=== PATIENT | female | born 1945 | race Caucasian/White ===

== ENCOUNTER → 2020-01-06 13:39 | Outpatient (BNVA) | payer MEDICARE, SELFPAY | PROVIDERS: Family Provider Family Medicine; PCP Family Medicine; Visit Provider Family Medicine | DX: M54.2 Cervicalgia (principal); M54.5 Low back pain; M25.512 Pain in left shoulder | CPT/HCPCS: 72040; 72100; 73030 ==

== ENCOUNTER → 2020-01-07 16:11 | Outpatient (BNVA) | payer MEDICARE, SELFPAY | PROVIDERS: Family Provider Family Medicine; PCP Family Medicine; Referring Provider Family Medicine; Visit Provider Orthopaedic Surgery | DX: M25.512 Pain in left shoulder (principal); S40.012A Contusion of left shoulder, initial encounter | CPT/HCPCS: 73030 ==

== ENCOUNTER 2021-06-01 15:16 | Outpatient (CLI) | payer MEDICARE, SELFPAY ==
--- NOTE | 2021-06-01 15:20 | USCV_ITS ---
Lorie Wong Age: 75 Gender: F : 1945 Exam Date: 06/01/2021 15:32 Ordering Phys: Zaida Arredondo EXPERIMENTAL PLASTICS FABRICATOR EXPERIMENTAL PLASTICS FABRICATOR Technologist: Khoi Us Exam Location: [facility] [place] Indication: dyspnea BP: 130 / 77 HR: 88 Rhythm: Sinus Technical Quality: Adequate MEASUREMENTS (Male / Female) Normal Values 2D ECHO LV Diastolic Diameter PLAX 4.7 cm 4.2 - 5.9 / 3.9 - 5.3 cm LV Systolic Diameter PLAX 3.7 cm IVS Diastolic Thickness 0.7 cm 0.6 - 1.0 / 0.6 - 0.9 cm IVS Systolic Thickness 1.3 cm LVPW Diastolic Thickness 1.0 cm 0.6 - 1.0 / 0.6 - 0.9 cm LVPW Systolic Thickness 1.1 cm LVOT Diameter 2.0 cm LV Ejection Fraction 2D Teich 42.6 % LV Ejection Fraction MOD 2C 19.8 % LV Ejection Fraction 2C AL 17.9 % LA Diameter 3.4 cm LA Width 2.4 cm Aorta at Sinotubular Diameter 3.3 cm M-MODE Aortic Annulus Diameter 2.5 cm LA Ao Ratio MM 1.3 MV E Point Septal Separation 1.3 cm DOPPLER AV Peak Velocity 139.0 cm/s LVOT Peak Velocity 93.0 cm/s AV Area Cont Eq vti 2.3 cm squared AV Area Cont Eq pk 2.2 cm squared MV Area PHT 5.0 cm squared Mitral E to A Ratio 0.7 MV E' Velocity 34.0 cm/s Mitral E to MV E' Ratio 10.6 Mitral E to LV E' Lateral Ratio 12.2 Mitral E to LV E' Septal Ratio 9.5 TR Peak Velocity 364.0 cm/s TR Peak Gradient 53.0 mmHg TV Peak E Velocity 82.0 cm/s Right Atrial Pressure 3.0 mmHg Pulmonary Artery Systolic Pressu 56.0 mmHg PV Peak Velocity 62.0 cm/s RV Acceleration Time 0.1 s FINDINGS Left Ventricle Normal left ventricular size. LV systolic function is moderate to severely reduced with EF of 30-35%. Moderate to severe global hypokinesis is seen. Grade 1 diastolic dysfunction Right Ventricle The right ventricle is normal in size and function. Right Atrium The right atrium is normal in size. Left Atrium The left atrium is mildly dilated Mitral Valve Structurally normal mitral valve without significant stenosis or prolapse. There is mild mitral regurgitation. Aortic Valve Aortic valve is thickened without significant stenosis. There is no aortic regurgitation. Tricuspid Valve Structurally normal tricuspid valve without significant stenosis. Mild to moderate tricuspid regurgitation. RVSP is 55- 60mmHg. This is consistent with mild to moderate pulmonary hypertension Pulmonic Valve Structurally normal pulmonic valve without significant stenosis. There is no pulmonic regurgitation. Pericardium Normal pericardium without effusion. Aorta Normal ascending aorta dimension. CONCLUSIONS LV systolic function is moderate to severely reduced with EF of 30-35% Moderate to severe global hypokinesis is seen Grade 1 diastolic dysfunction Mild mitral regurgitation Mild to moderate tricuspid regurgitation. RVSP is 55 to 60 mmHg. This is consistent with mild to moderate pulmonary hypertension Compared to prior echocardiogram from 01/09/2018, LV systolic function has decreased further. Aj Beauchamp MD (Electronically Signed) Final Date: 09 June 2021 12:23 S
== END 2021-06-01 15:17 | disposition home or self-care (01) ==
LOC: RAD 15:18
PROVIDERS: Visit Provider Nurse Practitioner Family
DX: R06.00 Dyspnea, unspecified (principal); I08.1 Rheumatic disorders of both mitral and tricuspid valves
CPT/HCPCS: 93306

== ENCOUNTER 2021-06-16 07:07 | Outpatient (CLI) | payer MEDICARE, SELFPAY ==
[2021-06-16 07:22] VITALS: BMI 17.8
--- NOTE | 2021-06-16 07:23 | ECG_ITS ---
[facility] Test Date: 2021-06-16 Pat Name: Lorie Wong Department: Room: Gender: Female Splitting Machine Feeder: Cyndy Pinto : 1945 Requested By: Laura Valentine Order Number: [id number] Gelacio MD: Laura Valentine M.D. Interpretive Statements NAME OF STUDY: LEXISCAN SESTAMIBI STRESS TEST INDICATION: Chest Pain, SEND RESULTS TO [facility] PROCEDURE: At the baseline, the EKG revealed sinus bradycardia with a rate of 52 bpm. Poor R wave progression. Nonspecific T wave changes. The baseline blood pressure was 136/85 mm Hg with a heart rate of 52 beats/min. Lexiscan was infused over a period of 20 seconds. A total of 0.4 milligrams of Lexiscan was infused. The stress phase was continued for a total of 5 minutes. Heart rate at the end of the stress phase was 93 with a blood pressure 146/76. The EKG at the peak infusion revealed no significant changes. Sestamibi was injected 20 seconds after the Lexiscan infusion. Blood pressure at the end of the recovery phase was 150/78 with a heart rate of 90 per minute. CONCLUSION: 1. No significant EKG changes with the LexiScan infusion 2. No LexiScan induced chest pain or cardiac arrhythmia 3. Normal blood pressure and heart rate response 4. Sestamibi/sestamibi perfusion scan pending; see separate report. Electronically Signed On 06-17-2021 19:37:19 BELT BUILDER HELPER by Laura Valentine M.D. [id number]
--- NOTE | 2021-06-16 07:24 | NMCV_ITS ---
NM celeste perf SPECT r/s* [id number] Lorie Wong Age: 75 Gender: F : 1945 Exam Date: 06/16/2021 08:03 Ordering Phys: Laura Valentine MD ([email or web address]) Technologist: STAN Clinton Exam Location: [facility] Indications: CHEST PAIN STRESS TEST Please see separate stress test report in [facility] for full findings IMAGE PROTOCOL Rest/Stress 1 Lexiscan Day Radiopharmaceutical Dose (mCi) Administration Site Administered by Rest: Tc-99m 10.6 IV STAN Hernandez Sestamibi Stress:Tc-99m 32.2 IV STAN Clinton Sestamishen Rest: 16-Jun-2021 60 Discovery 630 Stress: 16-Jun-2021 30 Discovery 630 0.4mg Lexiscan. Supine position only as patient was unable to lay prone. SPECT RESULTS Technical Quality: Good Raw Data Analysis: Normal Image Corrections: No attenuation or motion correction applied Summed Stress Score: 4 Summed Rest Score: 2 Summed Difference Score: 2 PERFUSION FINDINGS Moderate area of moderately decreases uptake in the basal and mid inferolateral, mid anteroseptal, apical septal and LV apex. Subtle area reversibility was noted in the basal inferolateral and LV apex FUNCTIONAL RESULTS (calculated via Gated SPECT) Stress Image LV EF (%): 48 Stress EDV (mL):128 TID: 1.03 Stress ESV (mL):67 FUNCTIONAL FINDINGS: Segmental wall motion analysis revealed mild diffuse hypokinesia of the LV apex. IMPRESSIONS 1. Myocardial perfusion imaging revealing moderate area of persistent decreased tracer uptake in the inferolateral, anteroseptal and some apical segments with small areas of reversibility in the basal inferolateral and LV apex suggesting myocardial scarring predominantly in the distribution of the left circumflex artery with small areas of ella-infarction ischemia. 2. Slightly diminished left ventricular ejection fraction of 40%. 3. LV wall motion analysis revealing mild diffuse hypokinesia of the LV apex. 4. Mildly dilated LV cavity with an end-systolic volume of 67 mL No similar previous studiesare available for comparison. Dr Laura Valentine MD FACC (Electronically Signed) Final Date: 16 June 2021 14:22 S
[2021-06-16] MEDS: regadenoson 0.4 Mg/5 ml Syringe IVP (08:39)
[2021-06-16 08:51] VITALS: BP 150/78; PULSE 91
== END 2021-06-16 07:08 | disposition home or self-care (01) ==
LOC: CDL 07:08
PROVIDERS: Visit Provider Internal Medicine Cardiovascular Disease
DX: R07.9 Chest pain, unspecified (principal); I25.9 Chronic ischemic heart disease, unspecified
CPT/HCPCS: 78452; 93017; A9500; J2785

== ENCOUNTER → 2021-06-22 15:29 | Outpatient (BNVA) | payer MEDICARE, SELFPAY | PROVIDERS: Visit Provider Internal Medicine Cardiovascular Disease | DX: I42.8 Other cardiomyopathies (principal); R00.1 Bradycardia, unspecified; I10 Essential (primary) hypertension; R55 Syncope and collapse | CPT/HCPCS: 99215 ==

== ENCOUNTER → 2021-07-13 09:55 | Outpatient (BNVA) | payer MEDICARE, SELFPAY | PROVIDERS: Visit Provider Thoracic Surgery (Cardiothoracic Vascular Surgery) | DX: Z20.822 Contact with and (suspected) exposure to COVID-19 (principal) | CPT/HCPCS: 99999 ==

== ENCOUNTER → 2021-07-14 13:26 | Outpatient (BNVA) | payer MEDICARE, SELFPAY | PROVIDERS: Visit Provider Thoracic Surgery (Cardiothoracic Vascular Surgery) | DX: I42.8 Other cardiomyopathies (principal) ==

== ENCOUNTER 2021-07-19 06:17 | Observation (INO) | payer MEDICARE, SELFPAY ==
[2021-07-13 11:52] VITALS: BMI 17.8
[2021-07-13 12:24] LABS: Basophils # 0.1 10^3/uL (0.0-0.1); Basophils % 0.7 %; Eosinophils # 0.3 10^3/uL (0.0-0.8); Eosinophils % 4.5 %; Hematocrit 44.9 % (37.0-47.0); Hemoglobin 14.5 g/dL (11.5-15.3); Lymphocytes # 1.4 10^3/uL (0.8-4.8); Lymphocytes % 20.5 %; Mean Corpuscular HGB Conc 32.3 g/dL (30.0-36.0); Mean Corpuscular Hemoglobin 30.8 pg (28.0-34.0); Mean Corpuscular Volume 95.3 fl (81-99); Mean Platelet Volume 9.7 fL (7.4-10.4); Monocytes # 0.4 10^3/uL (0.2-0.9); Monocytes % 6.2 %; Neutrophils # 4.71 10^3/uL (1.8-7.7); Nucleated Red Blood Cells % 0 %; Platelet Count 244 10^3/cmm (130-400); Red Blood Count 4.71 10^6/uL (4.1-5.3); Red Cell Distribution Width 13.2 % (12.1-15.1); White Blood Count 6.9 10^3/uL (4.0-10.0)
[2021-07-13 12:51] LABS: Anion Gap 10.8 (5-19); Blood Urea Nitrogen 15 mg/dL (8-23); Calcium 9.9 mg/dL (8.5-10.5); Carbon Dioxide 29 mmol/L (22-29); Chloride 103 mmol/L (98-107); Glucose 106 mg/dL (65-115); Osmolality Calculated 289 mOsm/kg (285-295); Potassium 3.8 mmol/L (3.5-5.1); Sodium 139 mmol/L (136-145)
[2021-07-13 13:02] LABS: Add Urine Microscopic? NO; Bilirubin Urine Neg (Negative); Blood Urine Neg (Negative); Charge for UA Resulting for Rev; Glucose Urine UA Norm (Normal); Ketones Urine Negative (Negative); Leukocyte Esterase Urine Negative (Negative); Nitrate Urine Negative (Negative); Protein Urine Neg (Negative); Specific Gravity, Urine 1.005 (1.005-1.030); Urine Appearance Clear (CLEAR); Urine Color Straw (Yellow); Urobilinogen Urine Norm (Negative); pH Urine 7 (5-7)
[2021-07-13 13:16] LABS: Adenovirus Not Detected (NOT DETECT); Chlamydia Pneumoniae Not Detected (NOT DETECT); Coronavirus 229E,HKU1,NL63,OC4 Not Detected (NOT DETECT); Human Metapneumovirus Not Detected (NOT DETECT); Human Rhinovirus/Enterovirus Not Detected (NOT DETECT); Influenza A Not Detected (NOT DETECT); Influenza A H1 Not Detected (NOT DETECT); Influenza A H1-2009 Not Detected (NOT DETECT); Influenza A H3 Not Detected (NOT DETECT); Influenza B Not Detected (NOT DETECT); Mycoplasma Pneumoniae Not Detected (NOT DETECT); Parainfluenza Virus Type 1 Not Detected (NOT DETECT); Parainfluenza Virus Type 2 Not Detected (NOT DETECT); Parainfluenza Virus Type 3 Not Detected (NOT DETECT); Parainfluenza Virus Type 4 Not Detected (NOT DETECT); Respiratory Syncytial Virus A Not Detected (NOT DETECT); Respiratory Syncytial Virus B Not Detected (NOT DETECT); SARS-COV-2 Not Detected (NOT DETECT)
--- NOTE | 2021-07-13 16:26 | ANES.PREANE2 ---
Pre-Anesthetic Assessment Height/Weight: Height 1.7 m Weight 51.71 kg Preop Diagnosis: Non ischemic cardiomyopathy w/ symptomatic bradycardia Operation Date: 07/19/21 07:00 Proposed Procedures p Defibrillator Placement(Not Applicable) - Levi Evans MD Familial anesthetic complications: None Was Beta Debi taken within 24 hours: N/A Was Clonidine taken within 24 hours: N/A Social No alcohol and No tobacco Exam alert, oriented x 3, clear to auscultation bilaterally and regular rate & rhythm Airway Submandibular: within normal limits Cervical ROM: Other (Limited ROM ) Mallampati: Class II Comments: Comments: Missing teeth, poor dentition Pulmonary None reported CV/HEM Arrythmia (2nd degree block, ectopic supraventricular and ventricular beats ), Congestive Heart Failure (Cardiomyopathy w/ EF of 30-40% on stress test improved since TTE 05/2021), Hypertension and Murmur (MR, TR) Hx of viral pericarditis w/ effusion Atypical chest pain Uses PRN nitroglycerin Bradycardia w/ near syncope Data from Cardiology Note 06/16/21 Stress Test ?1.? Myocardial perfusion imaging revealing moderate area of persistent ?decreased tracer uptake in the inferolateral, anteroseptal and some apical ?segments with small areas of reversibility in the basal inferolateral and LV ?apex suggesting myocardial scarring predominantly in the distribution of the ?left circumflex artery with? small areas of ella-infarction ischemia. ?2.? Slightly diminished left ventricular? ejection fraction of 40%. ?3.? LV wall motion analysis revealing mild diffuse hypokinesia of the LV apex. ?4.? Mildly dilated LV cavity with? an end-systolic volume of 67 mL ?No similar previous studiesare? available for comparison. 1. No significant EKG changes with the LexiScan infusion 2. No LexiScan induced chest pain or cardiac arrhythmia 3. Normal blood pressure and heart rate response 06/01/21 Echo LV systolic function is moderate to severely reduced with EF of ?30-35% ?Moderate to severe global hypokinesis is seen ?Grade 1 diastolic dysfunction ?Mild mitral regurgitation ?Mild to moderate tricuspid regurgitation.? RVSP is 55 to 60 ?mmHg.? This is consistent with mild to moderate pulmonary ?hypertension ?Compared to prior echocardiogram from 01/09/2018, LV systolic ?function has decreased further. 05/12/21 Event Monitor 1.? The baseline rhythm was found to be [normal sinus] with a first-degree AV block and overall average heart rate beat of 67 bpm.? Very frequent supraventricular ectopics and occasional ventricular ectopics were noted 2.? Episodes of second-degree type I and type II AV block's with? bradycardia and the lowest heart rate of 28 bpm was noted on 05/13/2021 at 11:28 PM.? This was found to be asymptomatic.? 1 episode of nonsustained nuclear tachycardia 4 beats was found to be asymptomatic 3.? There is 1 pause of 3.2 seconds associated with a second-degree type I AV block, occurred on 06/09/2021 at 2:31 AM. No similar previous studies are available for comparison EKG from 05/05/2021 Shows multifocal atrial rhythm.? Left axis deviation Nonspecific T wave changes Poor R wave progression None reported Hepatic None reported GI None reported Metabolic None reported Musc/skel None reported Neuropsych Anxiety Anesthetic Plan ASA status: 3 Anesthesia: Anesthesia Evaluation, General and MAC Other: I discussed with the patient risks, goals, and benefits of MAC and general anesthesia. We discussed spectrum of MAC anesthesia including conversion to general as well as possibility of recall of intraoperative stimuli including discomfort/pain. We discussed risk and benefits of general anesthesia including PONV, sore throat (sometimes severe), corneal abrasion, positioning and peripheral nerve injuries, life threatening allergic reaction, post operative ICU admission requiring prolonged intubation, stroke, heart attack, , and rare incidences of recall. Patient consents to proceed with MAC or general anesthesia pending further discussion w/ surgeon. Risk of > 500 ml blood loss (7ml/kg in children): No Medications/Allergies Home Medications Medication Instructions Recorded Confirmed Last Taken Type losartan 25 mg tablet 25 mg PO DAILY tab 10/13/19 07/13/21 Unknown History nitroglycerin 0.4 mg sublingual 0.4 mg SUBLINGUAL Q5M PRN 10/13/19 07/13/21 Unknown History tablet aspirin 81 mg tablet,delayed 81 mg PO DAILY #30 tab 06/22/21 07/13/21 Unknown Rx release (Adult Aspirin Regimen) Allergies Allergy/AdvReac Type Severity Reaction Status Date / Time No Known Allergies Allergy Verified 06/22/21 09:22 [facility] Anesthesia Medical History Anxiety Arrhythmia Benign essential HTN Cardiomyopathy History of chronic fatigue Hx of cardiac arrhythmia Hx of cardiomyopathy Hx of chest pain Hx of essential hypertension Hx of viral pericarditis Hypertension Near syncope Surgical History History of breast lump removal History of partial hysterectomy Family History Brother CAD (coronary artery disease) unknown age of onset Mother Dementia Father Diabetes Other Suicide Denies family history of Clotting disorder Chronic kidney disease (CKD) Anesthesia complication Bleeding disorder Lung disease Cancer Stroke Social History Smoking and tobacco status: never smoked Second hand smoke exposure: Yes Alcohol intake: never Lives independently: Yes Household members: significant other Marital status: Life Partner History of recent travel: No Current gender identity: Female Special yennifer needs: No Agree to transfusion: Yes Data Anesthesia : 07/13/21 12:09 07/13/21 12:09 Short CBC 07/13/21 Range/Units 12:09 WBC 6.9 (4.0-10.0) 10^3/uL Hgb 14.5 (11.5-15.3) g/dL Hct 44.9 (37.0-47.0) % MCV 95.3 (81-99) fl Plt Count 244 (130-400) 10^3/cmm Neut % (Auto) 68.0 % Neut # (Auto) 4.71 (1.8-7.7) 10^3/uL BMP 07/13/21 12:09 Sodium 139 Potassium 3.8 Chloride 103 Carbon Dioxide 29 BUN 15 Creatinine 0.5 Glucose 106 Calcium 9.9 Urine 07/13/21 Range/Units 11:44 Urine Color Straw (Yellow) Urine Appearance Clear (CLEAR) Urine pH 7 (5-7) Ur Specific [place] 1.005 (1.005-1.030) Urine Protein Neg (Negative) Urine Glucose (UA) Norm (Normal) Urine Ketones Negative (Negative) Urine Nitrate Negative (Negative) Urine Bilirubin Neg (Negative) Ur Leukocyte Esterase Negative (Negative) COVID Results 07/13/21 10:05 Coronavirus 229E (PCR) Not detected SARS-CoV-2 (PCR) Not detected Cardiac Studies: Echocardiogram 06/01/21 Sestamibi Stress Test (Cardiology) 06/16/21 Cardiac Event Monitor 05/12/21 Holter Monitor 11/12/19
[2021-07-19] VITALS (36 sets, daily range): BP systolic 93–172; BP diastolic 55–100; PULSE 60–88; RESP 15–26; TEMP 36.5–37.1; O2SAT 95–100
--- NOTE | 2021-07-19 | SCC_ITS ---
Procedure done: 2-lead AICD implantation 164.8 seconds of fluoroscopic guidance, for a cumulative dose of 19.18 mGy, was provided to Dr. Evans by the radiology department. C-arm images of the chest were saved for the patient's permanent record. [facility]
--- NOTE | 2021-07-19 06:17 | XR_ITS ---
WS: [id number] XR chest 1V portable [id number] REASON FOR EXAM: Preop for AICD implantation FINDINGS: Chest is unchanged compared to 10/26/2017. Mild tortuosity the thoracic aorta without aneurysmal dilatation. Moderate cardiomegaly. Calcified granulomatous disease in both hemithoraces. No acute pulmonary parenchymal pleural disease. Mild to moderate degenerative spondylosis in the mid and lower thoracic spine. XR/XR chest 1V portable [id number] IMPRESSION: Cardiomegaly. No acute chest abnormality.
--- NOTE | 2021-07-19 06:17 | SC_ITS ---
WS: [id number] INTRAOPERATIVE TECHNIQUE: 2 Spot fluoroscopic images for intraoperative purposes. FLUOROSCOPY TIME: 164.8 seconds CLINICAL INFORMATION: AICD implantation COMPARISON: None. FINDINGS: Fluoroscopy used for cardiac pacer placement. Dual lead cardiac pacer wires visualized. SC/C-arm FL for Pacemaker IMPRESSION: Images obtained for intraoperative purposes.
--- NOTE | 2021-07-19 06:47 | W.PM.OPSUD ---
Surgery/Procedure H&P Update DATE OF PROCEDURE: July 19, 2021 DATE H&P PERFORMED: 07/14/21 H&P UPDATE INFORMATION: I have reviewed H&P completed within last 30 days, I have examined patient prior to procedure and No changes to prior documentation PREOP DIAGNOSIS: Medically refractory cardiomyopathy PRIMARY INDICATION FOR PROCEDURE: Nonischemic cardiomyopathy PLANNED PROCEDURE: Operation Date: 07/19/21 07:00 Proposed Procedures p Defibrillator Placement(Not Applicable) - Levi Evans MD
[2021-07-19] MEDS: sodium chloride 0.9% 1,000 ML 30 ML IV (06:48)
--- NOTE | 2021-07-19 06:51 | P.ANESUD_ITS ---
Pre-Anesthetic Update Pre-Anesthetic Assessment: Date of Surgery/Procedure: 07/19/21 Preop Elyssa gnosis: Medically refractory cardiomyopathy Proposed Procedure: Operation Date: 07/19/21 07:00 Proposed Procedures p Defibrillator Placement(Not Applicable) - Levi Evans MD Any changes to Pre-Anesthetic Assessment?: No Last Intake: Intake Last Liquid Date 07/18/21 Last Liquid Time 22:00 Last Solid Date 07/18/21 Last Solid Time 22:00 Vitals: Temperature 98.4 F 07/19/21 06:35 Temperature Source Temporal Artery S can 07/19/21 06:35 Pulse Rate 69 07/19/21 06:35 Pulse Rhythm 07/19/21 06:35 Pulse Strength 3+ Normal 07/19/21 06:35 Respiratory Rate 18 07/19/21 06:35 Blood Pressure 167/85 07/19/21 06:35 Blood Pressure Nica n 112 07/19/21 06:35 Pulse Oximetry 98 07/19/21 06:35 Oxygen Delivery Me thod 07/19/21 06:35 Exam: Pre-Anes Outpt Exam: alert, oriented x 3, clear to auscultation b ilaterally and regular rate & rhythm Other Pertinent Information: Other Pertinent Information: Took losartan 07/19/2021 with sip of water Cardiac Studies: Echocardiogram 06/01/21 Sestamibi Stress Test (Cardiology) 06/16/21 Cardiac Event Monitor 05/12/21 Holter Monitor 11/12/19
[2021-07-19] MEDS: ceFAZolin 1,000 mg SDV 1000 MG IRRIGATION (07:18)
[2021-07-19] MEDS: lidocaine 1% INJ 50 mL INJECTION (07:18)
--- NOTE | 2021-07-19 07:33 | XR_ITS ---
WS: [id number] PORTABLE CHEST HISTORY: DEFIB PLACEMENT (IN OR 1) COMPARISON: 07/19/2021 at 6:27 AM. Since the prior examination a LEFT subclavian dual lead defibrillator has been placed. There is a casandra y tiny LEFT apical pneumothorax. Cardiac size: Moderately enlarged. Adjacent atelectasis. Mild interstitial thickening may be due to s mall amount of fluid overload or atelectasis. Mediastinum/Aorta: Atherosclerosis aorta. No osseous abnormality seen. XR/XR chest 1V portable [id number] IMPRESSION: 1. Very tiny LEFT apical pneumothorax. 2. LEFT subclavian defibrillator placed since the prior study with position. 3. Cardiomegaly and suspect mild development of CHF. Notified Levi Evans MD at 07/19/2021 9:01 AM. LEFT message with answering ser vice.
--- NOTE | 2021-07-19 09:22 | SUR.PHASEI ---
0907 PT TO PACU 5 AWAKE ALERT TALKATIVE, NO RESP DISTRESS NOTED PT ON 3NC PER DR GARZON'S BEDSIDE REQUEST, WARM BLANKETS X 2 TO PT, VSS HOB AT 40 DEGREES, BILAT SCDS ON PT. DRESSING TO LT SHOULDER D/I SHOULDER IMMOBILIER IN PLACE, VSS. IV PATENT TO RT FOREARM #18.
--- NOTE | 2021-07-19 09:33 | P.OP_ITS ---
Operative Report Date of procedure: July 19, 2021 Pre-op diagnosis: Preop Diagnosis Medically refractory cardiomyopathy Post-op diagnosis: same Procedure done: 2-lead AICD implantation Implants: 2 leads atrial and ventricular Automatic implantable cardiac defibrillator generator. Pathology: none sent Surgeon: Levi Evans Anesthesia: MAC and Local Complications: Postop x-ray reveals tiny left apical pneumothorax. No obvious detriment to her pulmonary status of her oxygen saturation. Brief History: Ms. Wong is a frail, thin, short statured 75-year-old female with cardiomyopathy which has been medically refractory. She also has Holter monitoring reports revealing AV heart block intermittently. Dual-lead defibrillator implantation has been recommended by Dr. Valentine. Patient was evaluated preoperatively on outpatient basis and after careful discussion was stopped and scheduled for implantation. Details of risk of the procedure were carefully reviewed. Appropriate consents have been reviewed and signed. Procedure: Procedure: Ms Wong was taken to the OR suite and placed in the supine position over a shoulder roll. She received conscious sedation with continuous anesthesia monitoring by. Her entire chest was sterilely prepped and draped. 1% lidocaine was infiltrated in the left subclavicular region. While in Trendelenburg position, utilizing modified seldinger technique, a guidewire was placed in the left subclavian vein. This was confirmed in position by fluoroscopy. During the aspiration fortifying the left subclavian vein, there was suspicion that perhaps a small volume of air had been collected which could represent lung parenchymal injury. Patient was carefully observed throughout the remainder of the procedure and showed no evidence for pulmonary compromise or change in oxygen saturation. Receptive placed a second guidewire through the subclavian vein utilizing a 2 wire technique through the introducer. Next, after infiltration with lidocaine, a subcutaneous pocket was created beginning from the exit point of the guidewire and extending laterally and inferiorly. Cautery was utilized to create the pocket just above the pectoralis musculature. Hemostasis was confirmed. An antibiotic-soaked sponge was placed in the wound. A dilator and tear-away sheath was placed over the guidewire and advanced under fluoroscopy. Guidewire and dilator were removed. Next using a combination of curved and straight stylettes, the right ventricular lead was placed in position by fluoroscopy. The distal screw was extended. Interrogation was then performed confirming appropriate parameters. The tear-away sheath was then removed and the ventricular lead was sewn to the floor of the subcutaneous pocket. Next, atrial lead was placed in a similar fashion with fluoroscopic guidance. Patient was noted to be in atrial flutter at the time of atrial lead placement, therefore complete interrogation could not be completed. Generator was brought into the field, and after confirmation of hemostasis in the s ubcutaneous pocket, the leads was connected to the generator with appropriate capture. The entire system was interrogated by fluoroscopy. Leads and generator were secured in the pocket. Sponge and needle count was correct. The wound was then closed in 2 layers of 3-0 Vicryl suture. Skin was reapproximated in a subcuticular manner with 4-0 Monocryl suture. A pressure dressing was applied. The left arm was placed in a sling. She had equal breath sounds bilaterally. Chest x-ray was obtained on the OR table. No obvious anomalies were noted, though upon review by Dr. Lama from radiology, she states there is a tiny left apical pneumothorax She was then transferred to the outpatient surgery department, where a follow-up chest x-ray is currently pending. I did director of group counseling program with the family at the completion of the procedure. I will plan to monitor her in the ICU over the next several hours to confirm respiratory status remained stable. Following are the specifics of this system: Right ventricular lead is 62 cm and model 6935M. Serial number [id number] Atrial lead is 52 cm and model 5076. Serial number [id number] Ventricular lead had sensing of 6.9 mV with an impedance of 922 ohms. Threshold was 0.5 V Atrial lead had a sensing of 1.2 with an impedance of 494. Atrial arrhythmia did not allow for threshold measurement. Heckyl AICD generator: Model # [id number] Serial # [id number]
--- NOTE | 2021-07-19 09:42 | SUR.PHASEI ---
0910 PT MONITOR 90% PACED 0943 PT RESTING QUIETLY , VSS , LT CHEST DRESSING D/I ARM IMMOBILIZER IN PLACE, DR GARZON HERE AT BEDSIDE PT TO GO TO ICU 12
--- NOTE | 2021-07-19 09:58 | SUR.PHASEI ---
0950 LT UPPER LOBE DIMINISHED BREATH SOUNDS, O2 SATS 100% ON 3LNC NO OBVIOUS DISTESS NOTED.
--- NOTE | 2021-07-19 10:30 | PC.NURSE ---
Pt arrives to ICU from PACU. Pt alert and oriented. Pacemaker/AICD site dressing clean, dry and intact. Pacing/a-fib noted on monitor. Orientation to room, call light and ICU provided to pt and .
[2021-07-19] MEDS: lactated ringers 1,000 ML 75 ML IV (11:08)
[2021-07-19] MEDS: HYDROcodone-acetaminophen 5-325 mg Tablet 1 TAB PO ×2 (11:08→21:59)
--- NOTE | 2021-07-19 11:08 | ANE.PACU2 ---
Inpatient post-anesthesia follow up: Airway intact: Yes Vital signs: Temperature 98.0 F Pulse Rate 64 Respiratory Rate 18 Blood Pressure 154/84 Pulse Oximetry 100 Oxygen Delivery Me thod Nasal Cannula Oxygen Flow Rate 3 Fraction of Inspir ed Oxygen Hydration adequate: Yes Nausea and vomiting: No Pain level: 1 Mental status: Baseline
--- NOTE | 2021-07-19 12:57 | XR_ITS ---
WS: [id number] XR chest 1V portable [id number] REASON FOR EXAM: Pneumothorax. AICD implantation FINDINGS: Interstitial changes centrally have resolved compared to the examination of 07/19/2021. No left pneumothorax is identifiable at this time. No other interval change or new finding compared to 07/19/2021. XR/XR chest 1V portable [id number] IMPRESSION: Presumed resolution of pulmonary edema/CHF.
[2021-07-19] MEDS: ceFAZolin 1,000 MG in sodium chloride 0.9% (plus) 50 ML 100 MG IV ×2 (15:19→22:01)
--- NOTE | 2021-07-19 18:41 | PC.NURSE ---
Shift Note: NO ectopy noted on monitor. Heart rhythm sinus and/or paced. Pt received hydrocodone once, no further complaints of pain. No complains of nausea or dizziness. Pt up to BSC with 1 assist, no issues. Pt up to chair at bedside at this time, bare minimum assist needed, mostly for equipment/cables. Shoulder immobilizer removed by Dr Evans this afternoon, movement restrictions discussed. Frequent safety and comfort rounds continue. Orders and/or nursing care completed as indicated. Patient monitored for response to intervention and treatment(s). Education provided includes Hydrocodone, cefazolin, and shoulder restrictions. Patient and/or client relations representative verbalized understanding of ongoing plan of care and medications Will continue to monitor.
--- NOTE | 2021-07-19 19:14 | PC.NURSE ---
Caroline report with Leidy Condon RN.
[2021-07-20] MEDS: lactated ringers 1,000 ML 75 ML IV (00:28)
--- NOTE | 2021-07-20 02:36 | PC.NURSE ---
Handoff Report Handoff report given to KENROY Guevara.
[2021-07-20 06:00] VITALS: PULSE 70
--- NOTE | 2021-07-20 06:00 | XR_ITS ---
WS: [id number] XR chest 1V portable [id number] REASON FOR EXAM: POD #1 status post pacemaker/apical pneumothorax FINDINGS: Battery pack in place over the left chest with transverse left subclavian vein leads to the right atr ium and right ventricular apex. Cardiomegaly. Moderate tortuosity thoracic aorta without aneurysmal d ilatation. No acute pulmonary parenchymal or pleural abnormality noted. No left pneumothorax is identified. The chest is stable in appearance compared to 07/19/2021. XR/XR chest 1V portable [id number] IMPRESSION: Stable chest. No pneumothorax identified.
--- NOTE | 2021-07-20 06:06 | PM.PN ---
Subjective Subjective: POD #1 status post AICD implantation. Nurses report uneventful night. Occasional PVCs. Ms. Wong stated she slept well last night. Minimal chest wall discomfort. Outer pressure dressing was removed. Inner dressing is clean and dry. No localized swelling or evidence for fluid collection. No substantial ecchymosis. No breathing difficulties. Chest x-ray obtained around 1 PM yesterday revealed no evidence for pneumothorax and good lead placement. Pulmonary edema had resolved. Vitals/I&O/Wt Last Vital Signs Temp 98.7 F 07/19/21 15:00 Pulse 67 07/19/21 22:00 Resp 23 H 07/19/21 18:00 BP 127/70 07/19/21 18:00 Pulse Ox 99 07/19/21 18:00 07/19/21 07/19/21 07/20/21 14:59 22:59 06:59 Intake Total 350 / 350 600 / 950 1000 / 1950 Output Total 5 / 5 500 / 505 Balance 345 / 345 100 / 445 1000 / 1445 Physical Exam Chest: OTHER: No fluid collection or ecchymosis at incision site. Only localized tenderness. No erythema. Resp: COMMON NORMALS: normal respiratory effort, No use of accessory muscles and clear to auscultation bilaterally AUSCULTATION: clear to auscultation bilaterally Cardio: COMMON NORMALS: regular rate and regular rhythm RATE: regular rate RHYTHM: regular rhythm OTHER: Occasional ectopic beat consistent with PVCs noted on monitor. GI: COMMON NORMALS: Normal to inspection, nondistended, normoactive bowel sounds present Extremity: COMMON NORMALS: no clubbing, cyanosis or edema Data : 07/13/21 12:09 07/13/21 12:09 A&P Assessment and plan (1) Status post implantation of automatic cardioverter/defibrillator (AICD): Postop day #1 status post AICD implantation. Plan: We will plan to discharge to home today with follow-up in [facility] in 1 week. Status: Acute Attestations Medical Necessity Statement*: POD #1 status post AICD implantation for nonischemic cardiomyopathy. Coding Level of Care Code Acute Director Of Enterprise Applications for [facility] Fwd Diagnoses Status post implantation of automatic cardioverter/defibrillator (AICD) Z95.810
--- NOTE | 2021-07-20 06:13 | P.DS_ITS ---
Discharge Providers Date of Admission: 07/19/21 06:17 Date of Discharge: July 20, 2021 Attending Provider at Admission: Levi Evans MD Attending Provider at Discharge: Levi Evans MD Primary Care Provider: William Arredondo MD Diagnoses at Discharge Discharge Diagnosis (1) Status post implantation of automatic cardioverter/defibrillator (AICD): Details from hospital stay: Ms. Wong is a 75-year-old female who was referred to our service originally for AICD implantation due to medically refractory nonischemic cardiomyopathy and documented sinus pauses with protracted bradycardia on Holter monitoring. She underwent careful outpatient preoperative evaluation. She was electively admitted yesterday and underwent 2-lead AICD implantation. Initial x-ray did suggest a tiny left apical pneumothorax. She was placed in the ICU for careful observation and placed on oxygen for nitrogen washout. Follow-up chest x-ray 4 hours later revealed no evidence for pneumothorax and appropriate lead positioning. She has had uneventful night with careful monitoring. Occasional PVCs noted. Only modest incisional discomfort. Pressure dressing was removed this morning. There is no evidence for fluid collection, erythema, drainage, or substantial ecchymosis. She is tolerating a diet well. She is eager for discharge to home. Vital signs have remained stable. She will be discharged home today in stable condition for scheduled follow-up in the [facility] in 1 week. I will continue oral antibiotics prophylactically for 3 days. At the time of discharge, she is in stable condition. Status: Acute Physical Exam Const: COMMON NORMALS: patient oriented x3 Chest: COMMONS NORMALS: normal inspection of the chest OTHER: Outer pressure dressing was removed. Inner surgical dressing remains clean and dry. No local swelling, fluid collection, or ecchymosis. No erythema. Resp: COMMON NORMALS: normal respiratory effort, No use of accessory muscles and clear to auscultation bilaterally AUSCULTATION: clear to auscultation bilaterally Cardio: COMMON NORMALS: regular rate, regular rhythm, S1 normal heart sound present and No rub (Cardio) RATE: regular rate RHYTHM: regular rhythm HEART SOUNDS: S1 normal heart sound present GI: COMMON NORMALS: Normal to inspection, nondistended, normoactive bowel sounds present Extremity: COMMON NORMALS: no clubbing, cyanosis or edema Neuro: COMMON NORMALS: patient oriented x3, no focal motor deficits and no sensory deficits noted Discharge Data Studies Completed and Pending Completed Studies During Hospitalization Category Date Time Status XR chest 1V portable [id number] Routine Exams 07/19/21 06:17 Completed XR chest 1V portable [id number] Routine Exams 07/19/21 07:33 Completed XR chest 1V portable [id number] Routine Exams 07/19/21 12:57 Completed Pending at discharge Category Date Time Status XR chest 1V portable [id number] Routine Exams 07/20/21 06:00 Taken Radiology Impressions C-Arm Fluoroscopy 07/19/21 06:17 IMPRESSION: Images obtained for intraoperative purposes. Laboratory Results WBC 6.9 10^3/uL (4.0-10.0) 07/13/21 12:09 RBC 4.71 10^6/uL (4.1-5.3) 07/13/21 12:09 Hgb 14.5 g/dL (11.5-15.3) 07/13/21 12:09 Hct 44.9 % (37.0-47.0) 07/13/21 12:09 MCV 95.3 fl (81-99) 07/13/21 12:09 MCH 30.8 pg (28.0-34.0) 07/13/21 12:09 MCHC 32.3 g/dL (30.0-36.0) 07/13/21 12:09 RDW 13.2 % (12.1-15.1) 07/13/21 12:09 Plt Count 244 10^3/cmm (130-400) 07/13/21 12:09 MPV 9.7 fL (7.4-10.4) 07/13/21 12:09 Neut % (Auto) 68.0 % 07/13/21 12:09 Lymph % (Auto) 20.5 % 07/13/21 12:09 [place] % (Auto) 6.2 % 07/13/21 12:09 Eos % (Auto) 4.5 % 07/13/21 12:09 Baso % (Auto) 0.7 % 07/13/21 12:09 Neut # (Auto) 4.71 10^3/uL (1.8-7.7) 07/13/21 12:09 Lymph # (Auto) 1.4 10^3/uL (0.8-4.8) 07/13/21 12:09 [place] # (Auto) 0.4 10^3/uL (0.2-0.9) 07/13/21 12:09 Eos # (Auto) 0.3 10^3/uL (0.0-0.8) 07/13/21 12:09 Baso # (Auto) 0.1 10^3/uL (0.0-0.1) 07/13/21 12:09 Nucleated RBC % (auto) 0 % 07/13/21 12:09 Nucleated RBCs # 0.0 /100WBC 07/13/21 12:09 Sodium 139 mmol/L (136-145) 07/13/21 12:09 Potassium 3.8 mmol/L (3.5-5.1) 07/13/21 12:09 Chloride 103 mmol/L (98-107) 07/13/21 12:09 Carbon Dioxide 29 mmol/L (22-29) 07/13/21 12:09 Anion Gap 10.8 (5-19) 07/13/21 12:09 BUN 15 mg/dL (8-23) 07/13/21 12:09 Creatinine 0.5 mg/dL (0.5-0.9) 07/13/21 12:09 GFR Calculation Not Reportable 07/13/21 12:09 Glucose 106 mg/dL (65-115) 07/13/21 12:09 Calculated Osmolality 289 mOsm/kg (285-295) 07/13/21 12:09 Calcium 9.9 mg/dL (8.5-10.5) 07/13/21 12:09 Urine Color Straw (Yellow) 07/13/21 11:44 Urine Appearance Clear (CLEAR) 07/13/21 11:44 Urine pH 7 (5-7) 07/13/21 11:44 Ur Specific [place] 1.005 (1.005-1.030) 07/13/21 11:44 Urine Protein Neg (Negative) 07/13/21 11:44 Urine Glucose (UA) Norm (Normal) 07/13/21 11:44 Urine Ketones Negative (Negative) 07/13/21 11:44 Urine Blood Neg (Negative) 07/13/21 11:44 Urine Nitrate Negative (Negative) 07/13/21 11:44 Urine Bilirubin Neg (Negative) 07/13/21 11:44 Urine Urobilinogen Norm mg/dL (Negative) 07/13/21 11:44 Ur Leukocyte Esterase Negative (Negative) 07/13/21 11:44 Coronavirus 229E (PCR) Not detected (NOT DETECT) 07/13/21 10:05 SARS-CoV-2 (PCR) Not detected (NOT DETECT) 07/13/21 10:05 Vitals Last Vital Signs Temp 98.7 F 07/19/21 15:00 Pulse 70 07/20/21 06:00 Resp 23 H 07/19/21 18:00 BP 127/70 07/19/21 18:00 Pulse Ox 99 07/19/21 18:00 Discharge Plan Discharge Condition: Stable Prescriptions: New hydrocodone-acetaminophen 5-325 mg Tablet 1 tab PO Q6H PRN (Reason: Moderate Pain) Qty: 20 0RF sulfamethoxazole-trimethoprim [Bactrim DS] 800-160 mg tablet 1 tab PO BID Qty: 6 0RF Continued nitroglycerin 0.4 mg tablet, sublingual 0.4 mg SUBLINGUAL Q5M PRN (Reason: Chest Pain) 0RF Rx Instructions: do not exceed 3 doses per episode losartan 25 mg tablet 12.5 mg PO DAILY 0RF aspirin [Adult Aspirin Regimen] 81 mg tablet,delayed release (DR/EC) 81 mg PO DAILY Qty: 90 3RF Discharge Orders: Discharge Order (Routine); Ordered 07/20/21 Ordered By: Levi Evans Referrals: [facility] [Provider Group] - 1 week (Pacemaker Clinic) Discharge Diet: Usual diet Discharge Activity: Limit activity as instructed Patient Instructions: Opioid Safety Activity Restrictions/Additional Instructions: May remove bandage in 2 days May begin daily showers in 3 days No swimming or tub baths x 2 weeks No ointments on incision Report drainage, redness, heat, increased pain, or swelling to clinic Do not raise left arm above eye level for 1 week. No heavy lifting or pulling with left arm x2 weeks Discharge Attestations Time Spent in Discharge Care*: less than 30 min Specific Discharge Activities: educating patient, discussing with community case manager/social workers/dc planners, documenting/other paperwork and evaluating patient/reviewing data Status at Discharge: Cognitive status at discharge: cognitively intact , Behavioral status at discharge: cooperative , Functional status at discharge: independent ambulation , Overall status at discharge: patient is back to baseline Quality Metrics Clinical Quality Measures [ No reported AMI, CVA or VTE this stay] Coding Level of Care Code Acute Chg FW DC note Diagnoses Status post implantation of automatic cardioverter/defibrillator (AICD) Z95.810
[2021-07-20] MEDS: ceFAZolin 1,000 MG in sodium chloride 0.9% (plus) 50 ML 100 MG IV (06:17)
[2021-07-20 08:22] VITALS: BP 160/98
[2021-07-20] MEDS: losartan 50 mg Tablet 25 MG PO (08:22)
[2021-07-20] MEDS: pantoprazole DR 40 mg Tablet PO (08:22)
[2021-07-20 09:56] VITALS: BP 160/98
== END 2021-07-20 09:57 | disposition home or self-care (01) ==
LOC: OR 06:23 → ICU 10:25
PROVIDERS: Admitting Provider Thoracic Surgery (Cardiothoracic Vascular Surgery); Visit Provider Thoracic Surgery (Cardiothoracic Vascular Surgery)
PROC: 0JH608Z Insertion of Defibrillator Generator into Chest Subcutaneous Tissue and Fascia, Open Approach (ICD-10-PCS; CPT 33249; principal; 2021-07-19 07:00)
DX: I42.8 Other cardiomyopathies (principal); I44.1 Atrioventricular block, second degree; I10 Essential (primary) hypertension; Z79.82 Long term (current) use of aspirin; F41.9 Anxiety disorder, unspecified
CPT/HCPCS: 33249; 71045; 76000; 80048; 81003; 85025; 87635; C1721; C1777; C1779; G0378; J0690; J2250; J2704; J3010; J7030

== ENCOUNTER → 2021-07-27 11:02 | Outpatient (BNVA) | payer MEDICARE, SELFPAY | PROVIDERS: Visit Provider Nurse Practitioner Family | DX: Z09 Encounter for follow-up examination after completed treatment for conditions other than malignant neoplasm (principal); Z95.810 Presence of automatic (implantable) cardiac defibrillator; I10 Essential (primary) hypertension; Z79.82 Long term (current) use of aspirin | CPT/HCPCS: 99213; 99214 ==

== ENCOUNTER → 2021-08-11 14:06 | Outpatient (BNVA) | payer MEDICARE, SELFPAY | PROVIDERS: Visit Provider Internal Medicine Cardiovascular Disease | DX: Z09 Encounter for follow-up examination after completed treatment for conditions other than malignant neoplasm (principal); Z95.810 Presence of automatic (implantable) cardiac defibrillator; I42.8 Other cardiomyopathies; I49.49 Other premature depolarization; I11.0 Hypertensive heart disease with heart failure | CPT/HCPCS: 99213 ==

== ENCOUNTER → 2021-08-19 09:44 | Outpatient (BNVA) | payer MEDICARE, SELFPAY | PROVIDERS: Visit Provider Internal Medicine Cardiovascular Disease | DX: Z45.02 Encounter for adjustment and management of automatic implantable cardiac defibrillator (principal) | CPT/HCPCS: 93283 ==

== ENCOUNTER → 2021-10-06 15:19 | Outpatient (BNVA) | payer MEDICARE, SELFPAY | PROVIDERS: Visit Provider Nurse Practitioner Family | DX: R42 Dizziness and giddiness (principal); R68.89 Other general symptoms and signs; I10 Essential (primary) hypertension; R05.9 Cough, unspecified; G47.00 Insomnia, unspecified; F41.9 Anxiety disorder, unspecified; F32.A Depression, unspecified; R53.1 Weakness; R53.83 Other fatigue; J40 Bronchitis, not specified as acute or chronic | CPT/HCPCS: 80053; 82306; 82607; 82746; 84443 ==

== ENCOUNTER 2022-02-08 14:56 | Outpatient (CLI) | payer MEDICARE, SELFPAY | END 2022-02-08 14:57 | disposition home or self-care (01) | LOC: LAB 14:58 | PROVIDERS: Visit Provider Internal Medicine Cardiovascular Disease | DX: R06.02 Shortness of breath (principal); I42.8 Other cardiomyopathies; Z95.810 Presence of automatic (implantable) cardiac defibrillator; I10 Essential (primary) hypertension | CPT/HCPCS: 36415; 80048; 83880; 99214 ==

== ENCOUNTER → 2022-02-22 13:15 | Outpatient (BNVA) | payer MEDICARE, SELFPAY | PROVIDERS: Visit Provider Nurse Practitioner Family | DX: I42.8 Other cardiomyopathies (principal) | CPT/HCPCS: 99213; 99214 ==

== ENCOUNTER → 2022-03-03 08:56 | Outpatient (BNVA) | payer MEDICARE, SELFPAY | PROVIDERS: Visit Provider Internal Medicine Cardiovascular Disease | DX: Z45.02 Encounter for adjustment and management of automatic implantable cardiac defibrillator (principal) | CPT/HCPCS: 93283 ==

== ENCOUNTER 2022-03-08 10:25 | Outpatient (CLI) | payer MEDICARE, SELFPAY ==
[2022-03-08 11:14] LABS: Anion Gap 13.2 (5-19); Blood Urea Nitrogen 15 mg/dL (8-23); Calcium 9.9 mg/dL (8.5-10.5); Carbon Dioxide 30 mmol/L (22-29); Chloride 100 mmol/L (98-107); Glucose 99 mg/dL (65-115); Osmolality Calculated 289 mOsm/kg (285-295); Potassium 4.2 mmol/L (3.5-5.1); Sodium 139 mmol/L (136-145)
== END 2022-03-08 10:26 | disposition home or self-care (01) ==
PROVIDERS: Nurse Practitioner Family
DX: I42.8 Other cardiomyopathies (principal)
CPT/HCPCS: 36415; 80048

== ENCOUNTER → 2022-06-19 13:46 | Outpatient (BNVA) | payer MEDICARE, SELFPAY | PROVIDERS: Visit Provider Nurse Practitioner Family | DX: R30.0 Dysuria (principal) | CPT/HCPCS: 81003; 87086 ==

== ENCOUNTER 2022-07-05 19:02 | Observation (INO) | payer MEDICARE, SELFPAY ==
[2022-07-05] VITALS (52 sets, daily range): BP systolic 111–164; BP diastolic 68–116; PULSE 61–106; RESP 16–18; TEMP 36.8; O2SAT 95–100; BMI 18.0; BMI 17.2
--- NOTE | 2022-07-05 19:19 | XRR_ITS ---
PROCEDURE INFORMATION: Exam: XR Chest Exam date and time: 07/05/2022 7:35 PM Age: 76 years old Clinical indication: Pain; Chest pressure; Additional info: Cp TECHNIQUE: Imaging protocol: Radiologic exam of the chest. Views: 1 view. COMPARISON: CR XR chest 1V portable [id number] 07/20/2021 4:21 AM FINDINGS: Tubes, catheters and devices: AICD/pacer device noted in the left chest wall. Lungs: There appears to be a prominent pericardial fat pad along the right heart border, similar in appearance to prior exam. No consolidation. Pleural spaces: No pleural effusion. No pneumothorax. Heart/Mediastinum: Mild cardiomegaly. Bones/joints: Visualized osseous structures are intact. XR/XR chest 1V portable [id number] IMPRESSION: No acute findings.
--- NOTE | 2022-07-05 19:19 | ECG_ITS ---
[facility] Test Date: 2022-07-05 Pat Name: Lorie Wong Department: Room: Gender: Female Director Operations Broadcast: : 1945 Requested By: Jessi Oliva Order Number: [id number] Gelacio MD: Aj Beauchamp M.D. Measurements Intervals [place] Rate: 96 P: 42 NV: 186 QRS: -19 QRSD: 89 T: 225 QT: 369 QTc: 467 Interpretive Statements ELECTRONIC VENTRICULAR PACEMAKER Compared to ECG 11/25/2016 16:30:40 Sinus bradycardia no longer present Electronically Signed On 07-06-2022 7:41:00 CDT by Aj Beauchamp M.D. [id number]
--- NOTE | 2022-07-05 19:25 | ED_ITS ---
HPI - Chest Pain General: Chief Complaint: Chest Pain Stated Complaint: CHEST PAIN Time Seen by Provider: 07/05/22 19:08 Source: patient and EMS Mode of arrival: EMS Limitations: no limitations History of Present Illness: 76-year-old female states that roughly 45 minutes ago she had a sharp chest pain in the center of her chest states the pain lasted roughly 2 minutes she had taken 2 nitro she has been pain-free since then she denies any pain currently she does have a pacemaker no history of known coronary artery disease she denies any shortness of breath currently denies any diaphoresis nausea or vomiting. Associated symptoms: Deny abdominal pain, dyspnea, fever(s), nausea or vomiting Review of Systems Const: Denies: fever(s), chills, body aches or change in appetite Eyes: Denies: blurry vision or eye discomfort ENMT: Denies: throat pain or dental pain Card: Reports: chest pain Resp: Denies: dyspnea GI: Denies: abdominal pain, nausea, vomiting or diarrhea : Denies: dysuria Musc: Denies: neck pain or back pain Skin/Breast: Denies: rash Neuro: Denies: headache(s) Psych: Denies: depression Luis Alfredo/Lymph: Denies: easy bruising All/Imm: Denies: urticaria PFSH ED PFSH: Medical History Anxiety Arrhythmia Benign essential HTN Cardiomyopathy History of chronic fatigue Hx of cardiac arrhythmia Hx of cardiomyopathy Hx of chest pain Hx of essential hypertension Hx of viral pericarditis Hypertension Near syncope Surgical History History of breast lump removal History of partial hysterectomy Family History Brother CAD (coronary artery disease) unknown age of onset Mother Dementia Father Diabetes Other Suicide Denies family history of Clotting disorder Chronic kidney disease (CKD) Anesthesia complication Bleeding disorder Lung disease Cancer Stroke Social History Smoking and tobacco status: never smoked Second hand smoke exposure: Yes Alcohol intake: never Lives independently: Yes Household members: significant other Marital status: Life Partner Current gender identity: Female Special yennifer needs: No Agree to transfusion: Yes Physical Exam Const: COMMON NORMALS: no acute distress, patient oriented x3 and healthy appearing HENMT: COMMON NORMALS: normocephalic and atraumatic HEAD & SCALP: normocephalic and atraumatic Eye: COMMON NORMALS: Equal, round and reactive pupils present and EOMs intact bilaterally PUPIL: Yes Equal, round and reactive pupils present Neck/C-Spine: COMMON NORMALS: full ROM and supple Chest: COMMONS NORMALS: normal inspection of the chest and normal palpation of entire chest wall Resp: COMMON NORMALS: normal respiratory effort, No retractions, No use of accessory muscles and clear to auscultation bilaterally AUSCULTATION: clear to auscultation bilaterally Cardio: COMMON NORMALS: regular rate, regular rhythm and No murmurs present (Cardio) RATE: regular rate RHYTHM: regular rhythm GI: COMMON NORMALS: Normal to inspection, nondistended, normoactive bowel sounds present, Soft to palpation, non-tender and no masses PALPATION: Yes Soft to palpation Extremity: COMMON NORMALS: normal to inspection and full ROM Neuro: COMMON NORMALS: patient oriented x3, moves all extremities and no focal motor deficits Psych: COMMON NORMALS: mental status grossly normal, Normal thought process present and cooperative THOUGHT PROCESS: Normal thought process present Skin: COMMON NORMALS: no rashes or lesions noted and no wounds GENERAL SKIN EXAM: no rashes or lesions noted Course Vital Signs: Vital signs: Vital Signs Temperature 98.3 F 07/05/22 19:07 Pulse Rate 66 07/05/22 21:45 Respiratory Rate 18 07/05/22 21:45 Blood Pressure 133/89 07/05/22 21:45 Pulse Oximetry 100 07/05/22 21:45 Oxygen Delivery Me thod 07/05/22 19:30 [facility] - Chest Pain Medical Decision Making Patient presents for chest pain that is atypical in nature she has been pain- free here EKG and troponins are normal patient stable for discharge return if worsening. Lab Data 07/05/22 19:15 07/05/22 19:15 Radiology Impressions Chest X-Ray 07/05/22 19:19 IMPRESSION: No acute findings. Laboratory Results WBC 9.8 10^3/uL (4.0-10.0) 07/05/22 19:15 RBC 4.74 10^6/uL (4.1-5.3) 07/05/22 19:15 Hgb 14.2 g/dL (11.5-15.3) 07/05/22 19:15 Hct 44.4 % (37.0-47.0) 07/05/22 19:15 MCV 93.7 fl (81-99) 07/05/22 19:15 MCH 30.0 pg (28.0-34.0) 07/05/22 19:15 MCHC 32.0 g/dL (30.0-36.0) 07/05/22 19:15 RDW 12.7 % (12.1-15.1) 07/05/22 19:15 Plt Count 243 10^3/cmm (130-400) 07/05/22 19:15 MPV 9.7 fL (7.4-10.4) 07/05/22 19:15 Neut % (Auto) 78.2 % 07/05/22 19:15 Lymph % (Auto) 13.3 % 07/05/22 19:15 [place] % (Auto) 6.0 % 07/05/22 19:15 Eos % (Auto) 1.5 % 07/05/22 19:15 Baso % (Auto) 0.5 % 07/05/22 19:15 Neut # (Auto) 7.63 10^3/uL (1.8-7.7) 07/05/22 19:15 Lymph # (Auto) 1.3 10^3/uL (0.8-4.8) 07/05/22 19:15 [place] # (Auto) 0.6 10^3/uL (0.2-0.9) 07/05/22 19:15 Eos # (Auto) 0.2 10^3/uL (0.0-0.8) 07/05/22 19:15 Baso # (Auto) 0.1 10^3/uL (0.0-0.1) 07/05/22 19:15 Nucleated RBC % (auto) 0 % 07/05/22 19:15 Nucleated RBCs # 0.0 /100WBC 07/05/22 19:15 Sodium 139 mmol/L (136-145) 07/05/22 19:15 Potassium 3.9 mmol/L (3.5-5.1) 07/05/22 19:15 Chloride 101 mmol/L (98-107) 07/05/22 19:15 Carbon Dioxide 26 mmol/L (22-29) 07/05/22 19:15 Anion Gap 15.9 (5-19) 07/05/22 19:15 BUN 15 mg/dL (8-23) 07/05/22 19:15 Creatinine 0.7 mg/dL (0.5-0.9) 07/05/22 19:15 GFR Calculation Not Reportable 07/05/22 19:15 Glucose 111 mg/dL (65-115) 07/05/22 19:15 Calculated Osmolality 290 mOsm/kg (285-295) 07/05/22 19:15 Calcium 9.1 mg/dL (8.5-10.5) 07/05/22 19:15 Total Bilirubin 0.8 mg/dL (0.15-1.2) 07/05/22 19:15 AST 18 U/L (0-32) 07/05/22 19:15 ALT 12 U/L (0-33) 07/05/22 19:15 Alkaline Phosphatase 69 U/L (35-105) 07/05/22 19:15 Troponin T Baseline 22 ng/L (0-10) H 07/05/22 19:15 Troponin T 120 Minute 19.81 ng/L (0-10) H 07/05/22 21:14 Delta Troponin T -2.19 ABS# (0-10) L 07/05/22 21:14 Total Protein 6.9 g/dL (6.6-8.7) 07/05/22 19:15 Albumin 4.3 g/dL (3.5-5.2) 07/05/22 19:15 Globulin 2.6 g/dL (1.3-4.6) 07/05/22 19:15 Lipase 25 U/L (13-60) 07/05/22 19:15 EKG Data EKG 1: I personally reviewed and interpreted this EKG as follows: EKG interpretation date: 07/05/22 EKG interpretation time: 19:12 Interpretation: paced hr [address] or t wave abnormalities qrs 89 qtc 422 EKG 2: I personally reviewed and interpreted this EKG as follows: EKG interpretation date: 07/05/22 EKG interpretation time: 21:39 Interpretation: paced hr [address] or t wave abnormalities qrs 96 qtc 454 Discharge Plan Discharge Patient Disposition: Home Clinical Impression: Chest pain Condition: Stable Prescriptions: No Action aspirin [Adult Aspirin Regimen] 81 mg tablet,delayed release (DR/EC) 81 mg PO DAILY nitroglycerin 0.4 mg tablet, sublingual 0.4 mg SUBLINGUAL Q5M PRN (Reason: Chest Pain) Qty: 25 6RF Rx Instructions: do not exceed 3 doses per episode cephalexin 500 mg capsule 500 mg PO TID 10 Days Qty: 30 0RF hydrocortisone [Proctozone-HC] 2.5 % cream with perineal applicator 1 applic AR DAILY PRN (Reason: pain) Qty: 30 1RF Entresto 24-26 mg tablet 2 tab PO BID Qty: 120 1RF Rx Instructions: RXBIN: [id number] RXPCN: [id number] RXFRP: [id number] RXID: [id number] Discharge Orders: Discharge ED (Routine); Ordered 07/05/22 Ordered By: Jessi Oliva Referrals: William Arredondo MD [Primary Care Provider] - 1-3 days Discharge Diet: Advance as tolerated Discharge Activity: Resume usual activity Patient Instructions: Chest Pain (ED) Coding Level of Care Code ED Machinist 2Nd Shift for Radha Vera
[2022-07-05 19:44] LABS: Basophils # 0.1 10^3/uL (0.0-0.1); Basophils % 0.5 %; Eosinophils # 0.2 10^3/uL (0.0-0.8); Eosinophils % 1.5 %; Hematocrit 44.4 % (37.0-47.0); Hemoglobin 14.2 g/dL (11.5-15.3); Lymphocytes # 1.3 10^3/uL (0.8-4.8); Lymphocytes % 13.3 %; Mean Corpuscular Volume 93.7 fl (81-99); Mean Platelet Volume 9.7 fL (7.4-10.4); Monocytes # 0.6 10^3/uL (0.2-0.9); Neutrophils # 7.63 10^3/uL (1.8-7.7); Neutrophils % 78.2 %; Nucleated Red Blood Cells % 0 %; Platelet Count 243 10^3/cmm (130-400); Red Blood Count 4.74 10^6/uL (4.1-5.3); Red Cell Distribution Width 12.7 % (12.1-15.1); White Blood Count 9.8 10^3/uL (4.0-10.0)
[2022-07-05 20:04] LABS: Troponin(5th) Baseline 22 ng/L (0-10)
[2022-07-05 20:06] LABS: Alanine Aminotransferase 12 U/L (0-33); Albumin Level 4.3 g/dL (3.5-5.2); Alkaline Phosphatase 69 U/L (35-105); Anion Gap 15.9 (5-19); Aspartate Amino Transferase 18 U/L (0-32); Blood Urea Nitrogen 15 mg/dL (8-23); Calcium 9.1 mg/dL (8.5-10.5); Carbon Dioxide 26 mmol/L (22-29); Chloride 101 mmol/L (98-107); Globulin 2.6 g/dL (1.3-4.6); Glucose 111 mg/dL (65-115); Lipase 25 U/L (13-60); Osmolality Calculated 290 mOsm/kg (285-295); Potassium 3.9 mmol/L (3.5-5.1); Sodium 139 mmol/L (136-145); Total Bilirubin 0.8 mg/dL (0.15-1.2); Total Protein 6.9 g/dL (6.6-8.7)
[2022-07-05 21:39] LABS: Troponin 5 2HR 19.81 ng/L (0-10)
--- NOTE | 2022-07-05 21:39 | ECG_ITS ---
[facility] Test Date: 2022-07-05 Pat Name: Lorie Wong Department: Room: Gender: Female Director Dermatology: : 1945 Requested By: Jessi Oliva Order Number: [id number] Gelacio MD: Aj Beauchamp M.D. Measurements Intervals [place] Rate: 73 P: 40 MO: 201 QRS: -27 QRSD: 96 T: 223 QT: 428 QTc: 473 Interpretive Statements ELECTRONIC VENTRICULAR PACEMAKER Compared to ECG 07/05/2022 19:12:33 No significant changes Electronically Signed On 07-06-2022 7:41:50 CDT by Aj Beauchamp M.D. [id number]
[2022-07-05 21:41] LABS: Troponin 5 2HR Delta -2.19 ABS# (0-10)
--- NOTE | 2022-07-05 22:32 | PC.NURSE ---
patient having multiple runs of V-tach. Patient states that she is not having pain at this time and does not feel any different than she did before. MD notified. EKG done, strips printed out and placed in chart, and Pacemaker interrogated. See MAR for further medications given during this time.
--- NOTE | 2022-07-05 22:55 | P.HP_ITS ---
Providers/Chief Complaint Admitting Physician: Williams Dawson Primary Care Provider: William Arredondo MD Chief Complaint: CHEST PAIN History of Present Illness Pleasant 76-year-old lady mildly hard of hearing, with history of cardiomyopathy with low EF, arrhythmia, ICD, secondhand smoke exposure at home from her partner with whom she has been for 7 years, came to ED for evaluation due to episode of chest pain, center of the chest, lasting roughly 2 minutes, took 2 nitro. Pain resolved without recurrence. Currently she is having mild headache. She reports also having some mildly productive cough. Several weeks ago she had some swelling in her lower extremities she states after a kidney infection which had since gone away. In ER she is noted to have several runs of V. tach which resolved spontaneously after about 10 seconds. She appears to be asymptomatic during it episodes. These were confirmed with cardiology. She is started on amiodarone drip. Review of Systems Const: Denies: fever(s), chills, body aches or malaise ENMT: Denies: throat pain or ear or mastoid pain Card: Reports: chest pain; Denies: edema (Few weeks back, now resolved.), pre-syncope or dyspnea on exertion Resp: Reports: productive cough; Denies: dyspnea, change in phlegm color or hemoptysis GI: Denies: abdominal pain, nausea, vomiting, diarrhea, constipation, hematochezia or melena : Denies: flank pain, urinary frequency or hematuria Musc: Denies: back pain, joint swelling or joint redness Skin/Breast: Denies: rash or new lesions Neuro: Denies: headache(s), numbness in extremities, weakness in extremities, dizziness, confusion or seizure-like activity Medications/Allergies Home Medications Medication Instructions Recorded Confirmed Last Taken Type aspirin 81 mg tablet,delayed 81 mg PO DAILY 02/08/22 06/19/22 Unknown History release (Adult Aspirin Regimen) nitroglycerin 0.4 mg sublingual 0.4 mg sublingual Q5M PRN Chest 02/08/22 06/19/22 Unknown Rx tablet Pain #25 tabs sacubitril 24 mg-valsartan 26 mg 2 tab PO BID #120 tabs 05/08/22 06/19/22 Unknown Rx tablet (Entresto) cephalexin 500 mg capsule 500 mg PO TID 10 days #30 caps 06/19/22 06/19/22 Unknown Rx hydrocortisone 2.5 % topical cream 1 applic HI DAILY PRN pain #30 06/19/22 06/19/22 Unknown Rx with perineal applicator grams (Proctozone-HC) Allergies Allergy/AdvReac Type Severity Reaction Status Date / Time No Known Allergies Allergy Verified 07/05/22 19:13 PFSH Acute PFSH: Medical History Anxiety Arrhythmia Benign essential HTN Cardiomyopathy Heart failure, left, with LVEF <=30% History of chronic fatigue Hx of cardiac arrhythmia Hx of cardiomyopathy Hx of chest pain Hx of essential hypertension Hx of viral pericarditis Hypertension Near syncope Surgical History History of breast lump removal History of partial hysterectomy Family History Brother CAD (coronary artery disease) unknown age of onset Mother Dementia Father Diabetes Other Suicide Denies family history of Clotting disorder Chronic kidney disease (CKD) Anesthesia complication Bleeding disorder Lung disease Cancer Stroke Social History Smoking and tobacco status: never smoked Second hand smoke exposure: Yes Alcohol intake: never Lives independently: Yes Household members: significant other Marital status: Life Partner Current gender identity: Female Special yennifer needs: No Agree to transfusion: Yes Vitals/I&O/Wt Last Vital Signs Temp 98.3 F 07/05/22 19:07 Pulse 82 07/05/22 22:30 Resp 18 07/05/22 21:45 BP 125/74 07/05/22 22:30 Pulse Ox 100 07/05/22 22:30 O2 Del Method 07/05/22 19:30 07/05/22 07/05/22 07/05/22 06:59 14:59 22:59 Intake Total 103 / 103 Balance 103 / 103 Weight last 48 hrs Weight 52.163 kg Physical Exam Const: COMMON NORMALS: patient oriented x3 and alert GENERAL APPEARANCE: cooperative ORIENTATION/CONSCIOUSNESS: Yes awake HENMT: COMMON NORMALS: oropharynx normal Neck/C-Spine: COMMON NORMALS: no JVD Resp: COMMON NORMALS: normal respiratory effort and clear to auscultation bilaterally AUSCULTATION: clear to auscultation bilaterally Cardio: COMMON NORMALS: no JVD, regular rhythm, S1 normal heart sound present, S2 normal heart sound present and No murmurs present (Cardio) RHYTHM: regular rhythm HEART SOUNDS: S1 normal heart sound present and S2 normal heart sound present GI: COMMON NORMALS: Normal to inspection, nondistended, normoactive bowel sounds present, Soft to palpation and non-tender PALPATION: Yes Soft to palpation Extremity: COMMON NORMALS: no joint enlargement and no pedal edema Neuro: COMMON NORMALS: patient oriented x3 and moves all extremities SENSORIUM/ORIENTATION: Yes alert Skin: COMMON NORMALS: no rashes or lesions noted GENERAL SKIN EXAM: no rashes or lesions noted Data 07/05/22 19:15 07/05/22 19:15 A&P Assessment and plan (1) V-tach: Episodes of V. tach lasting about 10 seconds, resolving spontaneously. Appears to be asymptomatic. ICD just interrogated. Started on amiodarone drip. Continue. Cardiac monitoring with infusion. Multiple episodes so far, so far no ICD discharge. Will place pads on her as well. Complete work-up for ischemia as below. Potassium 3.9, will give 20 mill equivalents by mouth. Check magnesium, TSH. TTE. Cardiology consultation. (2) Chest pain: Transient episodes of chest pain at home, central, some radiation. Lasted about 2 minutes. Resolved with 2 times nitroglycerin. Currently with mild headache. No chest pain. Mild troponin elevation 22 at baseline, 19.81 at 2 hours. History of cardiomyopathy with low EF, hypertension, secondhand smoke exposure. Family history of CAD. Complete troponin EKG series. Continue aspirin. Monitor on telemetry. TTE Cardiology consultation for consideration of further evaluation. (3) Cough: Cough productive of small amount of sputum. Possible mild bronchitis. Chest x- ray reviewed, no acute findings. Reports some bilateral lower extremity swelling several weeks ago when she was dealing with a UTI. This has since resolved. Check D-dimer, discussed with her consideration of PE. If D-dimer abnormal we discussed with her consideration of CTA chest. Plan Anxiety HTN Secondhand smoke exposure Requested home medications to be entered, please reconcile once available. Discussed with ER physician, ER documentation reviewed. Attestations Medical Necessity Statement*: Place in observation for additional assessment management of episodes of V. tach, episode of chest pain in a lady with history of cardiomyopathy with low EF, at risk of life-threatening arrhythmia. Diagnoses V-tach I47.20 Chest pain R07.9 Cough R05.9
[2022-07-05] MEDS: potassium chloride ER 20 mEq Tablet PO (23:03)
[2022-07-05 23:04] LABS: Magnesium 2.3 mg/dL (1.7-2.3); Thyroid Stimulating Hormone 2.04 uIU/mL (0.27-4.20)
[2022-07-05 23:12] LABS: D Dimer 0.94 ug/mIFEU (0-0.59)
[2022-07-06] VITALS (83 sets, daily range): BP systolic 82–162; BP diastolic 47–116; PULSE 59–113; RESP 13–29; TEMP 36.4–36.5; O2SAT 93–100
--- NOTE | 2022-07-06 00:40 | USCV_ITS ---
Lorie Wong Age: 76 Gender: F : 1945 Exam Date: 07/06/2022 01:09 Ordering Phys: Williams Dawson MD Technologist: JUSTO Exam Location: [facility] [place] Indication: assess for DVT. No history of DVT per patient. HISTORY: assess for DVT. No history of DVT per patient. PROCEDURES: Venous duplex imaging was performed in bilateral lower extremities. The following venous structures were evaluated: common femoral vein, profunda vein, proximal portion of the greater saphenous vein, superficial femoral vein, and the popliteal vein. In addition, the posterior tibial veins were evaluated. Serial compression, augmentation maneuvers, and spectral Doppler flow evaluation were performed, which were normal. Bilaterally, the common femoral, superficial femoral, profunda femoral, popliteal, posterior tibial, and greater saphenous veins were identified and interrogated in the standard fashion. These veins were found to be easily compressible with spontaneous blood flow. No evidence of thrombus noted. CONCLUSIONS No evidence of right lower extremity DVT. No evidence of left lower extremity DVT. Frankie Osborn MD (Electronically Signed) Final Date: 06 July 2022 10:44 S
--- NOTE | 2022-07-06 00:40 | USCV_ITS ---
Judith Lorie Age: 76 Gender: F : 1945 Exam Date: 07/06/2022 01:33 Ordering Phys: Williams Dawson MD Technologist: JUSTO [place] [facility] [place]ication: cardiomyopathy, arrythmias, CP, pacer 2021. BP: 155 / 100 HR: 75 Rhythm: Sinus with occasional strings of atrial fibrillation Technical Quality: Adequate MEASUREMENTS (Male / Female) Normal Values 2D ECHO LV Diastolic Diameter PLAX 3.7 cm 4.2 - 5.9 / 3.9 - 5.3 cm LV Systolic Diameter PLAX 3.7 cm IVS Diastolic Thickness 1.3 cm 0.6 - 1.0 / 0.6 - 0.9 cm IVS Systolic Thickness 1.3 cm LVPW Diastolic Thickness 1.4 cm 0.6 - 1.0 / 0.6 - 0.9 cm LVPW Systolic Thickness 1.5 cm LVOT Diameter 1.8 cm LV Ejection Fraction 2D Teich 15.2 % LV Ejection Fraction MOD 2C 33.9 % LV Ejection Fraction 2C AL 36.5 % LA Diameter 4.2 cm LA Width 4.2 cm LA Height 5.8 cm RA Width 3.3 cm RA Height 5.2 cm Aorta at Sinotubular Diameter 2.6 cm IVC Diameter 1.3 cm M-MODE Aortic Annulus Diameter 2.7 cm LA Ao Ratio MM 1.6 MV E Point Septal Separation 1.5 cm DOPPLER AV Peak Velocity 108.0 cm/s LVOT Peak Velocity 52.0 cm/s AV Area Cont Eq vti 1.6 cm squared AV Area Cont Eq pk 1.2 cm squared MV Peak Velocity 103.0 cm/s MV Area PHT 4.1 cm squared Mitral E to A Ratio 0.5 MV E' Velocity 25.5 cm/s Mitral E to MV E' Ratio 9.9 Mitral E to LV E' Lateral Ratio 8.4 Mitral E to LV E' Septal Ratio 12.2 TR Peak Velocity 372.3 cm/s TR Peak Gradient 55.5 mmHg TV Peak E Velocity 35.0 cm/s Right Atrial Pressure 10.0 mmHg Pulmonary Artery Systolic Pressu 65.5 mmHg PV Peak Velocity 86.0 cm/s RV Acceleration Time 0.1 s RV Ejection Time 0.4 s RV AcT/ET 0.3 FINDINGS Left Ventricle Diffuse hypokinesia of the left ventricle with an ejection fraction of 36%. Mildly dilated LV cavity Right Ventricle Normal right ventricular size and systolic function. Right Atrium Mildly increased right atrial size. Left Atrium Mildly increased left atrial size. Mitral Valve Moderate mitral valve regurgitation. Aortic Valve Thickened aortic valve. Tricuspid Valve Moderate tricuspid valve regurgitation. Moderate pulmonary hypertension with an estimated pulmonary artery peak systolic pressure of 66 mmHg Pulmonic Valve Mild pulmonary valve regurgitation. Pericardium No pericardial effusion. Aorta Normal aortic annulus size. IVC Normal inferior vena cava. CONCLUSIONS Diffuse hypokinesia of the left ventricle with an ejection fraction of 36%. Mildly dilated LV cavity. Moderate tricuspid valve regurgitation. Moderate pulmonary hypertension with an estimated pulmonary artery peak systolic pressure of 66 mmHg. Mild biatrial mild biatrial enlargement Thickened aortic valve. Mild pulmonary valve regurgitation. Compared to the study from 06/01/2021, there may be a slight improvement in the LV ejection fraction Dr Laura Valentine MD [facility] (Electronically Signed) Final Date: 07 July 2022 13:14 S
[2022-07-06 01:14] LABS: Basophils # 0.1 10^3/uL (0.0-0.1); Basophils % 0.6 %; Eosinophils # 0.1 10^3/uL (0.0-0.8); Eosinophils % 1.7 %; Hematocrit 41.7 % (37.0-47.0); Hemoglobin 13.3 g/dL (11.5-15.3); Lymphocytes # 1.2 10^3/uL (0.8-4.8); Lymphocytes % 14.2 %; Mean Corpuscular HGB Conc 31.9 g/dL (30.0-36.0); Mean Corpuscular Volume 93.9 fl (81-99); Mean Platelet Volume 9.8 fL (7.4-10.4); Monocytes # 0.5 10^3/uL (0.2-0.9); Monocytes % 6.2 %; Neutrophils # 6.29 10^3/uL (1.8-7.7); Neutrophils % 77.1 %; Nucleated Red Blood Cells % 0 %; Platelet Count 214 10^3/cmm (130-400); Red Blood Count 4.44 10^6/uL (4.1-5.3); Red Cell Distribution Width 12.7 % (12.1-15.1); White Blood Count 8.2 10^3/uL (4.0-10.0)
--- NOTE | 2022-07-06 01:19 | ECG_ITS ---
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 Measurements Intervals [place] Rate: 60 P: -66 W[place]: 177 QRS: -88 QRSD: 166 T: 76 QT: 515 QTc: 515 Interpretive Statements ELECTRONIC ATRIAL PACEMAKER ELECTRONIC VENTRICULAR PACEMAKER ABNORMAL RHYTHM ECG Compared to ECG 07/05/2022 21:39:21 No significant changes Electronically Signed On 07-06-2022 22:56:11 CDT by Laura Valentine M.D. [id number]
[2022-07-06 01:31] LABS: D Dimer 0.64 ug/mIFEU (0-0.59)
[2022-07-06 01:38] LABS: Anion Gap 12.9 (5-19); Blood Urea Nitrogen 14 mg/dL (8-23); Carbon Dioxide 27 mmol/L (22-29); Chloride 103 mmol/L (98-107); Glucose 104 mg/dL (65-115); Osmolality Calculated 289 mOsm/kg (285-295); Potassium 3.9 mmol/L (3.5-5.1); Sodium 139 mmol/L (136-145)
[2022-07-06 01:40] LABS: Troponin 5 6HR 22.63 ng/L (0-10)
[2022-07-06 01:43] LABS: Troponin 5 6HR Delta 0.63 ng/L (0-12)
[2022-07-06] MEDS: enoxaparin 40 mg/0.4 mL Syringe SUBCUT ×2 (01:44→23:49)
--- NOTE | 2022-07-06 08:10 | PM.CONSULT ---
Providers/Reason For Consult Consulting Physician/Specialty*: MONIQUE Valentine MD/cardiology Reason for Consult*: MONIQUE Valentine MD/cardiology Requesting Physician: Dr. Dawson Attending Physician: Williams Dawson Primary Care Provider: William Arredondo MD History of Present Illness History of Present Illness Lorie oWng is a 76 year old female with a history of cardiomyopathy, high blood pressure, dyslipidemia, is admitted to the hospital through the emergency room, where she presented with complaints of chest pain. She was found to have slightly elevated troponin T. She was found to have episodes of nonsustained ventricular tachycardia on the monitor. Cardiology consult is requested for further cardiac evaluation and recommendations. This patient is known to me from previous hospital admissions and office visits. She has a history of cardiomyopathy for many years. She also has been having episodes of chest pain intermittently. She had a Myocardial perfusion imaging in June of last year. She was found to have areas of fixed and reversible defects. The features very suggestive of myocardial scarring mainly in the distribution of the left circumflex artery with a small areas of ella-infarction ischemia. Patient also was found to have second-degree heart block and bradycardia. Her LV ejection fraction was 30 to 35% by echocardiogram. So the plan at that time was to go ahead with an ICD with a dual-chamber pacing and consider cardiac catheterization, if she continues to have chest pain. She has no documented history for ventricular tachycardia, prior to this event. According the patient, she was not feeling well throughout yesterday. There was evening, she had an episode of chest pain in the mid substernal region, radiating across the chest. The intensity of the pain was moderate. She had associated shortness of breath. She also might have had some nausea. No other associated symptoms or radiation of pain. She took a total of 2 sublingual nitroglycerin. The pain subsided in 15 to 20 minutes. She came to the hospital for further evaluation and management. The cardiac work-up in the emergency room was unremarkable except for slightly elevated baseline troponin T. She was getting ready to be discharged. Then she was found to be developing episodes of ventricular tachycardia on the monitor. For this reason, she was admitted for further evaluation. Patient has a history of hypertension and dyslipidemia. She never had a cardiac catheterizations in the past. She has been having episodes of chest pain off and on for the last few years. She has a history of cardiac tamponade from possible viral pericarditis many years ago. She has been taking Entresto for the cardiomyopathy and congestive heart failure. Apparently she could not take the Entresto 2 tablets twice daily. So she was cutting it back to the 1 tablet twice daily lately. Review of Systems Narrative: CONSTITUTIONAL: No fever or chills. Has been having some amount of dizziness and weakness lately. No fever or chills. EYES: No blurring of vision or other visual disturbances lately. ENT: No hoarseness of voice, auditory disturbances or sore throat. CARDIOVASCULAR: As mentioned above. RESPIRATORY: No significant cough. GASTROINTESTINAL: No hematemesis or melena. GENITOURINARY: No dysuria or hematuria. INTEGUMENTARY: No skin rashes or history of skin cancer. NEURO: No transient ischemic attacks or amaurosis. PSYCHIATRIC: No history of psychosis or major depression. HEMATOLOGIC: No bleeding disorders or significant anemia. ENDOCRINE: No history of polyuria or polydipsia. MUSCULOSKELETAL: No recent joint pain or swelling. ALLERGY/IMMUNOLOGY: As mentioned above. Medications/Allergies Home Medications Medication Instructions Recorded Confirmed Last Taken Type aspirin 81 mg tablet,delayed 81 mg PO QAM 02/08/22 07/06/22 Unknown History release (Adult Aspirin Regimen) nitroglycerin 0.4 mg sublingual 0.4 mg sublingual Q5M PRN Chest 02/08/22 07/06/22 Unknown Rx tablet Pain #25 tabs hydrocortisone 2.5 % topical cream 1 applic [place] DAILY PRN pain #30 06/19/22 07/06/22 Unknown Rx with perineal applicator grams (Proctozone-HC) sacubitril 24 mg-valsartan 26 mg 1 tab PO BID 07/06/22 07/06/22 Unknown History tablet (Entresto) Allergies Allergy/AdvReac Type Severity Reaction Status Date / Time No Known Allergies Allergy Verified 07/06/22 08:13 Current Medications Generic Name Dose Route Start Last Admin Trade Name Freq PRN Reason Stop Dose Admin Enoxaparin Sodium 40 mg 07/06/22 00:45 07/06/22 01:44 Enoxaparin 40 Mg/0.4 Ml Syringe SUBCUT 40 mg Q24H ALMA Administration Amiodarone HCl 900 mg/ 518 mls @ 0 mls/hr 07/05/22 22:15 07/05/22 22:42 Dextrose/ IV Miscellaneous IV 1 mg/min Supplies .Q0M ALMA 34.53 mls/hr Administration Protocol Per Protocol PFSH Acute PFSH: Medical History Anxiety Arrhythmia Benign essential HTN Cardiomyopathy Heart failure, left, with LVEF <=30% History of chronic fatigue Hx of cardiac arrhythmia Hx of cardiomyopathy Hx of chest pain Hx of essential hypertension Hx of viral pericarditis Hypertension Near syncope Surgical History History of breast lump removal History of partial hysterectomy Family History Brother CAD (coronary artery disease) unknown age of onset Mother Dementia Father Diabetes Other Suicide Denies family history of Clotting disorder Chronic kidney disease (CKD) Anesthesia complication Bleeding disorder Lung disease Cancer Stroke Social History Smoking and tobacco status: never smoked Second hand smoke exposure: Yes Alcohol intake: never Lives independently: Yes Household members: significant other Marital status: Life Partner Current gender identity: Female Special yennifer needs: No Agree to transfusion: Yes Vitals/I&O/Wt Last Vital Signs Temp 97.7 F 07/06/22 00:00 Pulse 113 H 07/06/22 08:00 Resp 20 H 07/06/22 08:00 BP 147/77 07/06/22 08:00 Pulse Ox 99 07/06/22 08:00 O2 Del Method 07/06/22 00:00 07/05/22 07/06/22 07/06/22 22:59 06:59 14:59 Intake Total 103 / 103 110 / 213 Balance 103 / 103 110 / 213 Weight last 48 hrs Weight 110 lb 4.8 oz Weight 115 lb Physical Exam Narrative: GENERAL: The patient is alert and oriented times three. Not in any acute distress. Chronically ill looking and emaciated HEENT: No significant pallor, icterus or lymphadenopathy.Oral cavity: There are no mucous membrane lesions. NECK: Trachea appears to be central. No masses noted. No JVD or thyromegaly appreciated. RESPIRATORY: Chest is symmetrical. No intercostals muscle retraction or any accessory muscle activation. There is no chest wall tenderness. Breath sounds are heard bilaterally. No rales or rhonchi heard. No evidence of any consolidation. BREASTS: Deferred. HEART: The heart sounds are normal. No S3 or S4. Short systolic murmur in the lower sternal border. No diastolic murmurs.. No pericardial rub ABDOMEN: No vessel pulsations or distention. No tenderness. No organomegaly appreciated. Bowel sounds are normally heard. : Deferred. RECTAL: Deferred. LYMPHATIC: No lymphadenopathy noted in the neck. EXTREMITIES: No edema or cyanosis. No clubbing. MUSCULOSKELETAL: No acute joint deformities or swelling SKIN: There are no significant rashes or ecchymosis NEUROPSYCHIATRIC: The patient is alert and oriented x3. Appears to be in a good mood. No tremors or rigidity noted. Data 07/06/22 00:56 07/06/22 00:56 Other Labs: Current Medications Laboratory Last Values WBC 8.2 10^3/uL (4.0-10.0) 07/06/22 00:56 RBC 4.44 10^6/uL (4.1-5.3) 07/06/22 00:56 Hgb 13.3 g/dL (11.5-15.3) 07/06/22 00:56 Hct 41.7 % (37.0-47.0) 07/06/22 00:56 MCV 93.9 fl (81-99) 07/06/22 00:56 MCH 30.0 pg (28.0-34.0) 07/06/22 00:56 MCHC 31.9 g/dL (30.0-36.0) 07/06/22 00:56 RDW 12.7 % (12.1-15.1) 07/06/22 00:56 Plt Count 214 10^3/cmm (130-400) 07/06/22 00:56 MPV 9.8 fL (7.4-10.4) 07/06/22 00:56 Neut % (Auto) 77.1 % 07/06/22 00:56 Lymph % (Auto) 14.2 % 07/06/22 00:56 Petroleum % (Auto) 6.2 % 07/06/22 00:56 Eos % (Auto) 1.7 % 07/06/22 00:56 Baso % (Auto) 0.6 % 07/06/22 00:56 Neut # (Auto) 6.29 10^3/uL (1.8-7.7) 07/06/22 00:56 Lymph # (Auto) 1.2 10^3/uL (0.8-4.8) 07/06/22 00:56 Petroleum # (Auto) 0.5 10^3/uL (0.2-0.9) 07/06/22 00:56 Eos # (Auto) 0.1 10^3/uL (0.0-0.8) 07/06/22 00:56 Baso # (Auto) 0.1 10^3/uL (0.0-0.1) 07/06/22 00:56 Nucleated RBC % (auto) 0 % 07/06/22 00:56 Nucleated RBCs # 0.0 /100WBC 07/06/22 00:56 D-Dimer 0.64 ug/mIFEU (0-0.59) H 07/06/22 00:56 Sodium 139 mmol/L (136-145) 07/06/22 00:56 Potassium 3.9 mmol/L (3.5-5.1) 07/06/22 00:56 Chloride 103 mmol/L (98-107) 07/06/22 00:56 Carbon Dioxide 27 mmol/L (22-29) 07/06/22 00:56 Anion Gap 12.9 (5-19) 07/06/22 00:56 BUN 14 mg/dL (8-23) 07/06/22 00:56 Creatinine 0.7 mg/dL (0.5-0.9) 07/06/22 00:56 GFR Calculation Not Reportable 07/06/22 00:56 Glucose 104 mg/dL (65-115) 07/06/22 00:56 Calculated Osmolality 289 mOsm/kg (285-295) 07/06/22 00:56 Calcium 9.0 mg/dL (8.5-10.5) 07/06/22 00:56 Magnesium 2.3 mg/dL (1.7-2.3) 07/05/22 21:14 Total Bilirubin 0.8 mg/dL (0.15-1.2) 07/05/22 19:15 AST 18 U/L (0-32) 07/05/22 19:15 ALT 12 U/L (0-33) 07/05/22 19:15 Alkaline Phosphatase 69 U/L (35-105) 07/05/22 19:15 Troponin T Baseline 22 ng/L (0-10) H 07/05/22 19:15 Troponin T 120 Minute 19.81 ng/L (0-10) H 07/05/22 21:14 Delta Troponin T -2.19 ABS# (0-10) L 07/05/22 21:14 Troponin T Hi Sens 6Hr 22.63 ng/L (0-10) H 07/06/22 00:56 Troponin T Hi Sens 6Hr Delta 0.63 ng/L (0-12) 07/06/22 00:56 Total Protein 6.9 g/dL (6.6-8.7) 07/05/22 19:15 Albumin 4.3 g/dL (3.5-5.2) 07/05/22 19:15 Globulin 2.6 g/dL (1.3-4.6) 07/05/22 19:15 Lipase 25 U/L (13-60) 07/05/22 19:15 TSH 2.04 uIU/mL (0.27-4.20) 07/05/22 21:14 MPI: My impression: 1.? Myocardial perfusion imaging revealing moderate area of persistent ?decreased tracer uptake in the inferolateral, anteroseptal and some apical ?segments with small areas of reversibility in the basal inferolateral and LV ?apex suggesting myocardial scarring predominantly in the distribution of the ?left circumflex artery with? small areas of ella-infarction ischemia. ?2.? Slightly diminished left ventricular? ejection fraction of 40%. ?3.? LV wall motion analysis revealing mild diffuse hypokinesia of the LV apex. ?4.? Mildly dilated LV cavity with? an end-systolic volume of 67 mL ?No similar previous studiesare? available for comparison. Echo: My impression: Echocardiogram on 06/01/2021 LV systolic function is moderate to severely reduced with EF of ?30-35% ?Moderate to severe global hypokinesis is seen ?Grade 1 diastolic dysfunction ?Mild mitral regurgitation ?Mild to moderate tricuspid regurgitation.? RVSP is 55 to 60 ?mmHg.? This is consistent with mild to moderate pulmonary ?hypertension ?Compared to prior echocardiogram from 01/09/2018, LV systolic ?function has decreased further. EKG 1: My Interpretation: 100% AV paced rhythm. Heart rate of 60 bpm A&P Assessment and plan (1) Chest pain: Patient chest pain, responding to sublingual nitro, may assist underlying coronary ischemia. She was found to have small areas of ischemia by the perfusion scan a year ago. She also had significant drop in the LV ejection fraction from previous echocardiogram at that time. She has new onset of ventricular tachycardia which also may suggest underlying ischemia. For further evaluation of her coronary status, cardiac catheterization would be appropriate. Risk and benefits of the procedure were explained to the patient. The risk of bleeding, hematoma, vascular injury, myocardial infarction, myocardial perforation, malignant cardiac arrhythmias ,CVA, renal failure and other concomitant complications were explained in detail. Patient understood this well and consented to proceed. We may go ahead and schedule this procedure as early as possible. (2) Ventricular tachycardia: Patient was found to have episodes of nonsustained ventricular tachycardia on the monitor. Patient was found to have multiple episodes of nonsustained ventricular tachycardia on the monitor. The heart rate was around 142 bpm. (3) History of chronic fatigue: This has been chronic and stable (4) Benign essential HTN: Currently the blood pressure is of stage II. We will optimize the antihypertensive medication. (5) Anxiety: Patient has a history of chronic anxiety disorder. (6) S/P implantation of automatic cardioverter/defibrillator (AICD): The ICD function appropriate. We will continue on the current management. AICD interrogation report was reviewed. No V. tach was detected on the device telemetry. Plan Based on the results of the above tests and the patient's clinical progress, further recommendations will be made. Thank you for the opportunity to evaluate this patient and make these recommendations Consult Attestations Medical Necessity Statement: Patient requires continued hospital stay for close monitoring and further management Coding Level of Care Code 64757 Diagnoses Chest pain R07.9 Ventricular tachycardia I47.20 History of chronic fatigue Z87.898 Benign essential HTN I10 Anxiety F41.9 S/P implantation of automatic cardioverter/defibrillator (AICD) Z95.810
--- NOTE | 2022-07-06 08:16 | PC.PHAR ---
pt states she takes care of her own medications-pt states she is only taking entresto 24-26mg 1 tab bid rx filled for 2 tabs bid 05/08/22 30d/s-pt states she had a rx for trazodone 50mg hs filled 05/02/22 30d/s pt states she is no longer taking the trazodone-pt states she finished her cephalexin 500mg tid on 06/30/22 rx was filled 06/19/22 10d/s-pt states she no longer has an albuterol inhaler ext med history shows last filled 10/06/21
[2022-07-06] MEDS: aspirin 81 mg EC Tablet PO (08:21)
--- NOTE | 2022-07-06 09:15 | W.PM.OPSUD ---
Surgery/Procedure H&P Update DATE OF PROCEDURE: July 06, 2022 DATE H&P PERFORMED: 07/06/22 H&P UPDATE INFORMATION: I have reviewed H&P completed within last 30 days, I have examined patient prior to procedure and No changes to prior documentation PREOP DIAGNOSIS: suspected ASHD PRIMARY INDICATION FOR PROCEDURE: Chest pain, ventricular tachycardia, cardiomyopathy PATIENT REASSESSED PRIOR TO SEDATION, WITH NO CHANGE NOTED: Yes PHYSICAL EXAM: alert, oriented x 3, clear to auscultation bilaterally, regular rate & rhythm and operative site marked AIRWAY EVAL/ANESTHESIA PLAN: normal airway, see other exam findings, ASA III, Monitored Anesthesia, Local Anesthesia, Risks, benefits & alternatives of sedation and/or procedure discussed and Patient agrees to continue as planned
--- NOTE | 2022-07-06 09:24 | XACV_ITS ---
Exam Room: [facility] Ht: 170 cm Wt: 50 kg BSA: 1.52 m2 Gender: Female : 1945 Any Known Allergies: No known allergies Exam Priority: Routine Procedure(s): Procedure Description: Diagnostic procedure Procedure Description: Left Heart Catheterization Procedure Description: Coronary Angiography Serge FUNK; Diagnostic Cath Status: Urgent Diagnostic Findings * The left main is a medium caliber vessel with no significant stenotic lesions. * The left anterior descending artery is a medium caliber vessel which appears to wrap around the LV apex. Right at the origin of the first diagonal branch, there was a 30% stenosis. The ostium of the first diagonal also was found to have around 50% stenosis. No other significant stenotic lesions were noted. * The left circumflex artery is a large dominant vessel with no significant stenotic lesions. * There is an intermediate artery, appears to be high diagonal with no significant stenotic lesions. * The right coronary artery is a small caliber nondominant vessel with no significant stenotic lesions. Conclusions 1. 76-year-old white female with a history of cardiomyopathy, presenting with complaints of recurrent episodes of chest pain. She had a Myocardial perfusion imaging few months ago which was found to be abnormal, showing some areas of ischemia in the distribution of the left circumflex artery. Patient does not move complaints of chest pain and episodes of nonsustained ventricular tachycardia. In view of her new arrhythmia and chest pain, in order to further evaluate her coronary status, a cardiac catheterization was recommended. LV ejection fraction drop from 45 to 35%, based on the recent echocardiogram. The angiogram findings are as follows. 2. Mild to moderate coronary artery disease involving the mid segment of the LAD and ostium of the first diagonal branch. Nondominant right coronary artery. No other Significant is noted lesions. LVEDP was 7 mmHg. Diagnostic RX Recommendation: medical therapy and/or counseling LV EDP: 7 mmHg Left Ventriculography Findings: * The LV gram was not performed. LVEDP was 7 mmHg. Pressures Phase:Rest AO : 177 / 94 ( 131 ) @ 10:46:00 AM 138 / 83 ( 108 ) @ 10:48:00 AM 148 / 67 ( 99 ) @ 10:55:00 AM 149 / 64 ( 101 ) @ 10:55:00 AM LV : 145 / -7 / 7 @ 10:54:00 AM 145 / -6 / 8 @ 10:55:00 AM Valves Phase:DefaultPhase AV : 0.0 @ 10:03:07 AM AV Mean Gradient: 0.0 @ 10:03:07 AM 0.0 @ 10:03:07 AM Clinical Evaluation EBL: 5mL-10mL Procedural Details Pre-Procedure Time Out. Identified patient by full name and date of as verbalized by the patient/guarantor. Does the consent match the physician's order: Yes. Accurate & Complete Informed Consent: Yes. Inpatient/Outpatient History & Physical on Chart: Yes. If H&P is completed, is and addenduem needed: No; If yes, is the addendum complete: N/A. Procedure started. Procedure Consent Obtained. [facility] Clinical Fraility Score: 4: Vulnerable. 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 Track Vehicle Repairer Indications: Cardiac Arrhythmia. Chest Pain Symptom Assessment: Atypical Angina. Correct patient, site and procedure confirmed by cath team. PERRLA. Strong, equal hand entry specialists bilaterally. Lungs clear x 5 lobes. IV Site on Arrival: 20 gauge in the left anticubital. A 22 gauge IV was started in the right anticubital using aseptic technique. IV Fluids: 0.9% NaCl at KVO. 0 mL infused prior to cardiac cath rn. Oxygen started at 2liters/min via nasal canula. Pre Procedural Pulses: bilateral dorsalis pedis was 1+. Pre Procedural Pulses: bilateral posterior tibial was 1+. bilateral groins was prepped with chloroprep then draped in the usual sterile fashion. Baseline sample Acquired. HR: 108 BPM. Physician arrived. Baseline sample Acquired. HR: 116 BPM. Physician scrubbed in. Immediate Pre-Procedure Time Out. Correct Patient: Yes; Correct Procedure: Yes; Correct Site: Yes; Correct Patient Position: Yes; Correct Supplies: Yes; Dried Flammable Prep: Yes; Blood Products Available: N/A;. Lidocaine 1% infiltrated to the right groin. Arterial access obtained with micropuncture set. A 5 portuguese JL4 catheter in over wire. Multiple views taken of left coronary artery. Catheter removed over the standard wire. A 5 portuguese JR4 catheter in over wire. Multiple views taken of right coronary artery. EDP Sample taken: LV 145/-8,7; HR: 68 BPM; SpO2: 100%. Pullback taken: LV 145/-7,8; AO 148/67(99); Mean: 0mmHg, Peak to Peak: 0mmHg, SEP: 21sec/min; HR: 68 BPM; SpO2: 100%. Catheter removed over the standard wire. Physician scrubbed out. A Suture was successful obtaining hemostatsis at the Right Femoral artery insertion site. Arterial sheath flushed and connected to tranducer and pressure bag with heparinized saline. Post Procedure: Pulses reassessed and unchanged. PERRLA. Strong, equal hand entry specialists bilaterally. No VTE prophylaxis required. Medication's Wasted: Heparin = 4000 UNITS. Total IV fluids: 250 mL. Post-op diagnosis: Normal Coronaries. Complications: none. Estimated blood loss: 5mL-10mL. Responsiveness - Normal response to verbal stimuli; alert and oriented, PERRLA. Airway - Unaffected, no intervention required; spontaneous ventilation. Circulation: W/N/L, pulses unchanged. Nausea/Vomiting: No. Procedure completed. Patient transferred by bed to ICU. Vital chart was stopped. Access Site Site: Right Femoral artery Sheath Size: 5 Fr Hemostasis Method: Suture Hemostasis Success: Successful Procedure Medications Start: 9:27 AM Stop: 9:27 AM Medication: Diphendryamine Amount: 25 mg Route: I.V. Start: 9:35 AM Stop: 9:35 AM Medication: Versed Amount: 1 mg Route: I.V. Start: 9:35 AM Stop: 9:35 AM Medication: Fentanyl Amount: 50 mcg Route: I.V. Start: 9:43 AM Stop: 9:43 AM Medication: Fentanyl Amount: 25 mcg Route: I.V. Start: 9:44 AM Stop: 9:44 AM Medication: Versed Amount: 1 mg Route: I.V. Start: 9:44 AM Stop: 9:44 AM Medication: Fentanyl Amount: 25 mcg Route: I.V. Start: 9:45 AM Stop: 9:45 AM Medication: Heparin Amount: 1500 units Route: I.V. Start: 9:55 AM Stop: 9:55 AM Medication: 0.9% Saline Amount: 250 ml Route: I.V. bolus Start: 9:57 AM Stop: 9:57 AM Medication: Fentanyl Amount: 25 mcg Route: I.V. I, the attending physician, have reviewed and verified all procedure medications. Yes, all medications given per verbal order History/Risk Factors Hypertension: Yes Dyslipidemia: No Peripheral Arterial Disease (PAD): No Myocardial Infarction (VT): No Obesity: No Renal Disease: No Prior Interventions PCI: No CABG: No Valve Surgery: No Report Signatures Finalized by Dr Laura Valentine MD [facility] on 07/07/2022 08:51 AM
[2022-07-06 12:00] LABS: Partial Thromboplastin Time 33.9 SECONDS (23.9-36.7)
--- NOTE | 2022-07-06 16:47 | PM.PN ---
Subjective Subjective: Patient evaluated by cardiology this morning and taken to the Product Line Manager. Noted to have mild CAD, plan to continue medical management. No new acute events since overnight. Vitals/I&O/Wt Last Vital Signs Temp 97.7 F 07/06/22 00:00 Pulse 64 07/06/22 16:00 Resp 16 07/06/22 16:00 BP 100/60 07/06/22 16:00 Pulse Ox 98 07/06/22 16:00 O2 Del Method 07/06/22 00:00 07/06/22 07/06/22 07/06/22 06:59 14:59 22:59 Intake Total 110 / 213 561.129 / 561.129 Balance 110 / 213 561.129 / 561.129 Weight last 48 hrs Weight 50.031 kg Weight 52.163 kg Physical Exam Narrative: General: No acute distress, AO x3 HEENT: PERRLA, pupils bilaterally equal and reactive, pallors not present Chest: Normal vesicular breath sounds, no added sounds, equal good air entry bilaterally CVS: S1-S2 regular, no murmurs, no tachycardia, no gallops, no rubs Abdomen: Soft, nontender, no organomegaly, bowel sounds present Neuro: No focal deficits, no facial deformity, AO x3, power 5/5 in all limbs Data 07/06/22 00:56 07/06/22 00:56 A&P Assessment and plan (1) V-tach: Episodes of V. tach lasting about 10 seconds, resolving spontaneously. Started on amiodarone drip. Continue. Cardiac monitoring with infusion. Appreciate Cardiology consultation. s/p cardiac cath this morning with findings of mild CAD, continue medical management (2) Chest pain: s/p cardiac cath today currently pain is improving (3) Cough: Cough productive of small amount of sputum. Possible mild bronchitis. Chest x-ray reviewed, no acute findings. D dimer 0.6, lower than 06/2021, age appropriate Plan Anxiety HTN Secondhand smoke exposure Attestations Medical Necessity Statement*: amiodarone infusion, cardiology assessmen, s/p cardic cath today Coding Level of Care Code Critical Care >/= 30 minutes Diagnoses V-tach I47.20 Chest pain R07.9 Cough R05.9
[2022-07-07] VITALS (12 sets, daily range): BP systolic 82–145; BP diastolic 39–74; PULSE 60–84; RESP 17–24; TEMP 36.6; O2SAT 94–99
[2022-07-07 05:34] LABS: Basophils # 0.1 10^3/uL (0.0-0.1); Basophils % 0.5 %; Eosinophils # 0.3 10^3/uL (0.0-0.8); Eosinophils % 2.7 %; Hematocrit 40.8 % (37.0-47.0); Hemoglobin 12.7 g/dL (11.5-15.3); Lymphocytes # 1.7 10^3/uL (0.8-4.8); Lymphocytes % 17.5 %; Mean Corpuscular HGB Conc 31.1 g/dL (30.0-36.0); Mean Corpuscular Hemoglobin 30.1 pg (28.0-34.0); Mean Corpuscular Volume 96.7 fl (81-99); Mean Platelet Volume 9.9 fL (7.4-10.4); Monocytes # 0.6 10^3/uL (0.2-0.9); Monocytes % 6.5 %; Neutrophils # 7.03 10^3/uL (1.8-7.7); Neutrophils % 72.6 %; Nucleated Red Blood Cells % 0 %; Platelet Count 205 10^3/cmm (130-400); Red Blood Count 4.22 10^6/uL (4.1-5.3); Red Cell Distribution Width 12.8 % (12.1-15.1); White Blood Count 9.7 10^3/uL (4.0-10.0)
[2022-07-07 05:50] LABS: Blood Urea Nitrogen 13 mg/dL (8-23); Calcium 8.5 mg/dL (8.5-10.5); Carbon Dioxide 27 mmol/L (22-29); Chloride 107 mmol/L (98-107); Glucose 87 mg/dL (65-115); Osmolality Calculated 289 mOsm/kg (285-295); Sodium 140 mmol/L (136-145)
[2022-07-07] MEDS: aspirin 81 mg EC Tablet PO (08:55)
--- NOTE | 2022-07-07 13:50 | P.PN_ITS ---
Subjective Subjective: The patient is feeling okay. Has not had any recurrence of ventricular tachycardia on the monitor. Tolerating the amiodarone so far well. No hematoma bleeding at the right groin. Medications: Medication Review Details: Current Medications Acetaminophen (Acetaminophen 325 Mg Tablet) 650 mg PO Q6H PRN PRN Reason: Mild/Mod Pain Or Temp >/= 101 Al Hydrox/Mg Hydrox/Simethicone (Jnqp-Scg-Bvdpnzsdr-[place] 30 Ml Udc) 30 ml PO Q15M PRN PRN Reason: INDIGESTION Alprazolam (Alprazolam 0.5 Mg Tablet) 0.25 mg PO TID PRN PRN Reason: ANXIETY Aspirin (Aspirin 81 Mg Ec Tablet) 81 mg PO DAILY [facility] Last Admin: 07/07/22 08:55 Dose: 81 mg Atropine Sulfate (Atropine 1 Mg/Ml Sdv 1 Ml) 0.5 mg IVP PRN PRN PRN Reason: Symptomatic bradycardia Enoxaparin Sodium (Enoxaparin 40 Mg/0.4 Ml Syringe) 40 mg SUBCUT Q24H [facility] Last Admin: 07/06/22 23:49 Dose: 40 mg Guaifenesin/Dextromethorphan (Guaifenesin-Dextromethorphan Udc 10 Ml) 5 ml PO Q4H PRN PRN Reason: COUGH Amiodarone HCl 900 mg/Dextrose/ IV Miscellaneous Supplies 518 mls @ 0 mls/hr IV .Q0M [facility]; Protocol Last Titration: 07/06/22 20:03 Dose: Infused Magnesium Hydroxide (Magnesium Hydroxide 30 Ml Udc) 30 ml PO DAILY PRN PRN Reason: CONSTIPATION Naloxone HCl (Naloxone 0.4 Mg/Ml Sdv) 0.1 mg IVP Q2M PRN PRN Reason: RESPIRATORY RATE < 8/MIN Nitroglycerin (Nitroglycerin 0.4 Mg Sublingual Tablet) 0.4 mg SUBLINGUAL Q5M PRN PRN Reason: CHEST PAIN Ondansetron HCl (Ondansetron 2 Mg/Ml Sdv 2 Ml) 4 mg IVP Q8H PRN PRN Reason: vomiting, or N/V if npo Temazepam (Temazepam 15 Mg Capsule) 15 mg PO BEDTIME PRN PRN Reason: INSOMNIA Vitals/I&O/Wt Last Vital Signs Temp 97.9 F 07/07/22 08:53 Pulse 84 03/24/23 12:00 Resp 20 H 07/07/22 12:00 BP 122/74 07/07/22 12:00 Pulse Ox 94 07/07/22 12:00 O2 Del Method 07/07/22 12:00 07/06/22 07/07/22 07/07/22 22:59 06:59 14:59 Intake Total 666.871 / 1228.000 110 / 1338.000 Output Total 950 / 950 475 / 1425 Balance -283.129 / 278.000 -365 / -87.000 Weight last 48 hrs Weight 110 lb 4.8 oz Weight 115 lb Physical Exam Narrative: GENERAL: The patient is alert and oriented times three. Not in any acute distress. [] HEENT: No significant pallor, icterus or lymphadenopathy.Oral cavity: There are no mucous membrane lesions. NECK: Trachea appears to be central. No masses noted. No JVD or thyromegaly appreciated. RESPIRATORY: Chest is symmetrical. No intercostals muscle retraction or any accessory muscle activation. There is no chest wall tenderness. Breath sounds are heard bilaterally. No rales or rhonchi heard. No evidence of any consolidation. [] BREASTS: Deferred. [] HEART: The heart sounds are normal. No S3 or S4. Short systolic murmur the left sternal border. No diastolic murmurs. No pericardial rub ABDOMEN: No vessel pulsations or distention. No tenderness. No organomegaly appreciated. Bowel sounds are normally heard. [] : Deferred. [] RECTAL: Deferred. [] LYMPHATIC: No lymphadenopathy noted in the neck. EXTREMITIES: No hematoma bleeding in the right groin. Has some ecchymosis. MUSCULOSKELETAL: No acute joint deformities or swelling SKIN: There are no significant rashes or ecchymosis NEUROPSYCHIATRIC: The patient is alert and oriented x3. Appears to be in a good mood. No tremors or rigidity noted. [] Data 07/07/22 05:02 07/07/22 05:02 A&P Assessment and plan (1) Chest pain: The catheterization findings were once again discussed with the patient. She has mild to moderate disease in the left anterior descending artery. Left dominant coronary circulation. Chest pain most likely is nonischemic. Currently she has no recurrence. May continue on the current medications. (2) Ventricular tachycardia: Patient may be kept on amiodarone. (3) History of chronic fatigue: This has been chronic and stable (4) Benign essential HTN: Currently she is normotensive. May continue on the current medications. (5) Anxiety: Patient has a history of chronic anxiety disorder. (6) S/P implantation of automatic cardioverter/defibrillator (AICD): ICD function is appropriate. May continue on the current settings. Plan If the patient continues to remain stable, may be discharged home from a cardiac standpoint. The amiodarone need to be on a tapering dose Amiodarone 400 mg p.o. twice daily for 1 week Followed by 400 mg p.o. daily for a week Followed by 200 mg p.o. daily . Appointment at the [facility] to be seen by the nurse practitioner in 1 to 2 weeks Appoint with me in the office as scheduled Discussed with Dr. Bre Peterson Medical Necessity Statement*: Possible discharge home today Coding Level of Care Code 08141 Diagnoses Chest pain R07.9 Ventricular tachycardia I47.20 History of chronic fatigue Z87.898 Benign essential HTN I10 Anxiety F41.9 S/P implantation of automatic cardioverter/defibrillator (AICD) Z95.810
== END 2022-07-07 16:44 | disposition home or self-care (01) ==
LOC: ER 22:22 → ICU 07-06 00:32
PROVIDERS: Internal Medicine Cardiovascular Disease; Admitting Provider Internal Medicine; Emergency Provider Emergency Medicine; Visit Provider Student in an Organized Health Care Education/Training Program
DX: I42.9 Cardiomyopathy, unspecified (principal); I25.10 Atherosclerotic heart disease of native coronary artery without angina pectoris; R07.89 Other chest pain; I47.20 Ventricular tachycardia, unspecified; Z87.898 Personal history of other specified conditions; I10 Essential (primary) hypertension; F41.9 Anxiety disorder, unspecified; Z95.810 Presence of automatic (implantable) cardiac defibrillator; R05.9 Cough, unspecified; E78.5 Hyperlipidemia, unspecified; Z79.82 Long term (current) use of aspirin
CPT/HCPCS: 36415; 71045; 80048; 80053; 83690; 83735; 84443; 84484; 85025; 85378; 85730; 93005; 93306; 93458; 93970; 96365; 96367; 96372; 96376; 99152; 99153; 99291; C1769; C1887; C1894; G0378; J0282; J1200; J1644; J1650; J2250; J3010; J3490; J7030; J7060; Q9967

== ENCOUNTER → 2022-07-14 10:55 | Outpatient (BNVA) | payer MEDICARE, SELFPAY | PROVIDERS: Visit Provider Specialist | DX: I25.10 Atherosclerotic heart disease of native coronary artery without angina pectoris (principal); I42.9 Cardiomyopathy, unspecified; I47.20 Ventricular tachycardia, unspecified; Z79.82 Long term (current) use of aspirin; Z95.810 Presence of automatic (implantable) cardiac defibrillator | CPT/HCPCS: 99214 ==

== ENCOUNTER 2022-09-21 13:25 | Outpatient (CLI) | payer MEDICARE, SELFPAY ==
--- NOTE | 2022-09-21 13:00 | XR_ITS ---
WS: [id number] SCREENING DEXA SCAN [employer] CLINICAL INFORMATION: screening COMPARISON: 2017 FINDINGS: The L1-L4 bone mineral density measures 1.173 g/cm2. This corresponds to a T score score of -0.1 and Z score of 2.2. Left femoral neck bone mineral density measures 0.711 g/cm2. This corresponds to a T score of -2.4 an d Z score of -0.2. Right femoral neck bone mineral density measures 0.673 g/cm2. This corresponds to a T score -2.7of an d Z score of -0.5. Mean femoral neck bone mineral density measures 0.692 g/cm2. This corresponds to a T score of -2.5 an d Z score of -0.3. XR/XR DEXA axial skeleton* [id number] IMPRESSION: Normal bone mineralization lumbar spine. Osteoporosis femoral necks at the lowe r end of the range. Patient's FRAX calculated 10 year probability for major osteoporotic fracture i s 19.8 % and osteoporotic hip fracture is 8.6%. Since 2017 examination: Bone mineral density lumbar spine has decreased -0.5% Bone mineral density femoral necks has decreased -8.9%
--- NOTE | 2022-09-21 13:31 | MM_ITS ---
WS: [id number] Bilateral screening 3D tomosynthesis digital mammogram, 09/21/2022 Clinical Data: screening Comparison: 01/08/2017, 09/16/2010. Findings: The breast parenchymal pattern shows ring density. No spiculated masses or clustered calcifications a re seen. There are no secondary signs of carcinoma. There are mole markers on both breasts. There is a pacemaker generator in the left axilla. MM/[place] [id number] Impression: 1. Negative bilateral mammogram unchanged. 2. Recommend annual screening mammograms. BIRADS: 1-Negative FOLLOW UP: 1 Year Follow-up The CAD receiving dock checker was used.
== END 2022-09-21 13:26 | disposition home or self-care (01) ==
PROVIDERS: Visit Provider Nurse Practitioner Family
DX: Z12.31 Encounter for screening mammogram for malignant neoplasm of breast (principal); Z13.820 Encounter for screening for osteoporosis; Z78.0 Asymptomatic menopausal state; M81.0 Age-related osteoporosis without current pathological fracture
CPT/HCPCS: 77063; 77067; 77080

== ENCOUNTER → 2022-09-29 08:31 | Outpatient (BNVA) | payer MEDICARE, SELFPAY | PROVIDERS: Visit Provider Nurse Practitioner Family | DX: I25.10 Atherosclerotic heart disease of native coronary artery without angina pectoris (principal); I11.0 Hypertensive heart disease with heart failure; I50.1 Left ventricular failure, unspecified; Z95.810 Presence of automatic (implantable) cardiac defibrillator | CPT/HCPCS: 99214 ==

== ENCOUNTER 2023-03-11 23:48 | Inpatient (IN) | payer MEDICARE, SELFPAY ==
[2023-03-11 23:56] VITALS: BP 88/66; PULSE 96; RESP 18; TEMP 37; O2SAT 94; BMI 17.0
--- NOTE | 2023-03-11 23:59 | CTR_ITS ---
PROCEDURE INFORMATION: Exam: CT Head Without Contrast Exam date and time: 03/12/2023 12:42 AM Age: 77 years old Clinical indication: Other: General weakness TECHNIQUE: Imaging protocol: Computed tomography of the head without contrast. Radiation optimization: All CT scans at this facility use at least one of these dose optimization techniques: automated exposure control; mA and/or kV adjustment per patient size (includes targeted exams where dose is matched to clinical indication); or iterative reconstruction. REPORTING DATA: Count of CT and Cardiac NM exams in prior 12 months: This patient has received 0 known CTs and 0 known cardiac nuclear medicine studies in the 12 months prior to the current study. COMPARISON: CR XR cervical spine 3V* [id number] 01/06/2020 1:50 PM RADIATION DOSE METRICS: Total DLP (mGy-cm): 1460.18 FINDINGS: Brain: Normal. No hemorrhage. Unremarkable white matter. No mass effect. Cerebral ventricles: No ventriculomegaly. Paranasal sinuses: Visualized sinuses are unremarkable. No fluid levels. Mastoid air cells: Visualized mastoid air cells are well aerated. Bones/joints: Unremarkable. No acute fracture. Soft tissues: Unremarkable. CT/CT head wo con* [id number] IMPRESSION: No acute intracranial abnormality.
--- NOTE | 2023-03-11 23:59 | XRR_ITS ---
PROCEDURE INFORMATION: Exam: XR Chest Exam date and time: 03/12/2023 12:35 AM Age: 77 years old Clinical indication: Other: General weakness; Prior surgery; Surgery date: 6+ months; Surgery type: Lumpectomy; Additional info: Cough TECHNIQUE: Imaging protocol: Radiologic exam of the chest. Views: 1 view. COMPARISON: CR XR chest 1V portable [id number] 07/05/2022 7:35 PM FINDINGS: Tubes, catheters and devices: Left-sided pacemaker. Lungs: Patchy right largely lower lobe atelectasis versus infiltrate. Emphysematous changes. Pleural spaces: Unremarkable. No pleural effusion. No pneumothorax. Heart/Mediastinum: Cardiomegaly. Bones/joints: Unremarkable. XR/XR chest 1V portable [id number] IMPRESSION: 1. Patchy right largely lower lobe atelectasis versus infiltrate. 2. Cardiomegaly. 3. Left-sided pacemaker. 4. Emphysematous changes.
[2023-03-12] VITALS (32 sets, daily range): BP systolic 92–122; BP diastolic 47–81; PULSE 63–127; RESP 0–34; TEMP 36.4–38.7; O2SAT 91–97
--- NOTE | 2023-03-12 | ECG_ITS ---
[facility] Test Date: 2023-03-12 Pat Name: Lorie Wong Department: Room: Gender: Female Casing Tester: : 1945 Requested By: Jessi Oliva Order Number: [id number] Gelacio MD: Mandeep Hanley M.D. Measurements Intervals [place] Rate: 101 P: 0 [place]: 0 QRS: -47 QRSD: 104 T: 190 QT: 348 QTc: 453 Interpretive Statements Sinus rhythm with frequent PVCs Nonspecific ST changes. ABNORMAL RHYTHM ECG Compared to ECG 07/06/2022 03:01:29 AV -paced complex(es) or rhythm no longer present Electronically Signed On 03-12-2023 9:12:42 [employer]PERVISOR [employer] T[employer]ATING by Mandeep Hanley M.D. [id number]
--- NOTE | 2023-03-12 00:06 | ED_ITS ---
HPI - Weakness General: Chief complaint: Weakness Stated complaint: WEAKNESS Time Seen by Provider: 03/11/23 23:49 Source: patient and EMS Mode of arrival: EMS Limitations: no limitations History of Present Illness: 77-year-old female states she has been having increasing weakness over the last 5 days. Patient lives alone her friend came and checked on her tonight and found her on the floor states that she had slid to the floor tonight and could not get up. She had a slight cough has had decreased intake patient was hypotensive with EMS and gave her 500 mL of fluids blood pressure now is 102/47 she denies any pain anywhere she did answer my questions appropriately Associated symptoms: Denies chest pain, chills, dysuria, fever(s), headache(s), nausea or vomiting Review of Systems Const: Reports: change in appetite, fatigue and malaise; Denies: fever(s), chills or body aches Eyes: Denies: blurry vision or eye discomfort ENMT: Denies: throat pain or dental pain Card: Denies: chest pain Resp: Denies: dyspnea GI: Denies: abdominal pain, nausea, vomiting or diarrhea : Denies: dysuria Musc: Denies: neck pain or back pain Skin/Breast: Denies: rash Neuro: Reports: weakness in extremities; Denies: headache(s) PFSH ED PFSH: Medical History Anxiety Arrhythmia Benign essential HTN Cardiomyopathy Heart failure, left, with LVEF <=30% History of chronic fatigue Hx of cardiac arrhythmia Hx of cardiomyopathy Hx of chest pain Hx of essential hypertension Hx of viral pericarditis Hypertension Near syncope Surgical History History of breast lump removal History of partial hysterectomy Family History Brother CAD (coronary artery disease) unknown age of onset Mother Dementia Father Diabetes Other Suicide Denies family history of Clotting disorder Chronic kidney disease (CKD) Anesthesia complication Bleeding disorder Lung disease Cancer Stroke Social History Smoking and tobacco/nicotine status: never used tobacco/nicotine Second hand smoke exposure: Yes Alcohol intake: never Substance/Drug Use: never Lives independently: Yes Household members: significant other Marital status: Life Partner Current gender identity: Female Special yennifer needs: No Agree to transfusion: Yes Physical Exam Const: COMMON NORMALS: patient oriented x3 GENERAL APPEARANCE: frail appearing HENMT: COMMON NORMALS: normocephalic and atraumatic HEAD & SCALP: normocephalic and atraumatic Eye: COMMON NORMALS: Equal, round and reactive pupils present and EOMs intact bilaterally PUPIL: Yes Equal, round and reactive pupils present Neck/C-Spine: COMMON NORMALS: full ROM and supple Chest: COMMONS NORMALS: normal inspection of the chest and normal palpation of entire chest wall Resp: COMMON NORMALS: normal respiratory effort, No retractions, No use of accessory muscles and clear to auscultation bilaterally AUSCULTATION: clear to auscultation bilaterally Cardio: COMMON NORMALS: regular rate, regular rhythm and No murmurs present (Cardio) RATE: regular rate RHYTHM: regular rhythm GI: COMMON NORMALS: Normal to inspection, nondistended, normoactive bowel sounds present, Soft to palpation, non-tender and no masses PALPATION: Yes Soft to palpation Extremity: COMMON NORMALS: normal to inspection and full ROM Neuro: COMMON NORMALS: patient oriented x3, moves all extremities and no focal motor deficits Psych: COMMON NORMALS: mental status grossly normal, Normal thought process present and cooperative THOUGHT PROCESS: Normal thought process present Skin: COMMON NORMALS: no rashes or lesions noted and no wounds GENERAL SKIN EXAM: no rashes or lesions noted Course Vital Signs: Vital signs: Vital Signs Temperature 98.6 F 03/11/23 23:56 Pulse Rate 88 03/12/23 00:51 Respiratory Rate 25 H 03/12/23 00:51 Blood Pressure 94/47 03/12/23 00:51 Pulse Oximetry 93 03/12/23 00:51 Oxygen Delivery Me thod Room Air 03/11/23 23:56 MDM - Weakness Medical Decision Making Patient presents with generalized weakness along with elevated white count likely from her UTI along with pneumonia blood pressure here is improved after IV fluids lactates normal start IV antibiotics spoke to hospitalist will admit at this time. Medical Records I reviewed the patient's medical records. Lab Data I reviewed the patient's lab results. 03/12/23 00:35 03/12/23 00:35 Radiology Impressions Chest X-Ray 03/11/23 23:59 IMPRESSION: 1. Patchy right largely lower lobe atelectasis versus infiltrate. 2. Cardiomegaly. 3. Left-sided pacemaker. 4. Emphysematous changes. Head CT 03/11/23 23:59 IMPRESSION: No acute intracranial abnormality. Laboratory Results WBC 19.70 10^3/uL (3.29-11.43) H 03/12/23 00:35 RBC 4.41 10^6/uL (3.85-5.65) 03/12/23 00:35 Hgb 13.40 g/dL (11.27-16.99) 03/12/23 00:35 Hct 41.5 % (36-47) 03/12/23 00:35 MCV 94.1 fl (85-98) 03/12/23 00:35 MCH 30.4 pg (27-33) 03/12/23 00:35 MCHC 32.3 g/dL (30-55) 03/12/23 00:35 RDW 12.9 % (12.1-15.1) 03/12/23 00:35 Plt Count 194 10^3/cmm (157-399) 03/12/23 00:35 MPV 11.5 fL (7.4-10.4) H 03/12/23 00:35 Neut % (Auto) 90.2 % 03/12/23 00:35 Lymph % (Auto) 3.1 % 03/12/23 00:35 [place] % (Auto) 5.4 % 03/12/23 00:35 Eos % (Auto) 0.0 % 03/12/23 00:35 Baso % (Auto) 0.2 % 03/12/23 00:35 Neut # (Auto) 17.77 10^3/uL (1.8-7.7) H 03/12/23 00:35 Lymph # (Auto) 0.6 10^3/uL (0.8-4.8) L 03/12/23 00:35 [place] # (Auto) 1.1 10^3/uL (0.2-0.9) H 03/12/23 00:35 Eos # (Auto) 0.0 10^3/uL (0.0-0.8) 03/12/23 00:35 Baso # (Auto) 0.0 10^3/uL (0.0-0.1) 03/12/23 00:35 Nucleated RBC % (auto) 0 % 03/12/23 00:35 Nucleated RBCs # 0.0 /100WBC 03/12/23 00:35 PT 16.70 SECONDS (12.1-14.9) H 03/12/23 00:35 INR 1.30 (0.8-1.2) H 03/12/23 00:35 Sodium 132 mmol/L (136-145) L 03/12/23 00:35 Potassium 3.7 mmol/L (3.5-5.1) 03/12/23 00:35 Chloride 98 mmol/L (98-107) 03/12/23 00:35 Carbon Dioxide 21 mmol/L (22-29) L 03/12/23 00:35 Anion Gap 16.7 (5-19) 03/12/23 00:35 BUN 20 mg/dL (8-23) 03/12/23 00:35 Creatinine 0.9 mg/dL (0.5-0.9) 03/12/23 00:35 GFR Calculation Not Reportable 03/12/23 00:35 Glucose 171 mg/dL (65-115) H 03/12/23 00:35 POC Glucose 173 mg/dL (70-110) H 03/12/23 00:22 Calculated Osmolality 281 mOsm/kg (285-295) L 03/12/23 00:35 Lactic Acid 1.4 mmol/L (0.5-2.2) 03/12/23 00:35 Calcium 8.1 mg/dL (8.5-10.5) L 03/12/23 00:35 Magnesium 1.7 mg/dL (1.7-2.3) 03/12/23 00:35 Total Bilirubin 1.1 mg/dL (0.15-1.2) 03/12/23 00:35 AST 26 U/L (0-32) 03/12/23 00:35 ALT 14 U/L (0-33) 03/12/23 00:35 Alkaline Phosphatase 68 U/L (35-105) 03/12/23 00:35 Creatine Kinase 292 U/L (26-192) H 03/12/23 00:35 NT-Pro-B Natriuret Pep 5580 pg/mL (0-450) H 03/12/23 00:35 Total Protein 6.0 g/dL (6.6-8.7) L 03/12/23 00:35 Albumin 2.9 g/dL (3.5-5.2) L 03/12/23 00:35 Globulin 3.1 g/dL (1.3-4.6) 03/12/23 00:35 TSH 0.97 uIU/mL (0.27-4.20) 03/12/23 00:35 Urine Color Yellow (Yellow) 03/12/23 01:30 Urine Appearance Cloudy (CLEAR) A 03/12/23 01:30 Urine pH 5 (5-7) 03/12/23 01:30 Ur Specific [place] 1.020 (1.005-1.030) 03/12/23 01:30 Urine Protein 2+ (Negative) H 03/12/23 01:30 Urine Glucose (UA) 1+ (Normal) H 03/12/23 01:30 Urine Ketones 1+ (Negative) H 03/12/23 01:30 Urine Blood 3+ (Negative) H 03/12/23 01:30 Urine Nitrate Negative (Negative) 03/12/23 01:30 Urine Bilirubin 1+ (Negative) H 03/12/23 01:30 Urine Urobilinogen 4 mg/dL (Negative) H 03/12/23 01:30 Ur Leukocyte Esterase 2+ (Negative) H 03/12/23 01:30 Urine RBC >100 /hpf (0-2) H 03/12/23 01:30 Urine WBC >100 /hpf (0-5) H 03/12/23 01:30 Ur Squamous Epith Cells 5-10 /hpf (0-5) H 03/12/23 01:30 Amorphous Sediment 3+ /hpf 03/12/23 01:30 Urine Bacteria 2+ /hpf (NONE) H 03/12/23 01:30 Fine Granular Casts 10-15 /lpf H 03/12/23 01:30 Influenza Type A Ag negative (Negative) 03/12/23 00:45 Influenza Type B Ag negative (Negative) 03/12/23 00:45 All radiology interpretation(s) finalized by discharge Discharge Plan Discharge Patient Disposition: Admitted As Inpatient Clinical Impression: Pneumonia, Acute cystitis Condition: Stable Prescriptions: No Action nitroglycerin 0.4 mg tablet, sublingual 0.4 mg SUBLINGUAL Q5M PRN (Reason: Chest Pain) Qty: 25 6RF Rx Instructions: do not exceed 3 doses per episode amoxicillin 875 mg tablet 875 mg PO BID Qty: 20 0RF Referrals: William Arredondo MD [Occupational Therapist] - Coding Level of Care Code ED Automobile Upholsterer Apprentice for Radha Vera
[2023-03-12 00:46] LABS: Glucose Point of Care 173 mg/dL (70-110)
[2023-03-12] MEDS: sodium chloride 0.9% 1,000 ML 999 ML IV ×2 (00:52→02:28)
[2023-03-12 00:56] LABS: Basophils % 0.2 %; Hematocrit 41.5 % (36-47); Lymphocytes # 0.6 10^3/uL (0.8-4.8); Lymphocytes % 3.1 %; Mean Corpuscular HGB Conc 32.3 g/dL (30-55); Mean Corpuscular Hemoglobin 30.4 pg (27-33); Mean Corpuscular Volume 94.1 fl (85-98); Mean Platelet Volume 11.5 fL (7.4-10.4); Monocytes # 1.1 10^3/uL (0.2-0.9); Monocytes % 5.4 %; Neutrophils # 17.77 10^3/uL (1.8-7.7); Neutrophils % 90.2 %; Nucleated Red Blood Cells % 0 %; Platelet Count 194 10^3/cmm (157-399); Red Blood Count 4.41 10^6/uL (3.85-5.65); Red Cell Distribution Width 12.9 % (12.1-15.1)
[2023-03-12] MEDS: azithromycin 500 MG in sodium chloride 0.9% 250 ML 250 MG IV (01:12)
[2023-03-12 01:13] LABS: Lactic Sepsis W/Reflex 1.4 mmol/L (0.5-2.2)
[2023-03-12 01:17] LABS: Influenza A by IFA negative (Negative); Influenza B by IFA negative (Negative)
[2023-03-12 01:26] LABS: Alanine Aminotransferase 14 U/L (0-33); Albumin Level 2.9 g/dL (3.5-5.2); Alkaline Phosphatase 68 U/L (35-105); Aspartate Amino Transferase 26 U/L (0-32); Blood Urea Nitrogen 20 mg/dL (8-23); Calcium 8.1 mg/dL (8.5-10.5); Carbon Dioxide 21 mmol/L (22-29); Chloride 98 mmol/L (98-107); Creatine Phosphokinase 292 U/L (26-192); Globulin 3.1 g/dL (1.3-4.6); Glucose 171 mg/dL (65-115); Magnesium 1.7 mg/dL (1.7-2.3); NT Pro B Type Natriuretic Pept 5580 pg/mL (0-450); Osmolality Calculated 281 mOsm/kg (285-295); Sodium 132 mmol/L (136-145); Thyroid Stimulating Hormone 0.97 uIU/mL (0.27-4.20); Total Bilirubin 1.1 mg/dL (0.15-1.2)
[2023-03-12 01:27] LABS: Anion Gap 16.7 (5-19); Potassium 3.7 mmol/L (3.5-5.1)
[2023-03-12 01:56] LABS: Add Urine Microscopic? YES; Bilirubin Urine 1+ (Negative); Blood Urine 3+ (Negative); Glucose Urine UA 1+ (Normal); Ketones Urine 1+ (Negative); Leukocyte Esterase Urine 2+ (Negative); Nitrate Urine Negative (Negative); Protein Urine 2+ (Negative); Urine Appearance Cloudy (CLEAR); Urine Color Yellow (Yellow); Urobilinogen Urine 4 mg/dL (Negative); pH Urine 5 (5-7)
[2023-03-12 01:57] LABS: Add Urine Culture? Yes; Amorphous Sediment Urine 3+ /hpf; Bacteria Urine 2+ /hpf; RBC Urine >100 /hpf (0-2); WBC Urine >100 /hpf (0-5)
--- NOTE | 2023-03-12 02:17 | P.HP_ITS ---
Providers/Chief Complaint Chief Complaint: WEAKNESS History of Present Illness Lorie Wong is a 77 year old female with history of non Ischemic cardiomyopathy extremely low EF, history of V. tach arrhythmias in the past, presented today after sustaining a fall. PatientWas sent to the ER when a neighbor checked on her and she was found on the floor, she has been diagnosed with right lower lobe pneumonia, UTI. Her blood pressure is 94/47 mmHg she received IV fluid hydration. She is afebrile however has significant leukocytosis. Lactic acid is normal. Patient is stating that she was feeling weak for a while today when she was walking out of the bathroom she lost her balance and fell she denies any chest pain she thinks her AICD discharged, she is not complaining of any active chest pain, she has chronic history of dyspnea on exertion, she has not noticed any fever but endorsing productive cough, received Augmentin antibiotic outpatient for her cough, endorsing symptoms of UTI Patient stating that she was with her boyfriend, she is not interested in going to any group home, she is full code She was given 1.5 L of fluid which improved her blood pressure Have asked ER physician to stop fluids because of her low EF Review of Systems Const: Reports: chills Eyes: Denies: change in vision ENMT: Denies: throat pain Card: Denies: chest pain Resp: Reports: dyspnea and productive cough GI: Denies: abdominal pain : Denies: flank pain Musc: Denies: neck pain Medications/Allergies Home Medications Medication Instructions Recorded Confirmed Last Taken Type nitroglycerin 0.4 mg sublingual 0.4 mg sublingual Q5M PRN Chest 02/08/22 12/19/22 Unknown Rx tablet Pain #25 tabs amoxicillin 875 mg tablet 875 mg PO BID #20 tabs 02/27/23 02/27/23 Unknown Rx Allergies Allergy/AdvReac Type Severity Reaction Status Date / Time No Known Allergies Allergy Verified 03/12/23 00:03 PFSH Acute PFSH: Medical History Anxiety Arrhythmia Benign essential HTN Cardiomyopathy Heart failure, left, with LVEF <=30% History of chronic fatigue Hx of cardiac arrhythmia Hx of cardiomyopathy Hx of chest pain Hx of essential hypertension Hx of viral pericarditis Hypertension Near syncope Surgical History History of breast lump removal History of partial hysterectomy Family History Brother CAD (coronary artery disease) unknown age of onset Mother Dementia Father Diabetes Other Suicide Denies family history of Clotting disorder Chronic kidney disease (CKD) Anesthesia complication Bleeding disorder Lung disease Cancer Stroke Social History Smoking and tobacco/nicotine status: never used tobacco/nicotine Second hand smoke exposure: Yes Alcohol intake: never Substance/Drug Use: never Lives independently: Yes Household members: significant other Marital status: Life Partner Current gender identity: Female Special yennifer needs: No Agree to transfusion: Yes Vitals/I&O/Wt Last Vital Signs Temp 98.6 F 03/11/23 23:56 Pulse 88 03/12/23 00:51 Resp 25 H 03/12/23 00:51 BP 94/47 03/12/23 00:51 Pulse Ox 93 03/12/23 00:51 O2 Del Method Room Air 03/11/23 23:56 Weight last 48 hrs Weight 49.442 kg Physical Exam Narrative: Pleasant cooperative female Nonfocal neuro exam She is able to move her extremities Low blood pressure Awake and alert GCS 15 S1, S2 paced rhythm Abdomen soft no Signs of fluid overload present Clinically patient looks very dry Data 03/12/23 00:35 03/12/23 00:35 Micro: Microbiology 03/12/23 00:35 Blood Culture - Preliminary Blood SPECIMEN COLLECTED 03/12/23 00:32 Blood Culture - Preliminary Blood SPECIMEN COLLECTED A&P Assessment and plan (1) Pneumonia: (2) Acute cystitis: (3) Weakness: (4) S/P implantation of automatic cardioverter/defibrillator (AICD): (5) Heart failure, left, with LVEF <=30%: Plan Community-acquired pneumonia: Start ceftriaxone and azithromycin Currently on room air Afebrile UTI: Request urine culture continue antibiotics Systolic CHF exacerbation EF 36% status post AICD Not a candidate of diuresis at this point requiring IV fluids, will start p.o. Lasix in the morning Her blood pressure normally runs on the softer side on review of previous records History of V. tach, status post pacemaker, recent pacemaker evaluation did not show significant changes there was no evidence of significant ventricular arrhythmia Needs home medication reconciliation She was on amiodaroneIn the past We will request physical therapy, frail, lives with her boyfriend, not interested in group home placement, Full code Cardiac diet Lovenox DVT prophylaxis Attestations Medical Necessity Statement*: Anticipating more than 2 midnights Diagnoses Pneumonia J18.9 Acute cystitis N30.00 Weakness R53.1 S/P implantation of automatic cardioverter/defibrillator (AICD) Z95.810 Heart failure, left, with LVEF <=30% I50.1
[2023-03-12] MEDS: cefTRIAXone 1,000 MG in sodium chloride 0.9% (plus) 50 ML 100 MG IV (02:28)
[2023-03-12 03:34] LABS: SARS Covid-2 Antigen negative (Negative)
--- NOTE | 2023-03-12 03:37 | PC.NURSE ---
Dr. Damico verbal cancelled remaining fluid administration.
[2023-03-12 04:31] LABS: Basophils % 0.2 %; Hematocrit 39.6 % (36-47); Lymphocytes # 0.8 10^3/uL (0.8-4.8); Mean Corpuscular HGB Conc 32.3 g/dL (30-55); Mean Corpuscular Hemoglobin 30.8 pg (27-33); Mean Corpuscular Volume 95.4 fl (85-98); Monocytes # 1.1 10^3/uL (0.2-0.9); Monocytes % 5.7 %; Neutrophils # 17.19 10^3/uL (1.8-7.7); Neutrophils % 88.9 %; Nucleated Red Blood Cells % 0 %; Platelet Count 190 10^3/cmm (157-399); Red Blood Count 4.15 10^6/uL (3.85-5.65); Red Cell Distribution Width 13.1 % (12.1-15.1); White Blood Count 19.32 10^3/uL (3.29-11.43)
[2023-03-12 04:52] LABS: Estmated Average Glucose 111; Hemoglobin A1C 5.5 % (4.0-6.0)
[2023-03-12] MEDS: enoxaparin 40 mg/0.4 mL Syringe SUBCUT (05:00)
[2023-03-12 05:01] LABS: Anion Gap 14.5 (5-19); Blood Urea Nitrogen 18 mg/dL (8-23); C Reactive Protein 216.9 mg/L (0.0-4.9); Calcium 7.8 mg/dL (8.5-10.5); Carbon Dioxide 23 mmol/L (22-29); Chloride 103 mmol/L (98-107); Glucose 146 mg/dL (65-115); Magnesium 1.8 mg/dL (1.7-2.3); Osmolality Calculated 289 mOsm/kg (285-295); Phosphorus 2.1 mg/dL (2.5-4.5); Potassium 3.5 mmol/L (3.5-5.1); Sodium 137 mmol/L (136-145)
[2023-03-12 05:10] LABS: Thyroid Stimulating Hormone 0.49 uIU/mL (0.27-4.20); Vitamin B12 601 pg/mL (232-1245)
--- NOTE | 2023-03-12 08:18 | CT_ITS ---
WS: [id number] CT ABDOMEN PELVIS TECHNIQUE: Noncontrast CT of the abdomen and pelvis with coronal and sagittal reformatted images. CLINICAL INFORMATION: hematuria COMPARISON: None. DLP: 349.[address] scans at [facility] use at least one of these dose optimization techniques: automated e xposure control; mA and/or kV adjustment per patient size (includes targeted exams where dose is matc hed to clinical indication); or iterative reconstruction. FINDINGS: Cardiomegaly. Small pericardial effusion partially visualized. Patchy infiltrates in the RIGHT lower lobe compatible with pneumonia with subtotal consolidation. Slight patchy infiltrates in the LEFT low er lobe. Diffuse body wall anasarca. Enlarged RIGHT hepatic lobe. Noncontrast liver is otherwise normal. Mild fluid distention of the gallbladder. Normal noncontrast spleen. Normal caliber abdominal aorta. Sligh tly aneurysmal abdominal aorta measuring 2.1 x 2.1 cm. No hydronephrosis in either kidney. Adrenal gl ands are normal. Pelvic phleboliths. No visualized obstructing renal or ureteral calculi. Urine diste nded bladder. Duplicated LEFT renal collecting system. Lumbar scoliosis. Disc space narrowing worse at L2-3, L3-L4 and L4-L5. IMPRESSION: 1. Patchy infiltrates with partial consolidation RIGHT lower lobe compatible with pneumonia. Slight patchy filtrates LEFT lower lobe. 2. Marked cardiomegaly with small partially visualized pericardial effusion. 3. Diffuse body wall anasarca. 4. Hepatomegaly. 5. No hydronephrosis in either kidney. Duplicated LEFT renal collecting system. 6. No visualized renal or ureteral calculi. 7. Urine distended bladder. 8. Mild sigmoid constipation. 9. No other acute findings.
--- NOTE | 2023-03-12 10:17 | PM.PN ---
Subjective Subjective: Lorie presents with history of a fall, being found on the floor. She was diagnosed with pneumonia in the emergency department, but a UTI may also be present. Her history and physical, was reviewed and I reviewed her HPI with her personally. She denies any chest pain. She has been coughing lately. She denies any dysuria. She reports she has not noted any blood in her urine. She initially got some fluid resuscitation in the emergency department secondary to low blood pressure, which has since improved. Medications: Reviewed: Yes Vitals/I&O/Wt Last Vital Signs Temp 98.6 F 03/11/23 23:56 Pulse 96 03/12/23 09:31 Resp 18 03/12/23 09:31 BP 104/76 03/12/23 08:47 Pulse Ox 92 03/12/23 09:31 O2 Del Method Room Air 03/12/23 09:31 O2 Flow Rate 2 03/12/23 01:20 03/11/23 03/12/23 03/12/23 22:59 06:59 14:59 Intake Total 1500 / 1500 Balance 1500 / 1500 Weight last 48 hrs Weight 49.442 kg Physical Exam Narrative: General exam is a conversant white female, in no distress Neck is supple no lymphadenopathy thyromegaly Cardiovascular regular rate and rhythm, no murmur Lungs clear Abdomen is soft nontender Extremities no cyanosis clubbing or edema Data 03/12/23 04:26 03/12/23 04:26 Other Labs: COVID and influenza are negative CT head, no acute changes. I reviewed this. Chest x-ray reviewed right lung infiltrate, pacemaker Abdominal pelvis CT, renal protocol, no hydronephrosis or stone, confirms lower lobe infiltrates Micro: Microbiology 03/12/23 00:35 Blood Culture - Preliminary Blood SPECIMEN COLLECTED 03/12/23 00:32 Blood Culture - Preliminary Blood SPECIMEN COLLECTED A&P Assessment and plan (1) Pneumonia: Patient presents with pneumonia Placed on Zithromax and Rocephin Sputum culture pending COVID and influenza negative Continue IV antibiotics currently (2) Heart failure, left, with LVEF <=30%: Patient with past history of heart failure Avoid excessive fluids Blood pressure was somewhat low on arrival. Restart medicines as tolerated. (3) Ventricular tachycardia: Patient with past history of ventricular tachycardia, defibrillator and pacemaker placement No evidence currently to suggest any arrhythmias with her fall Pacemaker evaluation (4) Acute cystitis: Patient with evidence of UTI on admission Continue Rocephin Await urine culture Plan Other medical problems as listed in past medical history Lovenox for DVT prophylaxis Attestations Medical Necessity Statement*: Needs continued hospitalization for IV antibiotics related to pneumonia Diagnoses Pneumonia J18.9 Heart failure, left, with LVEF <=30% I50.1 Ventricular tachycardia I47.20 Acute cystitis N30.00 Time Spent (min) 25
[2023-03-12] MEDS: FUROsemide 20 mg Tablet PO (10:30)
[2023-03-12] MEDS: sennosides-docusate Tablet 1 TAB PO (10:30)
--- NOTE | 2023-03-12 13:51 | P.CONIM_ITS ---
Providers/Reason For Consult Consulting Physician/Specialty*: Cardiology Reason for Consult*: ICD shock for VT Requesting Physician: Dr. Banda Attending Physician: Chip Banda MD History of Present Illness History of Present Illness Lorie Wong is a 77 year old female with a known history of cardiomyopathy, status post dual-chamber pacemaker/ICD in place, was admitted after an episode of syncope at home. She was found at home laying on the floor. Although patient does not remember the detail, but apparently she felt some palpitation followed by shock in her chest. On admission she was found to have an likely pneumonia and EKG showed sinus rhythm with frequent PVCs and non-specific ST changes. Since admission patient is being treated with an IV antibiotics with a good response. monitor technician showed sinus rhythm with very frequent PVCs. ICD interrogation revealed sustained VT, converted to sinus rhythm with a single ICD shock. Currently patient is resting comfortably. She denies any resting shortness of air, palpitation or chest pain. Review of Systems Narrative: Detailed 10 point systemic review unremarkable except for as mentioned above in the history of present illness. Patient denies any symptoms of angina or any active heart failure symptoms at home Medications/Allergies Home Medications Medication Instructions Recorded Confirmed Last Taken Type nitroglycerin 0.4 mg sublingual 0.4 mg sublingual Q5M PRN Chest 02/08/22 03/12/23 Unknown Rx tablet Pain #25 tabs amoxicillin 875 mg tablet 875 mg PO BID #20 tabs 02/27/23 03/12/23 Unknown Rx aspirin 81 mg tablet,delayed 81 mg PO DAILY 03/12/23 03/12/23 Unknown History release metoprolol succinate 25 mg 25 mg PO DAILY 03/12/23 03/12/23 Unknown History tablet,extended release 24 hr sacubitril 24 mg-valsartan 26 mg 1 tab PO BID 03/12/23 03/12/23 Unknown History tablet (Entresto) Allergies Allergy/AdvReac Type Severity Reaction Status Date / Time No Known Allergies Allergy Verified 03/12/23 00:03 Current Medications Generic Name Dose Route Start Last Admin Trade Name Freq PRN Reason Stop Dose Admin Enoxaparin Sodium 40 mg 03/12/23 03:56 03/12/23 05:00 Enoxaparin 40 Mg/0.4 Ml Syringe SUBCUT 40 mg Q24H ALMA Administration Furosemide 20 mg 03/12/23 09:00 03/12/23 10:30 Furosemide 20 Mg Tablet PO 20 mg DAILY ALMA Administration Senna/Docusate Sodium 1 tab 03/12/23 09:00 03/12/23 10:30 Sennosides-Docusate Tablet PO 1 tab DAILY ALMA Administration PFSH Acute PFSH: Medical History Anxiety Arrhythmia Benign essential HTN Cardiomyopathy Heart failure, left, with LVEF <=30% History of chronic fatigue Hx of cardiac arrhythmia Hx of cardiomyopathy Hx of chest pain Hx of essential hypertension Hx of viral pericarditis Hypertension Near syncope Surgical History History of breast lump removal History of partial hysterectomy Family History Brother CAD (coronary artery disease) unknown age of onset Mother Dementia Father Diabetes Other Suicide Denies family history of Clotting disorder Chronic kidney disease (CKD) Anesthesia complication Bleeding disorder Lung disease Cancer Stroke Social History Smoking and tobacco/nicotine status: never used tobacco/nicotine Second hand smoke exposure: Yes Alcohol intake: never Substance/Drug Use: never Lives independently: Yes Household members: significant other Marital status: Life Partner Current gender identity: Female Special yennifer needs: No Agree to transfusion: Yes Vitals/I&O/Wt Last Vital Signs Temp 97.6 F 03/12/23 12:03 Pulse 82 03/12/23 12:03 Resp 15 03/12/23 12:03 BP 100/57 03/12/23 12:03 Pulse Ox 94 03/12/23 12:03 O2 Del Method Room Air 03/12/23 12:03 O2 Flow Rate 2 03/12/23 01:20 03/11/23 03/12/23 03/12/23 22:59 06:59 14:59 Intake Total 1500 / 1500 Balance 1500 / 1500 Weight last 48 hrs Weight 109 lb Physical Exam Narrative: Patient resting comfortably. No acute respiratory distress. Vitals: Blood pressure 112/68 pulse atrial fibrillation rate 90-100 with frequent PVCs. O2 saturation 96% on room air. HEENT: Unremarkable. Eyes: Normal There is no JVD Lungs clear to auscultation bilaterally Cardiac examination: Irregularly irregular A-fib pulse normal first and second heart sounds. Mild systolic murmur of TR. Abdomen: Soft nontender bowel sounds audible Extremities: Unremarkable Neuro: Grossly intact Skin: Warm and dry Data 03/12/23 04:26 03/12/23 04:26 Micro: Microbiology 03/12/23 00:35 Blood Culture - Preliminary Blood SPECIMEN COLLECTED 03/12/23 00:32 Blood Culture - Preliminary Blood SPECIMEN COLLECTED A&P Assessment and plan (1) Ventricular tachycardia: (2) Cardiomyopathy: Plan 77-year-old female patient with a cardiomyopathy, LVEF 30 to 35%, status post ICD in place. Admitted with 1. Successful ICD shock for sustained ventricular tachycardia 2. Clinically no active heart failure symptoms or any angina. 3. Patient has respiratory tract infection, probably as a result of syncope due to VT as patient was found laying on the floor for query length of time 4. monitor technician showed atrial fibrillation with very frequent PVCs. Currently patient is appropriately being treated for chest infection/pneumonia. She is also on medication for cardiomyopathy with beta-rosie and Entresto which she is tolerating well. Plan: To continue her current medication I recommend to start her on amiodarone given the history of VT requiring shock and going very frequent PVCs spite of being on beta-rosie. Amiodarone might be a short-term management for few weeks and long-term management with amiodarone can be decided in the office visit later on. Thanks for asking me to see this patient in consultation. Coding Level of Care Code Acute Code for [facility] Diagnoses Ventricular tachycardia I47.20 Cardiomyopathy I42.9 Time Spent (min) 45
[2023-03-12] MEDS: potassium chloride oral liq 20 mEq/15 mL UDC 40 MEQ PO (14:20)
[2023-03-12] MEDS: amiodarone 150 MG/100 ML PREMIX 400 MG IV (18:45)
[2023-03-12] MEDS: doxycycline 100 mg Tablet PO (18:47)
[2023-03-12] MEDS: acetaminophen 500 mg Tablet PO (22:46)
[2023-03-13] VITALS (22 sets, daily range): BP systolic 78–140; BP diastolic 49–83; PULSE 53–97; RESP 1–31; TEMP 36.4–37; O2SAT 92–96
[2023-03-13] MEDS: sodium chloride 0.9% 250 ML IV (02:07)
[2023-03-13] MEDS: enoxaparin 40 mg/0.4 mL Syringe SUBCUT (02:53)
[2023-03-13] MEDS: cefTRIAXone 1,000 MG in sodium chloride 0.9% (plus) 50 ML 100 MG IV (02:53)
[2023-03-13 08:26] LABS: Alanine Aminotransferase 29 U/L (0-33); Albumin Level 2.5 g/dL (3.5-5.2); Alkaline Phosphatase 92 U/L (35-105); Anion Gap 11.9 (5-19); Aspartate Amino Transferase 47 U/L (0-32); Blood Urea Nitrogen 17 mg/dL (8-23); Calcium 8.2 mg/dL (8.5-10.5); Carbon Dioxide 25 mmol/L (22-29); Chloride 102 mmol/L (98-107); Glucose 127 mg/dL (65-115); Magnesium 1.8 mg/dL (1.7-2.3); Osmolality Calculated 283 mOsm/kg (285-295); Potassium 3.9 mmol/L (3.5-5.1); Sodium 135 mmol/L (136-145); Total Bilirubin 0.3 mg/dL (0.15-1.2); Total Protein 5.5 g/dL (6.6-8.7)
[2023-03-13 09:19] LABS: Basophils # 0.1 10^3/uL (0.0-0.1); Basophils % 0.3 %; Eosinophils % 0.2 %; Hematocrit 38.1 % (36-47); Lymphocytes # 1.4 10^3/uL (0.8-4.8); Lymphocytes % 8.1 %; Mean Corpuscular HGB Conc 33.1 g/dL (30-55); Mean Corpuscular Hemoglobin 31.7 pg (27-33); Mean Platelet Volume 12.5 fL (7.4-10.4); Monocytes % 5.8 %; Neutrophils # 14.47 10^3/uL (1.8-7.7); Neutrophils % 85.1 %; Nucleated Red Blood Cells % 0 %; Platelet Count 209 10^3/cmm (157-399); Red Blood Count 3.97 10^6/uL (3.85-5.65); Red Cell Distribution Width 13.2 % (12.1-15.1)
[2023-03-13] MEDS: sennosides-docusate Tablet 1 TAB PO (09:25)
[2023-03-13] MEDS: aspirin 81 mg EC Tablet PO (09:25)
[2023-03-13] MEDS: amiodarone 200 mg Tablet PO ×2 (09:25→18:31)
[2023-03-13] MEDS: doxycycline 100 mg Tablet PO ×2 (09:25→18:32)
[2023-03-13] MEDS: FUROsemide 20 mg Tablet PO (09:25)
[2023-03-13] MEDS: metoprolol succinate ER (24 HR) 25 mg Tablet 50 MG PO (09:25)
--- NOTE | 2023-03-13 09:45 | PC.CHAP ---
Pastoral Care Encounter/Spiritual Assessment Type of Contact [] Declined desk maker visit [] Patient/Family/Request visit [] Outpatient visit [] Follow-up visit [] Physician referral [] Code/Alert [x] Routine visit [] Staff referral [] Actively dying [] Patient sleeping [] Family support [] [] Out of room [] Palliative care [] [] Receiving care in room [] Pre-surgical visit [] Trauma [] Long length of stay [] ICU visit [] Other: Relational/Emotional Strength [x] Patient feels connected with others/family/visitors/staff [] Distress [] Loneliness/isolation [] Abandonment Spirituality of Patient [] Person of Kassandra [] Attends Synagogue of their Kassandra [x] Believes in Prayer [] Reads Bible or Faith materials [] There are Spiritual issues to be addressed Cook Barbecue Interventions [x] Prayer [x Active listening [] Non-anxious presence [x] Spiritual/emotional support [] Crisis/trauma care [] Spiritual counseling [] Bereavement support [] Provided bereavement packet [] Provided Bible/devotional materials [] Provided toy/stuffed animal, coloring book to patient or family member [] Provided Communion [] Anointing/[place] [] Salvation [x] Completed spiritual assessment [] Other: Impact on Illness or Injury [] Angry [] Fearful [] Anxious [] Often cries [] Exhaustion [] Unable to work [] Unable to attend nondenominational [] Unable to walk/stand [] Unable to read [] Unable to drive [] Unable to eat/drink [] Unable to sleep [] Unable to be with family [] Patient intubated [] Other: Summary Time spent with patient 5 min
--- NOTE | 2023-03-13 12:23 | P.PN_ITS ---
Subjective 2 Subjective: Lorie had quite a bit of arrhythmias last night. At some point they turned the amiodarone off. She denies any complaints this morning. She is still wishing to go home with family when appropriate. She states she still has little cough. Medications: Reviewed: Yes Vitals/I&O/Wt Last Vital Signs Temp 97.8 F 03/13/23 08:53 Pulse 67 03/13/23 08:53 Resp 20 H 03/13/23 08:53 BP 140/78 03/13/23 08:53 Pulse Ox 94 03/13/23 08:53 O2 Del Method Room Air 03/13/23 08:53 O2 Flow Rate 2 03/12/23 01:20 03/12/23 03/13/23 03/13/23 22:59 06:59 14:59 Intake Total 100 / 100 252.778 / 352.778 Balance 100 / 100 252.778 / 352.778 Weight last 48 hrs Weight 49.442 kg Physical Exam 2 Narrative: General exam is a conversant white female, in no distress Neck is supple no lymphadenopathy thyromegaly Cardiovascular regular rate and rhythm, no murmur Lungs clear Abdomen is soft nontender Extremities no cyanosis clubbing or edema Data 03/13/23 04:00 03/13/23 04:00 Micro: Microbiology 03/12/23 01:30 Urine Culture - Preliminary Urine,Clean Catch 03/12/23 00:35 Blood Culture - Preliminary Blood NEGATIVE TO DATE 03/12/23 00:32 Blood Culture - Preliminary Blood NEGATIVE TO DATE A&P Assessment and plan (1) Pneumonia: Patient presents with pneumonia Placed on Zithromax and Rocephin I changed her to doxycycline, and Rocephin has continued. Sputum culture pending COVID and influenza negative White blood cell count slowly decreasing (2) Heart failure, left, with LVEF <=30%: Patient with past history of heart failure Avoid excessive fluids Blood pressure was somewhat low on arrival. This is improved. Production Ski Repairer increase metoprolol, to help with arrhythmias. (3) Ventricular tachycardia: Patient with past history of ventricular tachycardia, defibrillator and pacemaker placement Defibrillator evaluation demonstrated ventricular tachycardia, for which she received cardioversion by her device. She has had some nonsustained ventricular tachycardia overnight. Amiodarone was started yesterday IV. Cardiology has recommended this be continued p.o. currently, and amiodarone increased. (4) Acute cystitis: Patient with evidence of UTI on admission Continue Rocephin Await urine culture Plan Other medical problems as listed in past medical history Lovenox for DVT prophylaxis Attestations 2 Medical Necessity Statement*: Patient needs continued hospitalization for IV antibiotics related to pneumonia, UTI as well as adjustment of medications for arrhythmia. Diagnoses Pneumonia J18.9 Heart failure, left, with LVEF <=30% I50.1 Ventricular tachycardia I47.20 Acute cystitis N30.00 Time Spent (min) 25
[2023-03-14] VITALS (10 sets, daily range): BP systolic 97–124; BP diastolic 53–74; PULSE 60–87; RESP 18–25; TEMP 36.3–37.1; O2SAT 92–95
[2023-03-14] MEDS: cefTRIAXone 1,000 MG in sodium chloride 0.9% (plus) 50 ML 100 MG IV (02:46)
[2023-03-14] MEDS: enoxaparin 40 mg/0.4 mL Syringe SUBCUT (02:46)
[2023-03-14 04:46] LABS: Basophils # 0.1 10^3/uL (0.0-0.1); Basophils % 0.3 %; Eosinophils # 0.1 10^3/uL (0.0-0.8); Eosinophils % 0.6 %; Hematocrit 38.2 % (36-47); Lymphocytes # 1.1 10^3/uL (0.8-4.8); Lymphocytes % 6.1 %; Mean Corpuscular HGB Conc 31.9 g/dL (30-55); Mean Corpuscular Hemoglobin 30.1 pg (27-33); Mean Corpuscular Volume 94.3 fl (85-98); Mean Platelet Volume 11.4 fL (7.4-10.4); Monocytes # 0.7 10^3/uL (0.2-0.9); Neutrophils % 88.3 %; Nucleated Red Blood Cells % 0 %; Platelet Count 252 10^3/cmm (157-399); Red Blood Count 4.05 10^6/uL (3.85-5.65)
[2023-03-14 05:05] LABS: Anion Gap 11.4 (5-19); Blood Urea Nitrogen 16 mg/dL (8-23); Calcium 8.5 mg/dL (8.5-10.5); Carbon Dioxide 26 mmol/L (22-29); Chloride 102 mmol/L (98-107); Glucose 142 mg/dL (65-115); Magnesium 1.7 mg/dL (1.7-2.3); Osmolality Calculated 286 mOsm/kg (285-295); Potassium 3.4 mmol/L (3.5-5.1); Sodium 136 mmol/L (136-145)
--- NOTE | 2023-03-14 07:20 | XRR_ITS ---
PROCEDURE INFORMATION: Exam: XR Chest Exam date and time: 03/14/2023 8:27 AM Age: 77 years old Clinical indication: Condition or disease; Lung condition and disease; Pneumonia; Prior surgery; Surgery date: 6+ months; Surgery type: Lumpectomy; Additional info: Follow up pneumonia TECHNIQUE: Imaging protocol: Radiologic exam of the chest. Views: 1 view. COMPARISON: CR (CHEST, ) 03/12/2023 12:35 AM FINDINGS: Tubes, catheters and devices: There is a dual-lead AICD with leads positioned in the right atrium and right ventricle. Lungs: There is ill-defined opacity in the right lower lung obscuring the right heart border, similar to the findings on 03/12/2023 allowing for differences in patient position. Left lung is clear. Pleural spaces: No pneumothorax. No large effusion. Heart/Mediastinum: There is moderate enlargement of the cardiac silhouette. Bones/joints: Bones are unremarkable. XR/XR chest 1V portable [id number] IMPRESSION: Persistent right lower lung consolidation, similar to 03/12/2023 suspicious for pneumonia.
--- NOTE | 2023-03-14 07:40 | P.PN_ITS ---
Subjective 2 Subjective: Lorie reports she is doing okay. She believes she may have a little cough. She denies any pain. She denies any difficulty with urination. Medications: Reviewed: Yes Vitals/I&O/Wt Last Vital Signs Temp 98.6 F 03/14/23 07:28 Pulse 63 03/14/23 07:28 Resp 23 H 03/14/23 07:28 BP 124/74 03/14/23 07:28 Pulse Ox 92 03/14/23 07:28 O2 Del Method Room Air 03/14/23 07:28 O2 Flow Rate 2 03/12/23 01:20 03/13/23 03/14/23 03/14/23 22:59 06:59 14:59 Intake Total 50 / 50 Balance 50 / 50 Physical Exam 2 Narrative: General exam is a conversant white female, in no distress Neck is supple no lymphadenopathy thyromegaly Cardiovascular regular rate and rhythm, no murmur. Frequent premature beats. Telemetry reviewed. Lungs clear Abdomen is soft nontender Extremities no cyanosis clubbing or edema Data 03/14/23 04:00 03/14/23 04:00 Micro: Microbiology 03/12/23 01:30 Urine Culture - Preliminary Urine,Clean Catch A&P Assessment and plan (1) Pneumonia: Patient presents with pneumonia Placed on Zithromax and Rocephin I changed her to doxycycline, and Rocephin has continued. Sputum culture pending COVID and influenza negative Check MRSA PCR White blood cell count still significantly elevated. Repeat chest x-ray. (2) Heart failure, left, with LVEF <=30%: Patient with past history of heart failure Avoid excessive fluids Blood pressure was somewhat low on arrival. This is improved. Mathematical Scientist increase metoprolol, to help with arrhythmias. (3) Ventricular tachycardia: Patient with past history of ventricular tachycardia, defibrillator and pacemaker placement Defibrillator evaluation demonstrated ventricular tachycardia, for which she received cardioversion by her device. . Cardiology has recommended this be continued p.o. currently, and patient is currently on amiodarone 200 mg twice daily. She continues to have frequent PVCs and runs of nonsustained ventricular tachycardia. Will go ahead and supplement magnesium as it is low end of normal. (4) Acute cystitis: Patient with evidence of UTI on admission Continue Rocephin Urine culture negative to date Check bladder scan Plan Other medical problems as listed in past medical history Lovenox for DVT prophylaxis Attestations 2 Medical Necessity Statement*: Please continue hospitalization for IV antibiotics secondary to pneumonia with failure of white blood cell count to improve, and this patient with persistent arrhythmias with need for close monitoring on amiodarone. Diagnoses Pneumonia J18.9 Heart failure, left, with LVEF <=30% I50.1 Ventricular tachycardia I47.20 Acute cystitis N30.00 Time Spent (min) 24
[2023-03-14] MEDS: doxycycline 100 mg Tablet PO ×2 (08:31→17:11)
[2023-03-14] MEDS: magnesium sulfate premix 1 GM/100 ML PIGGYBACK IV (08:32)
[2023-03-14] MEDS: aspirin 81 mg EC Tablet PO (08:32)
[2023-03-14] MEDS: sennosides-docusate Tablet 1 TAB PO (08:32)
[2023-03-14] MEDS: amiodarone 200 mg Tablet PO (08:32)
[2023-03-14] MEDS: FUROsemide 20 mg Tablet PO (08:32)
[2023-03-14] MEDS: metoprolol succinate ER (24 HR) 25 mg Tablet 50 MG PO (10:24)
[2023-03-14] MEDS: potassium chloride oral liq 20 mEq/15 mL UDC 40 MEQ PO ×2 (10:24→14:42)
--- NOTE | 2023-03-14 11:02 | P.PN_ITS ---
Subjective 2 Subjective: Ms. Cordero the 77-year-old lady with ischemic cardiomyopathy, with a ICD in place who was being currently treated for pneumonia as well as possible UTI. During this illness she had an episode of sustained VT at home converted to sinus rhythm with single ICD shock. I reviewed the nuclear monitoring technician for last 24 hours. Overnight she was doing fine however this morning she started having and nonsustained runs of VT up to 10-15 beats. Clinically she is asymptomatic from cardiac point of view. I noted her lower respiratory tract infection might have worsened with the increasing white cell as well as some worsening of right basal infiltrate. Currently she has been on metoprolol as well as amiodarone which was started 2 days ago. Medications: Medication Review Details: Medicine reviewed and adjusted Vitals/I&O/Wt Last Vital Signs Temp 98.6 F 03/14/23 07:28 Pulse 72 03/14/23 08:36 Resp 18 03/14/23 08:36 BP 124/74 03/14/23 07:28 Pulse Ox 92 03/14/23 08:36 O2 Del Method Room Air 03/14/23 08:36 O2 Flow Rate 2 03/12/23 01:20 03/13/23 03/14/23 03/14/23 22:59 06:59 14:59 Intake Total 50 / 50 100 / 100 Balance 50 / 50 100 / 100 Physical Exam 2 Narrative: Laying comfortably on her bed. No apparent respiratory distress. Vitals reveal blood pressure 96 to 115 systolic. Her current heart rate is in 60-70 sinus rhythm with intermittent AV pacing. JV JVP is not raised HENMT exam unremarkable. Lungs auscultation revealed decreased air entry at the right base with coarse Rales. Heart exam normal first and second heart sounds with irregular pulse PVCs Abdomen soft nontender bowel sounds audible. Lower extremity: Unremarkable no pedal edema. Data 03/14/23 04:00 03/14/23 04:00 Micro: Microbiology 03/12/23 01:30 Urine Culture - Final Urine,Clean Catch A&P Assessment and plan (1) Cardiomyopathy: (2) S/P implantation of automatic cardioverter/defibrillator (AICD): (3) Pneumonia: Plan 69-year-old female with a cardiomyopathy, status post ICD in place Currently being treated for pneumonia. She continues to have intermittent runs of nonsustained VT. Clinically no heart failure, no angina. She is euvolemic. The most likely cause of her none sustained VT is related to worsening respiratory status, right basal pneumonia in the setting of already significant known cardiomyopathy. Plan: As amiodarone is not helping to calm down the PVCs, therefore I am going to discontinue amiodarone and increasing the dose of metoprolol to 50 mg XL once a day. Attestations 2 Medical Necessity Statement*: Pneumonia VT runs Coding Level of Care Code Acute Code for [facility] Diagnoses Cardiomyopathy I42.9 S/P implantation of automatic cardioverter/defibrillator (AICD) Z95.810 Pneumonia J18.9 Time Spent (min) 25
--- NOTE | 2023-03-14 18:44 | PC.NURSE ---
03/13 01:42: Lorie Wong room 104 is on an amio gtt running at 0.5 mg/min has a bp of 87/53 and her hr has slowed down and running in low 60. Dr Damico notified and was instructed to hold amio gtt and give 250 mL bolus of NS. Amio gtt paused and bolus given. BP improved, HR still in 60-70. Dr Damico notified and asked if he would like for me to continue hold on amio gtt. He responded yes .
[2023-03-15] VITALS (9 sets, daily range): BP systolic 118–135; BP diastolic 52–69; PULSE 61–74; RESP 16–21; TEMP 36.5–37; O2SAT 93–97
[2023-03-15] MEDS: enoxaparin 40 mg/0.4 mL Syringe SUBCUT (03:36)
[2023-03-15] MEDS: cefTRIAXone 1,000 MG in sodium chloride 0.9% (plus) 50 ML 100 MG IV (03:36)
[2023-03-15 04:45] LABS: Basophils % 0.2 %; Eosinophils # 0.2 10^3/uL (0.0-0.8); Eosinophils % 1.3 %; Lymphocytes # 1.2 10^3/uL (0.8-4.8); Mean Corpuscular HGB Conc 32.2 g/dL (30-55); Mean Corpuscular Hemoglobin 30.5 pg (27-33); Mean Corpuscular Volume 94.9 fl (85-98); Mean Platelet Volume 10.9 fL (7.4-10.4); Monocytes # 0.6 10^3/uL (0.2-0.9); Monocytes % 4.6 %; Neutrophils # 11.46 10^3/uL (1.8-7.7); Neutrophils % 84.2 %; Nucleated Red Blood Cells % 0 %; Platelet Count 306 10^3/cmm (157-399); Red Cell Distribution Width 13.2 % (12.1-15.1); White Blood Count 13.61 10^3/uL (3.29-11.43)
[2023-03-15 05:06] LABS: Anion Gap 13.4 (5-19); Blood Urea Nitrogen 19 mg/dL (8-23); Calcium 9.3 mg/dL (8.5-10.5); Carbon Dioxide 26 mmol/L (22-29); Chloride 103 mmol/L (98-107); Glucose 108 mg/dL (65-115); Magnesium 1.8 mg/dL (1.7-2.3); Osmolality Calculated 289 mOsm/kg (285-295); Potassium 4.4 mmol/L (3.5-5.1); Sodium 138 mmol/L (136-145)
--- NOTE | 2023-03-15 09:31 | P.DS_ITS ---
Discharge Providers Date of Admission: 03/12/23 02:18 Date of Discharge: March 15, 2023 Attending Provider at Admission: Satnam Damico MD Attending Provider at Discharge: Chip Banda MD Diagnoses at Discharge Discharge Diagnosis (1) Cardiomyopathy: Status: Acute (2) S/P implantation of automatic cardioverter/defibrillator (AICD): Status: Acute (3) Pneumonia: Status: Acute Reason for Visit Reason for Visit: WEAKNESS Hospital Course Hospital Course Lorie is a 77-year-old white female who presented to the hospital following a fall, and for weakness. She was found to have pneumonia. On evaluation of her defibrillator, she was also found to have been defibrillated for sustained ventricular tachycardia. Cardiology evaluated the patient, tried amiodarone briefly, but this seemed to cause more arrhythmias. Metoprolol was ultimately increased, which helped significantly. She was treated with doxycycline and Rocephin for pneumonia. There was also concern of UTI on urinalysis. At time of discharge she was afebrile. White blood cell count was significantly improved. She had been afebrile. She was not requiring oxygen. It was thought she could discharge home on oral antibiotics with home health, and follow-up with cardiology and her primary care provider. Patient was able to ask questions, and agreed with the plan. Urine culture at discharge was no growth. She was tested for COVID and flu which were negative. Physical Exam Narrative: General exam no distress Neck is supple Cardiovascular regular rate and rhythm Lungs clear but with diminished breath sounds at the bases Abdomen is soft Extremities no cyanosis, edema Discharge Data Studies Completed and Pending Completed Studies During Hospitalization Category Date Time Status CT abdomen renal stone [CT kidney stone [id number]] Stat Cat Scan 03/12/23 08:[address] head wo con* [id number] Stat Cat Scan 03/11/23 23:59 Completed XR chest 1V portable [id number] Routine Exams 03/14/23 07:20 Completed XR chest 1V portable [id number] Stat Exams 03/11/23 23:59 Completed Pending at discharge Category Date Time Status Blood Culture Stat Lab 03/11/23 23:59 Results MRSA [Methicillin Resistant S.aureu] Routine Lab 03/14/23 07:20 Ordered Sputum Culture and Gram Stain Routine Lab 03/12/23 02:24 Uncollected Radiology Impressions Head CT 03/11/23 23:59 IMPRESSION: No acute intracranial abnormality. Chest X-Ray 03/14/23 07:20 IMPRESSION: Persistent right lower lung consolidation, similar to 03/12/2023 suspicious for pneumonia. Laboratory Results WBC 13.61 10^3/uL (3.29-11.43) H 03/15/23 04:00 RBC 3.90 10^6/uL (3.85-5.65) 03/15/23 04:00 Hgb 11.90 g/dL (11.27-16.99) 03/15/23 04:00 Hct 37.0 % (36-47) 03/15/23 04:00 MCV 94.9 fl (85-98) 03/15/23 04:00 MCH 30.5 pg (27-33) 03/15/23 04:00 MCHC 32.2 g/dL (30-55) 03/15/23 04:00 RDW 13.2 % (12.1-15.1) 03/15/23 04:00 Plt Count 306 10^3/cmm (157-399) 03/15/23 04:00 MPV 10.9 fL (7.4-10.4) H 03/15/23 04:00 Neut % (Auto) 84.2 % 03/15/23 04:00 Lymph % (Auto) 9.0 % 03/15/23 04:00 Colbert % (Auto) 4.6 % 03/15/23 04:00 Eos % (Auto) 1.3 % 03/15/23 04:00 Baso % (Auto) 0.2 % 03/15/23 04:00 Neut # (Auto) 11.46 10^3/uL (1.8-7.7) H 03/15/23 04:00 Lymph # (Auto) 1.2 10^3/uL (0.8-4.8) 03/15/23 04:00 Colbert # (Auto) 0.6 10^3/uL (0.2-0.9) 03/15/23 04:00 Eos # (Auto) 0.2 10^3/uL (0.0-0.8) 03/15/23 04:00 Baso # (Auto) 0.0 10^3/uL (0.0-0.1) 03/15/23 04:00 Nucleated RBC % (auto) 0 % 03/15/23 04:00 Nucleated RBCs # 0.0 /100WBC 03/15/23 04:00 PT 16.70 SECONDS (12.1-14.9) H 03/12/23 00:35 INR 1.30 (0.8-1.2) H 03/12/23 00:35 Sodium 138 mmol/L (136-145) 03/15/23 04:00 Potassium 4.4 mmol/L (3.5-5.1) 03/15/23 04:00 Chloride 103 mmol/L (98-107) 03/15/23 04:00 Carbon Dioxide 26 mmol/L (22-29) 03/15/23 04:00 Anion Gap 13.4 (5-19) 03/15/23 04:00 BUN 19 mg/dL (8-23) 03/15/23 04:00 Creatinine 0.5 mg/dL (0.5-0.9) 03/15/23 04:00 GFR Calculation Not Reportable 03/15/23 04:00 Glucose 108 mg/dL (65-115) 03/15/23 04:00 POC Glucose 173 mg/dL (70-110) H 03/12/23 00:22 Estimat Average Glucose 111 03/12/23 04:26 Hemoglobin A1c 5.5 % (4.0-6.0) 03/12/23 04:26 Calculated Osmolality 289 mOsm/kg (285-295) 03/15/23 04:00 Lactic Acid 1.4 mmol/L (0.5-2.2) 03/12/23 00:35 Calcium 9.3 mg/dL (8.5-10.5) 03/15/23 04:00 Phosphorus 2.1 mg/dL (2.5-4.5) L 03/12/23 04:26 Magnesium 1.8 mg/dL (1.7-2.3) 03/15/23 04:00 Total Bilirubin 0.3 mg/dL (0.15-1.2) 03/13/23 04:00 AST 47 U/L (0-32) H 03/13/23 04:00 ALT 29 U/L (0-33) 03/13/23 04:00 Alkaline Phosphatase 92 U/L (35-105) 03/13/23 04:00 Creatine Kinase 292 U/L (26-192) H 03/12/23 00:35 C-Reactive Protein 216.9 mg/L (0.0-4.9) H 03/12/23 04:26 NT-Pro-B Natriuret Pep 5580 pg/mL (0-450) H 03/12/23 00:35 Total Protein 5.5 g/dL (6.6-8.7) L 03/13/23 04:00 Albumin 2.5 g/dL (3.5-5.2) L 03/13/23 04:00 Globulin 3.0 g/dL (1.3-4.6) 03/13/23 04:00 Vitamin B12 601 pg/mL (232-1245) 03/12/23 04:26 TSH 0.49 uIU/mL (0.27-4.20) 03/12/23 04:26 Urine Color Yellow (Yellow) 03/12/23 01:30 Urine Appearance Cloudy (CLEAR) A 03/12/23 01:30 Urine pH 5 (5-7) 03/12/23 01:30 Ur Specific Ruth 1.020 (1.005-1.030) 03/12/23 01:30 Urine Protein 2+ (Negative) H 03/12/23 01:30 Urine Glucose (UA) 1+ (Normal) H 03/12/23 01:30 Urine Ketones 1+ (Negative) H 03/12/23 01:30 Urine Blood 3+ (Negative) H 03/12/23 01:30 Urine Nitrate Negative (Negative) 03/12/23 01:30 Urine Bilirubin 1+ (Negative) H 03/12/23 01:30 Urine Urobilinogen 4 mg/dL (Negative) H 03/12/23 01:30 Ur Leukocyte Esterase 2+ (Negative) H 03/12/23 01:30 Urine RBC >100 /hpf (0-2) H 03/12/23 01:30 Urine WBC >100 /hpf (0-5) H 03/12/23 01:30 Ur Squamous Epith Cells 5-10 /hpf (0-5) H 03/12/23 01:30 Amorphous Sediment 3+ /hpf 03/12/23 01:30 Urine Bacteria 2+ /hpf (NONE) H 03/12/23 01:30 Fine Granular Casts 10-15 /lpf H 03/12/23 01:30 Influenza Type A Ag negative (Negative) 03/12/23 00:45 Influenza Type B Ag negative (Negative) 03/12/23 00:45 SARS-CoV-2 Ag (Rapid) negative (Negative) 03/12/23 03:15 Vitals Last Vital Signs Temp 98.6 F 03/15/23 07:26 Pulse 74 03/15/23 08:00 Resp 16 03/15/23 08:00 BP 135/69 03/15/23 07:26 Pulse Ox 97 03/15/23 08:00 O2 Del Method Room Air 03/15/23 08:00 O2 Flow Rate 2 03/12/23 01:20 Discharge Plan Discharge Patient Disposition: Home Condition: Stable Prescriptions: New metoprolol succinate 25 mg Tablet Extended Release 24 Hr 50 mg PO DAILY Qty: 30 0RF doxycycline monohydrate 100 mg Tablet 100 mg PO BID Qty: 10 0RF cefdinir 300 mg capsule 300 mg PO BID 5 Days Qty: 10 0RF Continued nitroglycerin 0.4 mg tablet, sublingual 0.4 mg SUBLINGUAL Q5M PRN (Reason: Chest Pain) Qty: 25 6RF Rx Instructions: do not exceed 3 doses per episode Entresto 24-26 mg tablet 1 tab PO BID Aspir-81 81 mg Tablet,Delayed Release (Dr/Ec) 81 mg PO DAILY Discontinued amoxicillin 875 mg tablet 875 mg PO BID Qty: 20 0RF metoprolol succinate 25 mg tablet extended release 24 hr 25 mg PO DAILY Discharge Orders: Discharge Order (Routine); Ordered 03/15/23 Ordered By: Chip Banda Referrals: Sarah Joe FNP [Nurse Practitioner] - 7-10 days (arrhythmia) William Arredondo MD [Occupational Therapist] - 4-7 days Discharge Diet: Cardiac Discharge Activity: Increase activity as tolerated Patient Instructions: Metoprolol (By mouth) (Lopressor, Toprol XL), Doxycycline (By mouth) (Acticlate, Adoxa, Avidoxy, Monodox, Doryx), Cefdinir (By mouth) (Omnicef), Heart Failure (DC), CHF Stoplight, Opioid Safety Activity Restrictions/Additional Instructions: Take all medicine as prescribed Follow-up with cardiology 17 days Follow-up with your primary care provider 3 to 5 days Return for any concerns Discharge Attestations Time Spent in Discharge Care*: greater than 30 min Status at Discharge: Cognitive status at discharge: cognitively intact , Behavioral status at discharge: cooperative , Quality Metrics Clinical Quality Measures [ No reported AMI, CVA or VTE this stay] Coding Level of Care Code 73073 Total time (in minutes) for Discharge: 34 Diagnoses Cardiomyopathy I42.9 S/P implantation of automatic cardioverter/defibrillator (AICD) Z95.810 Pneumonia J18.9
[2023-03-15] MEDS: metoprolol succinate ER (24 HR) 25 mg Tablet 50 MG PO (10:54)
[2023-03-15] MEDS: FUROsemide 20 mg Tablet PO (10:54)
[2023-03-15] MEDS: aspirin 81 mg EC Tablet PO (10:54)
[2023-03-15] MEDS: sennosides-docusate Tablet 1 TAB PO (10:55)
[2023-03-15] MEDS: doxycycline 100 mg Tablet PO (10:55)
--- NOTE | 2023-03-15 15:15 | PC.NURSE ---
Discharge Note Patient discharged to [] via [] accompanied by []. Discharge instructions reviewed with patient and/or printing supplies sales representative. Mobile pharmacy medications and/or prescriptions provided. Belongings/home medications returned.
--- NOTE | 2023-03-15 15:47 | PC.NURSE ---
Discharge Note Patient discharged to [home] via [w/c to POV] accompanied by [friend]. Discharge instructions reviewed with patient and/or administrative representative. Mobile pharmacy medications and/or prescriptions provided. Belongings/home medications returned.
== END 2023-03-15 15:10 | disposition home health service (06) | DRG 193 ==
LOC: ER 03-12 02:30 → ER IP 03-12 03:06 → MEDSURG 03-12 05:09 → CSU 03-12 17:01
PROVIDERS: Admitting Provider Internal Medicine; Emergency Provider Emergency Medicine; Visit Provider Internal Medicine
DX: J18.9 Pneumonia, unspecified organism (principal); I50.23 Acute on chronic systolic (congestive) heart failure; I47.20 Ventricular tachycardia, unspecified; N30.00 Acute cystitis without hematuria; F41.9 Anxiety disorder, unspecified; I25.5 Ischemic cardiomyopathy; Z95.810 Presence of automatic (implantable) cardiac defibrillator; I49.3 Ventricular premature depolarization; I48.91 Unspecified atrial fibrillation; Z20.822 Contact with and (suspected) exposure to COVID-19; I11.0 Hypertensive heart disease with heart failure
CPT/HCPCS: 36415; 36416; 51798; 70450; 71045; 74176; 80048; 80053; 81001; 82550; 82607; 82962; 83036; 83605; 83735; 83880; 84100; 84443; 85025; 85610; 86140; 87040; 87086; 87426; 87804; 92610; 93005; 93010; 96365; 96367; 96372; 97110; 97161; 97530; 99285; J0283; J0456; J0696; J1650; J3475; J7030; J7050

== ENCOUNTER → 2023-03-27 09:42 | Outpatient (BNVA) | payer MEDICARE, SELFPAY | PROVIDERS: Visit Provider Nurse Practitioner Family | DX: I47.20 Ventricular tachycardia, unspecified (principal); Z95.0 Presence of cardiac pacemaker | CPT/HCPCS: 93288; 99213 ==

== ENCOUNTER → 2023-07-24 14:42 | Outpatient (BNVA) | payer MEDICARE, SELFPAY | PROVIDERS: Visit Provider Internal Medicine Cardiovascular Disease | DX: R06.02 Shortness of breath (principal); I42.8 Other cardiomyopathies; I48.20 Chronic atrial fibrillation, unspecified; Z95.810 Presence of automatic (implantable) cardiac defibrillator; I10 Essential (primary) hypertension; I25.10 Atherosclerotic heart disease of native coronary artery without angina pectoris | CPT/HCPCS: 36415; 80048; 83880; 99214 ==

== ENCOUNTER 2023-08-17 09:38 | Outpatient (CLI) | payer MEDICARE, SELFPAY ==
[2023-08-17 10:42] LABS: Blood Urea Nitrogen 17 mg/dL (8-23); Calcium 9.1 mg/dL (8.5-10.5); Carbon Dioxide 32 mmol/L (22-29); Chloride 104 mmol/L (98-107); Glucose 118 mg/dL (65-115); NT Pro B Type Natriuretic Pept 897 pg/mL (0-450); Osmolality Calculated 297 mOsm/kg (285-295); Sodium 142 mmol/L (136-145)
== END 2023-08-17 09:39 | disposition home or self-care (01) ==
LOC: LAB 09:40
PROVIDERS: Internal Medicine; PCP Family Medicine; Visit Provider Family Medicine
DX: I50.1 Left ventricular failure, unspecified (principal); I42.8 Other cardiomyopathies; I10 Essential (primary) hypertension
CPT/HCPCS: 36415; 80048; 83880

== ENCOUNTER → 2024-01-02 12:39 | Outpatient (BNVA) | payer MEDICARE, SELFPAY | PROVIDERS: PCP Family Medicine; Visit Provider Internal Medicine Cardiovascular Disease | DX: Z45.02 Encounter for adjustment and management of automatic implantable cardiac defibrillator (principal) | CPT/HCPCS: 93296 ==

== ENCOUNTER → 2024-01-21 15:23 | Outpatient (BNVA) | payer MEDICARE, SELFPAY | PROVIDERS: PCP Nurse Practitioner Family; Visit Provider Nurse Practitioner Family | DX: S99.911A Unspecified injury of right ankle, initial encounter (principal); W19.XXXA Unspecified fall, initial encounter; M25.571 Pain in right ankle and joints of right foot; M25.471 Effusion, right ankle; Y92.009 Unspecified place in unspecified non-institutional (private) residence as the place of occurrence of the external cause | CPT/HCPCS: 73590; 73610 ==

== ENCOUNTER → 2024-01-24 14:00 | Outpatient (BNVA) | payer MEDICARE, SELFPAY | PROVIDERS: PCP Nurse Practitioner Family; Visit Provider Internal Medicine Cardiovascular Disease | DX: Z95.810 Presence of automatic (implantable) cardiac defibrillator (principal); I42.8 Other cardiomyopathies; I11.0 Hypertensive heart disease with heart failure; I50.1 Left ventricular failure, unspecified; Z87.898 Personal history of other specified conditions | CPT/HCPCS: 99214 ==

== ENCOUNTER → 2024-06-25 09:02 | Outpatient (BNVA) | payer MEDICARE, SELFPAY | PROVIDERS: PCP Nurse Practitioner Family; Visit Provider Internal Medicine | DX: Z45.02 Encounter for adjustment and management of automatic implantable cardiac defibrillator (principal) | CPT/HCPCS: 93296 ==

== ENCOUNTER 2024-07-31 06:48 | Emergency (ER) | payer MEDICARE, SELFPAY ==
[2024-07-31 06:50] VITALS: BP 98/55; PULSE 72; RESP 16; TEMP 36.7; O2SAT 94; BMI 17.8
--- NOTE | 2024-07-31 06:55 | XR_ITS ---
WS: [id number] Portable AP upright chest, 07/31/2024 Clinical Data: dyspnea/cough Comparison: Portable chest, 03/14/2023 Findings: No nodules, masses or effusions are seen. The heart is enlarged. The pulmonary vascularity is not increased. No pneumonia or pneumothorax is seen. The diaphragms are flattened. The aortic arch and descending thoracic aorta show tortuosity. There is a 2-lead pacemaker in good position with the generator overlying the left lateral chest. There are monitor leads on the chest wall. XR/XR chest 1V portable [id number] Impression: 1. Cardiomegaly and atherosclerosis. 2. Hyperinflation.
--- NOTE | 2024-07-31 06:56 | ED_ITS ---
HPI - SOB/Dyspnea 2 General: Chief Complaint: Upper Respiratory Infection Stated Complaint: cough Time Seen by Provider: 07/31/24 06:55 History of Present Illness: HPI Narrative: 78-year-old female presents emergency ro om with cough. Patient does have a history of heart disease and has severe cardiomyopathy with an ejection fraction of less than 30%. Patient has had a mildly productive cough she has been on cefdinir it is not improving her symptoms. She denies any hemoptysis. She has some intermittent dizziness as well. She gets nauseous when she has coughing fits but denies any chest pain at this time. Associated symptoms: Deny abdominal pain, chest pain or fever(s) Related Data Home Medications ?Medication ?Instructions ?Recorded ?Confirmed aspirin 81 mg tablet,delayed 81 mg PO DAILY 03/12/23 0 07/31/24 release Previous Rx's ?Medication ?Instructions ?Recorded nitroglycerin 0.4 mg sublingual 0.4 mg sublingual Q5M PRN Chest 04/05/23 tablet Pain #25 tabs metoprolol succinate 25 mg 25 mg PO DAILY #180 tabs tablet,extended release 24 hr sacubitril 24 mg-valsartan 26 mg See Rx Instructions . Route 03/25/24 tablet (Entresto) .COMPLEX #180 tabs furosemide 20 mg tablet See Rx Instructions .Route 0 05/28/24 .COMPLEX #90 tabs cetirizine 10 mg tablet (Zyrtec) 10 mg PO DAILY PRN al lergy 07/04/24 symptoms #90 tabs fluticasone propionate 50 See Rx Instructions .Route 0 07/04/24 mcg/actuation nasal .COMPLEX #16 grams spray,suspension doxycycline hyclate 100 mg capsule 100 mg PO BID 10 da ys #20 caps 07/31/24 Allergies Allergy/AdvReac Type Severity Reaction Status Date / Time No Known Allergies Allergy Verified 07/31/24 07:05 Review of Systems 2 Const: Denies: fever(s) or chills Card: Denies: chest pain Resp: Reports: dyspnea GI: Denies: abdominal pain : Denies: dysuria, urinary frequency or urinary urgency Musc: Denies: neck pain or back pain Skin/Breast: Denies: rash PFSH ED 2 PFSH: Medical History Heart failure, left, with LVEF <=30% Arrhythmia Benign essential HTN Near syncope Cardiomyopathy Hx of chest pain Hypertension Anxiety Hx of cardiomyopathy Hx of viral pericarditis Hx of cardiac arrhythmia History of chronic fatigue Hx of essential hypertension Surgical History History of partial hysterectomy History of breast lump removal Family History Brother CAD (coronary artery disease) unknown age of onset Mother Dementia Father Diabetes Other Suicide Denies family history of Clotting disorder Chronic kidney disease (CKD) Anesthesia complication Bleeding disorder Lung disease Cancer Stroke Social History Smoking and tobacco/nicotine status: never used tobacco/nicotine Second hand smoke exposure: Yes Alcohol intake: never Substance/Drug Use: never Lives independently: Yes Household members: significant other Marital status: Life Partner Current gender identity: Female Special yennifer needs: No Agree to transfusion: Yes Physical Exam 2 Const: ORIENTATION/CONSCIOUSNESS: Yes awake, Yes oriented to person, Yes oriented to place and Yes oriented to time HENMT: COMMON NORMALS: normocephalic, atraumatic and hearing grossly normal bilaterally HEAD & SCALP: normocephalic and atraumatic Resp: COMMON NORMALS: normal respiratory effort, No retractions and No use of accessory muscles AUSCULTATION: crackles Cardio: COMMON NORMALS: regular rate, regular rhythm and No murmurs present (Cardio) RATE: regular rate RHYTHM: regular rhythm GI: COMMON NORMALS: Soft to palpation and No hepatosplenomegaly present A USCULTATION: Yes normoactive bowel sounds PALPATION: Yes Soft to palpation, No Tenderness to palpation present (GI), No Guarding due to palpation present (GI) and Yes No hepatosplenomegaly present Extremity: COMMON NORMALS: normal to inspection, capillary refill normal, no clubbing, cyanosis or edema, no calf tenderness and no pedal edema Neuro: SENSORIUM/ORIENTATION: Yes oriented to person, Yes oriented to place and Yes oriented to time Skin: COMMON NORMALS: no rashes or lesions noted GENERAL SKIN EXAM: no rashes or lesions noted Course 2 Vital Signs: Vital signs: Vital Signs Temperature 98.1 F 07/31/24 06:50 Pulse Rate 95 07/31/24 12:31 Respiratory Rate 16 07/31/24 06:50 Blood Pressure 128/60 07/31/24 12:31 Pulse Oximetry 97 07/31/24 12:31 Oxygen Delivery Me thod Room Air 07/31/24 06:50 MDM - SOB/Dyspnea Medical Decision Making Few base crackles. Patient does not appear to be fluid overloaded at this time chest x-ray unremarkable white count normal RSV flu and COVID are negative. Will switch her to doxycycline based on the fact that she still having a productive cough however follow-up with primary care doctor if not improving. Medical Records I reviewed the patient's medical records. Lab Data I reviewed the patient's lab results. 07/31/24 07:10 07/31/24 07:10 Labs/Radiology: Radiology Impressions Chest X-Ray 07/31/24 06:55 Impression: 1. Cardiomegaly and atherosclerosis. 2. Hyperinflation. Laboratory Results WBC 9.11 10^3/uL (3.29-11.43) 07/31/24 07:10 RBC 4.63 10^6/uL (3.85-5.65) 07/31/24 07:10 Hgb 13.80 g/dL (11.27-16.99) 07/31/24 07:10 Hct 42.3 % (36-47) 07/31/24 07:10 MCV 91.4 fl (85-98) 07/31/24 07:10 MCH 29.8 pg (27-33) 07/31/24 07:10 MCHC 32.6 g/dL (30-55) 07/31/24 07:10 RDW 13.0 % (12.1-15.1) 07/31/24 07:10 Plt Count 174 10^3/cmm (157-399) 07/31/24 07:10 MPV 9.9 fL (7.4-10.4) 07/31/24 07:10 Neut % (Auto) 86.6 % 07/31/24 07:10 Lymph % (Auto) 5.5 % 07/31/24 07:10 Chase % (Auto) 7.2 % 07/31/24 07:10 Eos % (Auto) 0.1 % 07/31/24 07:10 Baso % (Auto) 0.4 % 07/31/24 07:10 Neut # (Auto) 7.88 10^3/uL (1.8-7.7) H 07/31/24 07:10 Lymph # (Auto) 0.5 10^3/uL (0.8-4.8) L 07/31/24 07:10 Chase # (Auto) 0.7 10^3/uL (0.2-0.9) 07/31/24 07:10 Eos # (Auto) 0.0 10^3/uL (0.0-0.8) 07/31/24 07:10 Baso # (Auto) 0.0 10^3/uL (0.0-0.1) 07/31/24 07:10 Nucleated RBC % (auto) 0 % 07/31/24 07:10 Nucleated RBCs # 0.0 /100WBC 07/31/24 07:10 Sodium 140 mmol/L (136-145) 07/31/24 07:10 Potassium 3.6 mmol/L (3.5-5.1) 07/31/24 07:10 Chloride 98 mmol/L (98-107) 07/31/24 07:10 Carbon Dioxide 26 mmol/L (22-29) 07/31/24 07:10 Anion Gap 19.6 (5-19) H 07/31/24 07:10 BUN 23 mg/dL (8-23) 07/31/24 07:10 Creatinine 1.0 mg/dL (0.5-0.9) H 07/31/24 07:10 GFR Calculation Not Reportable 07/31/24 07:10 Glucose 134 mg/dL (65-115) H 07/31/24 07:10 Calculated Osmolality 296 mOsm/kg (285-295) H 07/31/24 07:10 Calcium 9.0 mg/dL (8.5-10.5) 07/31/24 07:10 Total Bilirubin 0.8 mg/dL (0.15-1.2) 07/31/24 07:10 AST 15 U/L (0-32) 07/31/24 07:10 ALT 8 U/L (0-33) 07/31/24 07:10 Alkaline Phosphatase 71 U/L (35-105) 07/31/24 07:10 Troponin T Baseline 29 ng/L (0-10) H 07/31/24 07:10 Troponin T 120 Minute 23.93 ng/L (0-10) H 07/31/24 09:24 Delta Troponin T -5.07 ABS# (0-10) L 07/31/24 09:24 Total Protein 7.1 g/dL (6.6-8.7) 07/31/24 07:10 Albumin 4.1 g/dL (3.5-5.2) 07/31/24 07:10 Globulin 3.0 g/dL (1.3-4.6) 07/31/24 07:10 Influenza A (PCR) Negative (Negative) 07/31/24 09:21 Influenza Type B (PCR) Negative (Negative) 07/31/24 09:21 RSV (PCR) Negative (Negative) 07/31/24 09:21 SARS-CoV-2 (PCR) Negative (Negative) 07/31/24 09:21 All radiology interpretation(s) finalized by discharge Discharge Plan Discharge Patient Disposition: Home Clinical Impression: Bronchitis Condition: Stable Prescriptions: New doxycycline hyclate 100 mg capsule 100 mg PO BID 10 Days Qty: 20 0RF No Action nitroglycerin 0.4 mg tablet, sublingual 0.4 mg SUBLINGUAL Q5M PRN (Reason: Chest Pain) Qty: 25 6RF Rx Instructions: do not exceed 3 doses per episode metoprolol succinate 25 mg tablet extended release 24 hr 25 mg PO DAILY Qty: 180 3RF Entresto 24-26 mg tablet See Rx Instructions .ROUTE .COMPLEX Qty: 180 2RF Dose Instruction: TAKE 1 TABLET BY MOUTH TWICE DAILY Rx Instructions: TAKE 1 TABLET BY MOUTH TWICE DAILY furosemide 20 mg tablet See Rx Instructions .ROUTE .COMPLEX Qty: 90 1RF Dose Instruction: TAKE ONE TABLET BY MOUTH DAILY NEEDED FOR weight gain Rx Instructions: TAKE ONE TABLET BY MOUTH DAILY NEEDED FOR weight gain fluticasone propionate 50 mcg/actuation spray,suspension See Rx Instructions .ROUTE .COMPLEX Qty: 16 2RF Dose Instruction: INSTILL 2 SPRAYS IN EACH NOSTRIL EVERY DAY Rx Instructions: INSTILL 2 SPRAYS IN EACH NOSTRIL EVERY DAY cetirizine [Zyrtec] 10 mg tablet 10 mg PO DAILY PRN (Reason: allergy symptoms) Qty: 90 1RF aspirin 81 mg Tablet,Delayed Release (Dr/Ec) 81 mg PO DAILY Discharge Orders: Discharge ED (Routine); Ordered 07/31/24 Ordered By: Donato Peters Referrals: Vanna Conde FNP-C [Primary Care Provider] - Discharge Diet: Usual diet Discharge Activity: Resume usual activity Patient Instructions: Opioid Safety, Pain Management Activity Restrictions/Additional Instructions: Thank you for choosing [facility] for your healthcare needs today. It is very important that you follow up as instructed or that you return to the Emergency Department should you have concerns or if your condition changes or worsens in any way. You were seen in the emergency room with complaints of cough and shortness of breath. Your laboratory tests did not show any significant abnormalities from your usual baseline. Chest x-ray did not show any acute changes. Recommend that you take a course of doxycycline 1 tablet twice a day for 10 days follow-up with your primary care doctor if not improved. Print Language: Latvian Coding Level of Care Code ED Welder Fabricator for Radha Vera
--- NOTE | 2024-07-31 07:02 | ECG_ITS ---
[employer] Test Date: 2024-07-31 Pat Name: Lorie Wong Department: Room: Gender: Female Comb Fixer: : 1945 Requested By: Donato Adhikari Order Number: [id number] Gelacio MD: Laura Valentine M.D. Measurements Intervals [place] Rate: 96 P: 0 AK: 0 QRS: 265 QRSD: 146 T: -38 QT: 402 QTc: 510 Interpretive Statements Possible atrial fibrillation with demand V pacing ELECTRONIC VENTRICULAR PACEMAKER -- CONTOUR ANALYSIS BASED ON INTRINSIC RHYTHM INTRAVENTRICULAR CONDUCTION DELAY [130+ ms QRS DURATION] ABNORMALITY IN I/aVL/V5/V6] Compared to ECG 03/12/2023 00:27:20 Intraventricular conduction delay now present Myocardial infarct finding now present Sinus rhythm no longer present Ventricular premature complex(es) no longer present ST (T wave) deviation no longer present Heavy baseline artifacts; Need to repeat the study. Electronically Signed On 08-01-2024 08:53:47 CDT by Laura Valentine M.D. [email or web address]
[2024-07-31 07:16] LABS: Basophils % 0.4 %; Eosinophils % 0.1 %; Hematocrit 42.3 % (36-47); Lymphocytes # 0.5 10^3/uL (0.8-4.8); Lymphocytes % 5.5 %; Mean Corpuscular HGB Conc 32.6 g/dL (30-55); Mean Corpuscular Hemoglobin 29.8 pg (27-33); Mean Corpuscular Volume 91.4 fl (85-98); Mean Platelet Volume 9.9 fL (7.4-10.4); Monocytes # 0.7 10^3/uL (0.2-0.9); Monocytes % 7.2 %; Neutrophils # 7.88 10^3/uL (1.8-7.7); Neutrophils % 86.6 %; Nucleated Red Blood Cells % 0 %; Platelet Count 174 10^3/cmm (157-399); Red Blood Count 4.63 10^6/uL (3.85-5.65); White Blood Count 9.11 10^3/uL (3.29-11.43)
[2024-07-31 07:33] LABS: Alanine Aminotransferase 8 U/L (0-33); Albumin Level 4.1 g/dL (3.5-5.2); Alkaline Phosphatase 71 U/L (35-105); Anion Gap 19.6 (5-19); Aspartate Amino Transferase 15 U/L (0-32); Blood Urea Nitrogen 23 mg/dL (8-23); Carbon Dioxide 26 mmol/L (22-29); Chloride 98 mmol/L (98-107); Creatinine Clr Calc Pharmacy 41.5117; Glucose 134 mg/dL (65-115); Osmolality Calculated 296 mOsm/kg (285-295); Potassium 3.6 mmol/L (3.5-5.1); Sodium 140 mmol/L (136-145); Total Bilirubin 0.8 mg/dL (0.15-1.2); Total Protein 7.1 g/dL (6.6-8.7)
[2024-07-31 08:42] LABS: Troponin(5th) Baseline 29 ng/L (0-10)
[2024-07-31 09:47] LABS: Troponin 5 2HR 23.93 ng/L (0-10)
[2024-07-31 09:52] LABS: Troponin 5 2HR Delta -5.07 ABS# (0-10)
--- NOTE | 2024-07-31 10:07 | ECG_ITS ---
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 Measurements Intervals [place] Rate: 86 P: -55 DC: 179 QRS: -87 QRSD: 170 T: 74 QT: 437 QTc: 524 Interpretive Statements ELECTRONIC ATRIAL PACEMAKER, premature ventricular contractions ELECTRONIC VENTRICULAR PACEMAKER ABNORMAL RHYTHM ECG Compared to ECG 07/31/2024 07:02:04 Intraventricular conduction delay no longer present Myocardial infarct finding no longer present Electronically Signed On 08-01-2024 09:04:46 CDT by Laura Valentine M.D. [email or web address]
[2024-07-31 10:52] LABS: Influenza A NEGATIVE (Negative); Influenza B NEGATIVE (Negative); Respiratory Syncytial Virus Ce NEGATIVE (Negative); SARS-CoV-2 PCR NEGATIVE (Negative)
[2024-07-31 12:31] VITALS: BP 128/60; PULSE 95; O2SAT 97
== END 2024-07-31 12:32 | disposition home or self-care (01) ==
PROVIDERS: Emergency Provider Family Medicine; PCP Nurse Practitioner Family
DX: J40 Bronchitis, not specified as acute or chronic (principal); Z11.52 Encounter for screening for COVID-19; Z79.82 Long term (current) use of aspirin; I11.0 Hypertensive heart disease with heart failure; I50.9 Heart failure, unspecified
CPT/HCPCS: 36415; 71045; 80053; 84484; 85025; 87637; 93005; 99285

== ENCOUNTER 2024-08-05 19:00 | Inpatient (IN) | payer MEDICARE, SELFPAY ==
[2024-08-05] VITALS (9 sets, daily range): BP systolic 68–122; BP diastolic 28–77; PULSE 66–110; RESP 18–20; TEMP 36.4; O2SAT 95–97; BMI 18.8; BMI 17.6
--- NOTE | 2024-08-05 19:06 | ECG_ITS ---
[employer] Test Date: 2024-08-05 Pat Name: Lorie Wnog Department: Room: 252 Gender: Female Arrt Technologist: : 1945 Requested By: Ulices Martinez Order Number: [id number] Gelacio MD: Laura Valentine M.D. Measurements Intervals [place] Rate: 74 P: 17 SD: 219 QRS: -86 QRSD: 141 T: 102 QT: 412 QTc: 458 Interpretive Statements ELECTRONIC VENTRICULAR PACEMAKER ABNORMAL RHYTHM ECG Compared to ECG 07/31/2024 10:43:27 Ventricular premature complex(es) no longer present Atrial-paced complex(es) or rhythm no longer present Heavy baseline artifacts; Need to repeat the study. Electronically Signed On 08-06-2024 19:56:19 CDT by Laura Valentine M.D. [id number]
--- NOTE | 2024-08-05 19:36 | XRR_ITS ---
PROCEDURE INFORMATION: Exam: XR Chest Exam date and time: 08/05/2024 7:42 PM Age: 78 years old Clinical indication: Other: Dizziness TECHNIQUE: Imaging protocol: Radiologic exam of the chest. Views: 1 view. COMPARISON: CR XR chest 1V portable [id number] 07/31/2024 7:16 AM FINDINGS: Tubes, catheters and devices: Left subclavian transvenous atrioventricular pacemaker is in expected position. Lungs: No pulmonary venous distension. Hyperinflated but clear lungs. Pleural spaces: No pleural effusion. No pneumothorax. Heart/Mediastinum: Unchanged moderate cardiomegaly. Bones/joints: Subjective bony demineralization. No visible fracture. XR/XR chest 1V portable [id number] IMPRESSION: Clear hyperinflated lungs. Stable moderate cardiomegaly.
--- NOTE | 2024-08-05 19:45 | W.ED.WEAKNES ---
HPI - Weakness General: Chief complaint: Weakness Stated complaint: dizziness Time Seen by Provider: 08/05/24 19:01 History of Present Illness: 78-year-old female with past medical history of cardiomyopathy, EF less than 30%, status post pacemaker AICD is presenting with dizziness. She states she is her dizziness been going on for few months but has been worse today cannot stand gets orthostatic lightheadedness and near faint. Denies any chest pain has had some cough with associated shortness of breath but no fever chills no nausea no vomiting no diarrhea. Saw her primary care provider today has an appoint with PCP tomorrow. However got worse today and so she is coming in by ambulance. She was given IV fluids. Associated symptoms: Denies chest pain, chills, fever(s), headache(s), nausea or vomiting Review of Systems Const: Denies: fever(s) or chills Eyes: Denies: change in vision ENMT: Denies: throat pain Card: Reports: lightheadedness and pre-syncope; Denies: chest pain, palpitations, irregular heart rhythm, edema or swelling of feet/ankles Resp: Reports: dyspnea and productive cough; Denies: non-productive cough, wheezing, stridor, pain on inspiration or change in phlegm color GI: Denies: abdominal pain, nausea, vomiting or diarrhea : Denies: flank pain or difficulty voiding Musc: Denies: neck pain, back pain or extremity pain Skin/Breast: Denies: rash Neuro: Reports: dizziness; Denies: headache(s), numbness in extremities or weakness in extremities PFSH ED PFSH: Medical History Heart failure, left, with LVEF <=30% Arrhythmia Benign essential HTN Near syncope Cardiomyopathy Hx of chest pain Hypertension Anxiety Hx of cardiomyopathy Hx of viral pericarditis Hx of cardiac arrhythmia History of chronic fatigue Hx of essential hypertension Surgical History History of partial hysterectomy History of breast lump removal Family History Brother CAD (coronary artery disease) unknown age of onset Mother Dementia Father Diabetes Other Suicide Denies family history of Clotting disorder Chronic kidney disease (CKD) Anesthesia complication Bleeding disorder Lung disease Cancer Stroke Social History Smoking and tobacco/nicotine status: never used tobacco/nicotine Second hand smoke exposure: Yes Alcohol intake: never Substance/Drug Use: never Lives independently: Yes Household members: significant other Marital status: Life Partner Current gender identity: Female Special yennifer needs: No Agree to transfusion: Yes Physical Exam Const: COMMON NORMALS: no acute distress, patient oriented x3 and alert HENMT: COMMON NORMALS: normocephalic and atraumatic HEAD & SCALP: normocephalic and atraumatic Eye: COMMON NORMALS: Equal, round and reactive pupils present and conjunctivae normal CONJUNCTIVA: Yes conjunctivae normal PUPIL: Yes Equal, round and reactive pupils present Neck/C-Spine: COMMON NORMALS: full ROM, supple and no JVD Chest: COMMONS NORMALS: normal inspection of the chest Resp: COMMON NORMALS: normal respiratory effort, No retractions, No use of accessory muscles and clear to auscultation bilaterally AUSCULTATION: clear to auscultation bilaterally, no crackles, no rales, no rhonchi and no wheezes Cardio: COMMON NORMALS: no JVD, regular rhythm, S1 normal heart sound present and S2 normal heart sound present RHYTHM: regular rhythm HEART SOUNDS: S1 normal heart sound present and S2 normal heart sound present GI: COMMON NORMALS: Normal to inspection, nondistended, normoactive bowel sounds present, Soft to palpation and non-tender PALPATION: Yes Soft to palpation : COMMON NORMALS: Yes no CVA tenderness BLADDER/KIDNEY EXAM: Yes no CVA tenderness Back/Pelvis: COMMON NORMALS: no CVA tenderness Extremity: COMMON NORMALS: normal to inspection, full ROM and capillary refill normal Neuro: COMMON NORMALS: patient oriented x3 SENSORIUM/ORIENTATION: Yes alert Course Vital Signs: Vital signs: Vital Signs Temperature 97.5 F L 08/05/24 19:03 Pulse Rate 78 08/05/24 20:50 Respiratory Rate 20 H 08/05/24 20:50 Blood Pressure 115/70 08/05/24 21:34 Pulse Oximetry 96 08/05/24 20:50 Oxygen Delivery Me thod Room Air 08/05/24 20:50 MDM - Weakness Medical Decision Making Patient orthostatic with blood pressure dipping to 60/30 when standing up and symptomatic. Lying down blood pressure is normal and feels relief of her symptoms. Symptoms not consistent with vertigo but orthostatic hypotension and near syncope. Workup remarkable for no significant anemia, troponin indeterminant repeat is pending. Mild hypokalemia which we will replete. No UTI on UA. CTA of the chest read by me demonstrates no pneumonia no PE. Radiology read is pending. Plan for inpatient observation overnight, patient feels not comfortable with going home. Case discussed with hospitalist Dr. Altman who requests device interrogation which we have started will admit put admit orders in. Lab Data 08/05/24 20:23 08/05/24 20:23 Radiology Impressions Chest X-Ray 08/05/24 19:36 IMPRESSION: Clear hyperinflated lungs. Stable moderate cardiomegaly. Chest CTA 08/05/24 20:51 IMPRESSION: 1. There are features of mild bronchitis with minimal retained secretions in the tracheobronchial tree. No airspace disease. 2. No findings of acute pulmonary embolism. 3. There is insufficient contrast in the aortic lumen to exclude acute dissection. Ascending aorta is dilated measuring up to 4.2 cm. Correlate with any clinical findings aortic valve disease. There is no visible aortic valve leaflet calcification. 4. Incidental 4 mm right upper lobe pulmonary nodule. For patients at low risk (minimal or absent history of smoking and of other known risk factors), no routine follow-up is indicated. For patients at high risk (history of smoking or of other known risk factors), consider optional CT Chest at 12 months. (Reference: Louie) REFERENCES: Louie Freitas, et al. Guidelines for Management of Incidental Pulmonary Nodules Detected on CT Images: From the Fleischner Society 2017. Radiology. 2017;284(1):228-243. Laboratory Results WBC 10.06 10^3/uL (3.29-11.43) 08/05/24 20: RBC 4.76 10^6/uL (3.85-5.65) 08/05/24: Hgb 14.20 g/dL (11.27-16.99) 08/05/24 20: Hct 42.6 % (36-47) 08/05/24 20: MCV 89.5 fl (85-98) 08/05/24: MCH 29.8 pg (27-33) 08/05/24 20: MCHC 33.3 g/dL (30-55) 08/05/24 20: RDW 12.5 % (12.1-15.1) 08/05/24 20: Plt Count 253 10^3/cmm (157-399) 08/05/24 20: MPV 10.6 fL (7.4-10.4) H 08/05/24 20: Neut % (Auto) 78.9 % 08/05/24: Lymph % (Auto) 14.8 % 08/05/24 20: Garrett % (Auto) 5.4 % 08/05/24 20: Eos % (Auto) 0.1 % 08/05/24: Baso % (Auto) 0.5 % 08/05/24: Neut # (Auto) 7.94 10^3/uL (1.8-7.7) H 08/05/24: Lymph # (Auto) 1.5 10^3/uL (0.8-4.8) 08/05/24 20: Garrett # (Auto) 0.5 10^3/uL (0.2-0.9) 08/05/24: Eos # (Auto) 0.0 10^3/uL (0.0-0.8) 08/05/24: Baso # (Auto) 0.1 10^3/uL (0.0-0.1) 08/05/24: Nucleated RBC % (auto) 0 % 08/05/24: Nucleated RBCs # 0.0 /100WBC 08/05/24: D-Dimer 1.49 ug/mLFEU (0-0.59) H 08/05/24 20: Sodium 140 mmol/L (136-145) 08/05/24 20: Potassium 3.0 mmol/L (3.5-5.1) L 08/05/24 20: Chloride 98 mmol/L (98-107) 08/05/24 20: Carbon Dioxide 27 mmol/L (22-29) 08/05/24 20: Anion Gap 18.0 (5-19) 08/05/24 20: BUN 37 mg/dL (8-23) H 08/05/24 20:23 Creatinine 1.1 mg/dL (0.5-0.9) H 08/05/24 20:23 GFR Calculation Not Reportable 08/05/24 20: Glucose 128 mg/dL (65-115) H 08/05/24 20:23 Calculated Osmolality 300 mOsm/kg (285-295) H 08/05/24 20: Lactic Acid 1.5 mmol/L (0.5-2.2) 08/05/24 20: Calcium 9.7 mg/dL (8.5-10.5) 08/05/24 20: Magnesium 1.8 mg/dL (1.7-2.3) 08/05/24 20: Total Bilirubin 0.7 mg/dL (0.15-1.2) 08/05/24 20: AST 12 U/L (0-32) 08/05/24 20: ALT 10 U/L (0-33) 08/05/24 20: Alkaline Phosphatase 68 U/L (35-105) 08/05/24 20: Troponin T Baseline 29 ng/L (0-10) H 08/05/24 20:23 NT-Pro-B Natriuret Pep 855 pg/mL (0-450) H 08/05/24 20: Total Protein 6.5 g/dL (6.6-8.7) L 08/05/24 20: Albumin 3.8 g/dL (3.5-5.2) 08/05/24 20: Globulin 2.7 g/dL (1.3-4.6) 08/05/24 20: Urine Color Yellow (Yellow) 08/05/24 19:55 Urine Appearance Clear (CLEAR) 08/05/24 19: Urine pH 5.0 (5-7) 08/05/24 19: Ur Specific [place] 1.013 (1.005-1.030) 08/05/24 19: Urine Protein Trace (Negative) A 08/05/24 19: Urine Glucose (UA) Negative (Normal) 08/05/24 19:55 Urine Ketones Negative (Negative) 08/05/24 19: Urine Blood Negative (Negative) 08/05/24 19: Urine Nitrate Negative (Negative) 04/22/25 19:55 Urine Bilirubin Negative (Negative) 08/05/24 19:55 Urine Urobilinogen 0.2 mg/dL (Negative) 08/05/24 19:55 Ur Leukocyte Esterase Negative (Negative) 08/05/24 19:55 Urine RBC 0-2 /hpf (0-2) 08/05/24 19:55 Urine WBC 0-5 /hpf (0-5) 08/05/24 19:55 Ur Squamous Epith Cells 0-5 /hpf (0-5) 08/05/24 19:55 Amorphous Sediment Not Reportable 08/05/24 19:55 Urine Bacteria None seen /hpf (NONE) 08/05/24 19:55 Hyaline Casts 0.81 /lpf 08/05/24 19:55 All radiology interpretation(s) finalized by discharge Discharge Plan Discharge Patient Disposition: Admitted As Inpatient Clinical Impression: Orthostatic hypotension, Near syncope Condition: Stable Coding Level of Care Code ED Pattern Illustrator for Chg Fwd Related Data Home Medications ?Medication ?Instructions ?Recorded ?Confirmed aspirin 81 mg tablet,delayed 81 mg PO DAILY 03/12/23 08/05/24 release Previous Rx's ?Medication ?Instructions ?Recorded nitroglycerin 0.4 mg sublingual 0.4 mg sublingual Q5M PRN Chest 04/05/23 tablet Pain #25 tabs metoprolol succinate 25 mg 25 mg PO DAILY #180 tabs 02/11/24 tablet,extended release 24 hr sacubitril 24 mg-valsartan 26 mg See Rx Instructions .Route 03/25/24 tablet (Entresto) .COMPLEX #180 tabs furosemide 20 mg tablet See Rx Instructions .Route 05/28/24 .COMPLEX #90 tabs cetirizine 10 mg tablet (Zyrtec) 10 mg PO DAILY PRN allergy 07/04/24 symptoms #90 tabs fluticasone propionate 50 See Rx Instructions .Route 07/04/24 mcg/actuation nasal .COMPLEX #16 grams spray,suspension doxycycline hyclate 100 mg capsule 100 mg PO BID 10 days #20 caps 07/31/24 Allergies Allergy/AdvReac Type Severity Reaction Status Date / Time No Known Allergies Allergy Verified 08/05/24 19:05
[2024-08-05 20:12] LABS: Bilirubin Urine Negative (Negative); Blood Urine Negative (Negative); Glucose Urine UA Negative (Normal); Ketones Urine Negative (Negative); Leukocyte Esterase Urine Negative (Negative); Nitrate Urine Negative (Negative); Protein Urine Trace (Negative); Specific Gravity, Urine 1.013 (1.005-1.030); Urine Appearance Clear (CLEAR); Urine Color Yellow (Yellow); Urobilinogen Urine 0.2 mg/dL (Negative)
--- NOTE | 2024-08-05 20:15 | PC.NURSE ---
Pt requesting to use restroom but states she cannot walk d/t weakness and dizziness, requesting bed berman, pt placed on bed berman and had continent void.
[2024-08-05 20:17] LABS: Add Urine Microscopic? YES; Bacteria Urine None Seen /hpf; Hyaline Casts Urine 0.81 /lpf; RBC Urine 0-2 /hpf (0-2); Squamous Epithelial Cell Urine 0-5 /hpf (0-5); WBC Urine 0-5 /hpf (0-5)
[2024-08-05 20:34] LABS: Basophils # 0.1 10^3/uL (0.0-0.1); Basophils % 0.5 %; Eosinophils % 0.1 %; Hematocrit 42.6 % (36-47); Lymphocytes # 1.5 10^3/uL (0.8-4.8); Lymphocytes % 14.8 %; Mean Corpuscular HGB Conc 33.3 g/dL (30-55); Mean Corpuscular Hemoglobin 29.8 pg (27-33); Mean Corpuscular Volume 89.5 fl (85-98); Mean Platelet Volume 10.6 fL (7.4-10.4); Monocytes # 0.5 10^3/uL (0.2-0.9); Monocytes % 5.4 %; Neutrophils # 7.94 10^3/uL (1.8-7.7); Neutrophils % 78.9 %; Nucleated Red Blood Cells % 0 %; Platelet Count 253 10^3/cmm (157-399); Red Blood Count 4.76 10^6/uL (3.85-5.65); Red Cell Distribution Width 12.5 % (12.1-15.1); White Blood Count 10.06 10^3/uL (3.29-11.43)
[2024-08-05] MEDS: sodium chloride 0.9% 1,000 ML 999 ML IV (20:35)
[2024-08-05 20:49] LABS: D Dimer 1.49 ug/mLFEU (0-0.59)
--- NOTE | 2024-08-05 20:51 | CTR_ITS ---
PROCEDURE INFORMATION: Exam: CTA Chest With Contrast Exam date and time: 08/05/2024 9:18 PM Age: 78 years old Clinical indication: Shortness of breath and other: Orthostatic near syncope; Prior surgery; Surgery date: 6+ months; Surgery type: Pacemaker TECHNIQUE: Imaging protocol: Computed tomographic angiography of the chest with contrast. Exam focused on the arteries. 3D rendering (Not supervised by radiologist): MIP and/or 3D reconstructed images were created by the technologist. Radiation optimization: All CT scans at this facility use at least one of these dose optimization techniques: automated exposure control; mA and/or kV adjustment per patient size (includes targeted exams where dose is matched to clinical indication); or iterative reconstruction. Contrast material: OMNIPAQUE 350; Contrast volume: 64 ml; Contrast route: INTRAVENOUS (IV); COMPARISON: CR (CHEST, ) 08/05/2024 7:42 PM RADIATION DOSE METRICS: Total DLP (mGy-cm): 159.65 FINDINGS: Tubes, catheters and devices: Left subclavian transvenous atrioventricular pacemaker is in expected position. Pulmonary arteries: Normal caliber pulmonary artery tree without visible filling defect. Aorta: There is insufficient contrast in the aortic lumen to exclude acute dissection or penetrating ulcer. Ascending aorta is dilated measuring up to 4.2 cm. Thyroid: Homogeneous thyroid. Lungs: There is diffuse bronchial wall thickening with mild bronchial luminal narrowing. Sparse endobronchial debris. No airspace disease. 3 x 4 mm noncalcified nodule noted in the right upper lobe (series 4, image 15). Pleural spaces: Unremarkable. No pneumothorax. No pleural effusion. Heart: There is four-chamber cardiomegaly with particular prominence of the right atrium. No visible aortic valve leaflet thickening or calcification. Lymph nodes: Unremarkable. No enlarged lymph nodes. Bones/joints: Heart size is accentuated by pectus excavatum. No acute bony abnormality. Soft tissues: Unremarkable. CT/CT angio chest PE protcl [id number] IMPRESSION: 1. There are features of mild bronchitis with minimal retained secretions in the tracheobronchial tree. No airspace disease. 2. No findings of acute pulmonary embolism. 3. There is insufficient contrast in the aortic lumen to exclude acute dissection. Ascending aorta is dilated measuring up to 4.2 cm. Correlate with any clinical findings aortic valve disease. There is no visible aortic valve leaflet calcification. 4. Incidental 4 mm right upper lobe pulmonary nodule. For patients at low risk (minimal or absent history of smoking and of other known risk factors), no routine follow-up is indicated. For patients at high risk (history of smoking or of other known risk factors), consider optional CT Chest at 12 months. (Reference: Louie) REFERENCES: Louie Freitas, et al. Guidelines for Management of Incidental Pulmonary Nodules Detected on CT Images: From the Fleischner Society 2017. Radiology. 2017;284(1):228-243.
[2024-08-05 20:52] LABS: Lactic Sepsis W/Reflex 1.5 mmol/L (0.5-2.2)
[2024-08-05 21:02] LABS: Troponin(5th) Baseline 29 ng/L (0-10)
[2024-08-05 21:04] LABS: Alanine Aminotransferase 10 U/L (0-33); Albumin Level 3.8 g/dL (3.5-5.2); Alkaline Phosphatase 68 U/L (35-105); Aspartate Amino Transferase 12 U/L (0-32); Blood Urea Nitrogen 37 mg/dL (8-23); Calcium 9.7 mg/dL (8.5-10.5); Carbon Dioxide 27 mmol/L (22-29); Chloride 98 mmol/L (98-107); Creatinine Clr Calc Pharmacy 38.4504; Globulin 2.7 g/dL (1.3-4.6); Glucose 128 mg/dL (65-115); Magnesium 1.8 mg/dL (1.7-2.3); NT Pro B Type Natriuretic Pept 855 pg/mL (0-450); Osmolality Calculated 300 mOsm/kg (285-295); Sodium 140 mmol/L (136-145); Total Bilirubin 0.7 mg/dL (0.15-1.2); Total Protein 6.5 g/dL (6.6-8.7)
[2024-08-05] MEDS: potassium chloride ER 20 mEq Tablet 40 MEQ PO (21:15)
[2024-08-05] MEDS: iohexol 350 mg/mL 500 mL Btl (per mL) IV (21:21)
--- NOTE | 2024-08-05 21:36 | P.HP_ITS ---
Providers/Chief Complaint 2 Primary Care Provider: YOUNG Ochoa Chief Complaint: dizziness History of Present Illness Lorie Wong is a 78 year old female with a past medical history significant for heart failure with reduced ejection fraction, hypertension, cardiomyopathy, and ventricular arrhythmia status post AICD who presents to the emergency department with dizziness. Reports symptoms have been progressive for the past 2 weeks since being diagnosed with sinusitis. She feels like her sinus symptoms have been improving since being on doxycycline. She reports that standing and exertion worsens her dizziness. Endorses associated presyncopal symptoms. Denies actual syncopal episode. Endorses associated productive cough with white sputum. Denies fevers or chills. In the emergency department, patient was found to be markedly orthostatic. She was treated with 1 L IV fluid bolus. Potassium was replaced. Interrogation of device has been requested and pending at this time. Review of Systems 2 Narrative: A complete review of systems was obtained and is negative except as stated in HPI. Medications/Allergies Home Medications ?Medication ?Instructions ?Recorded ?Confirmed ?Last Taken ?Type aspirin 81 mg tablet,delayed 81 mg PO DAILY 03/12/23 0 08/05/24 Unknown History release nitroglycerin 0.4 mg sublingual 0.4 mg sublingual Q5M PRN Chest 04/05/23 08/05/24 Unknown Rx tablet Pain #25 tabs metoprolol succinate 25 mg 25 mg PO DAILY #180 tabs 08/05/24 07/31/24 Rx tablet,extended release 24 hr sacubitril 24 mg-valsartan 26 mg See Rx Instructions . Route 03/25/24 08/05/24 07/31/24 Rx tablet (Entresto) .COMPLEX #180 tabs furosemide 20 mg tablet See Rx Instructions .Route 0 05/28/24 08/05/24 07/31/24 Rx .COMPLEX #90 tabs cetirizine 10 mg tablet (Zyrtec) 10 mg PO DAILY PRN al lergy 07/04/24 08/05/24 07/31/24 Rx symptoms #90 tabs fluticasone propionate 50 See Rx Instructions .Route 0 07/04/24 08/05/24 07/31/24 Rx mcg/actuation nasal .COMPLEX #16 grams spray,suspension doxycycline hyclate 100 mg capsule 100 mg PO BID 10 da ys #20 caps 04/17/25 04/22/25 Unknown Rx Allergies Allergy/AdvReac Type Severity Reaction Status Date / Time No Known Allergies Allergy Verified 08/05/24 19:05 PFSH Acute 2 PFSH: Medical History Heart failure, left, with LVEF <=30% Arrhythmia Benign essential HTN Near syncope Cardiomyopathy Hx of chest pain Hypertension Anxiety Hx of cardiomyopathy Hx of viral pericarditis Hx of cardiac arrhythmia History of chronic fatigue Hx of essential hypertension Surgical History History of partial hysterectomy History of breast lump removal Family History Brother CAD (coronary artery disease) unknown age of onset Mother Dementia Father Diabetes Other Suicide Denies family history of Clotting disorder Chronic kidney disease (CKD) Anesthesia complication Bleeding disorder Lung disease Cancer Stroke Social History Smoking and tobacco/nicotine status: never used tobacco/nicotine Second hand smoke exposure: Yes Alcohol intake: never Substance/Drug Use: never Lives independently: Yes Household members: significant other Marital status: Life Partner Current gender identity: Female Special yennifer needs: No Agree to transfusion: Yes Vitals/I&O/Wt Last Vital Signs Temp 97.5 F L 08/05/24 19:03 Pulse 78 08/05/24 20:50 Resp 20 H 08/05/24 20:50 BP 115/70 08/05/24 21:34 Pulse Ox 96 08/05/24 20:50 O2 Del Method Room Air 08/05/24 20:50 08/05/24 08/05/24 08/05/24 06:59 14:59 22:59 Intake Total 100 / 100 Balance 100 / 100 Weight last 48 hrs Weight 54.431 kg Physical Exam 2 Narrative: General: Patient is awake and alert. Head: Normocephalic. Atraumatic. EOM intact. Dry mucous membranes. Neck: No JVD. Cardiovascular: RRR. No gallops. No murmurs. No peripheral edema. Lungs: Clear to auscultation, no use of accessory muscles, no crackles or wheezes. Cough present. Skin: No jaundice. No rashes. Abdomen: Normal bowel sounds, abdomen soft and nontender. Extremities: No cyanosis or clubbing. Musculoskeletal: No swollen or erythematous joints. Neurological: Moves all 4 extremities. No myoclonus. Data 08/05/24 20:23 08/05/24 20:23 A&P Assessment and plan (1) Orthostatic hypotension: S/p 1 L fluid bolus in ED Hold Entresto and Lasix Hold off on IV fluids but she had a bolus and at risk of heart failure Repeat orthostatic vitals in a.m. Fall precautions Telemetry monitoring Supportive care (2) Bronchitis: Bronchitis, recent sinusitis Patient reports improving on doxycycline, will continue Zyrtec and Flonase (3) Heart failure, left, with LVEF <=30%: Chronic heart failure with reduced ejection fraction without exacerbation Hold Entresto and Lasix as above due to severe orthostasis Continue beta-rosie Daily assessments of volume (4) Hypokalemia: Status post replacement Telemetry Repeat labs in a.m. (5) S/P implantation of automatic cardioverter/defibrillator (AICD): Device interrogation requested (6) CAD (coronary artery disease): Continue home meds Plan DVT prophylaxis: Lovenox CODE STATUS: Full code PDMP PDMP Reviewed: Not Reviewed Attestations 2 Medical Necessity Statement*: Patient presents with near syncope/dizziness, found to have significant orthostasis and bronchitis with expected hospitalization not to cross 2 midnights Coding Level of Care Code Acute Code for Chg Fwd Diagnoses Orthostatic hypotension I95.1 Bronchitis J40 Heart failure, left, with LVEF <=30% I50.1 Hypokalemia E87.6 S/P implantation of automatic cardioverter/defibrillator (AICD) Z95.810 CAD (coronary artery disease) I25.10
--- NOTE | 2024-08-05 21:55 | PC.NURSE ---
[employer] pacemaker interrogated at 2150.
--- NOTE | 2024-08-05 22:27 | PC.NURSE ---
Report called to [facility].
[2024-08-05 22:41] LABS: Troponin 5 2HR 29.23 ng/L (0-10); Troponin 5 2HR Delta 0.23 ABS# (0-10)
[2024-08-05 23:08] LABS: C Reactive Protein 10.3 mg/L (0.0-4.9)
[2024-08-05 23:15] LABS: Procalcitonin 0.28 ng/mL (0-0.5)
[2024-08-05] MEDS: enoxaparin 40 mg/0.4 mL Syringe SUBCUT (23:55)
[2024-08-06] VITALS (9 sets, daily range): BP systolic 74–125; BP diastolic 41–76; PULSE 54–102; RESP 16–18; TEMP 36.3–37.1; O2SAT 95–97
[2024-08-06 02:40] LABS: Basophils % 0.4 %; Eosinophils # 0.1 10^3/uL (0.0-0.8); Eosinophils % 0.5 %; Hematocrit 38.6 % (36-47); Lymphocytes # 2.2 10^3/uL (0.8-4.8); Lymphocytes % 22.5 %; Mean Corpuscular HGB Conc 33.4 g/dL (30-55); Mean Corpuscular Volume 89.8 fl (85-98); Mean Platelet Volume 10.6 fL (7.4-10.4); Monocytes # 0.6 10^3/uL (0.2-0.9); Monocytes % 6.5 %; Neutrophils # 6.69 10^3/uL (1.8-7.7); Neutrophils % 69.9 %; Nucleated Red Blood Cells % 0 %; Platelet Count 227 10^3/cmm (157-399); Red Cell Distribution Width 12.6 % (12.1-15.1); White Blood Count 9.58 10^3/uL (3.29-11.43)
[2024-08-06 02:55] LABS: Troponin 5 6HR 34.31 ng/L (0-10); Troponin 5 6HR Delta 5.31 ng/L (0-12)
[2024-08-06 03:18] LABS: Anion Gap 14.3 (5-19); Blood Urea Nitrogen 34 mg/dL (8-23); Calcium 8.8 mg/dL (8.5-10.5); Carbon Dioxide 26 mmol/L (22-29); Chloride 105 mmol/L (98-107); Creatinine Clr Calc Pharmacy 41.0127; Glucose 96 mg/dL (65-115); Magnesium 1.8 mg/dL (1.7-2.3); Osmolality Calculated 301 mOsm/kg (285-295); Potassium 3.3 mmol/L (3.5-5.1); Sodium 142 mmol/L (136-145); Thyroid Stimulating Hormone 1.01 uIU/mL (0.27-4.20)
[2024-08-06] MEDS: potassium chloride ER 20 mEq Tablet 40 MEQ PO (03:48)
[2024-08-06] MEDS: cetirizine 10 mg Tablet PO (08:13)
[2024-08-06] MEDS: metoprolol succinate ER (24 HR) 25 mg Tablet PO (08:13)
[2024-08-06] MEDS: aspirin 81 mg EC Tablet PO (08:13)
[2024-08-06] MEDS: doxycycline 100 mg Tablet PO ×2 (08:13→16:43)
[2024-08-06] MEDS: fluticasone nasal spray 16gm Btl 2 SPRAY NASAL ×2 (08:13→16:44)
--- NOTE | 2024-08-06 09:00 | PC.CHAP ---
Pastoral Care Encounter/Spiritual Assessment Type of Contact [] Declined supervisor typesetting visit [] Patient/Family/Request visit [] Outpatient visit [] Follow-up visit [] Physician referral [] Code/Alert [x] Routine visit [] Staff referral [] Actively dying [] Patient sleeping [] Family support [] [] Out of room [] Palliative care [] [] Receiving care in room [] Pre-surgical visit [] Trauma [] Long length of stay [] ICU visit [] Other: Relational/Emotional Strength [x] Patient feels connected with others/family/visitors/staff [] Distress [] Loneliness/isolation [] Abandonment Spirituality of Patient [x] Person of Kassandra [] Attends Advent of their Kassandra [x] Believes in Prayer [] Reads Bible or Sikh materials [] There are Spiritual issues to be addressed Smudger Interventions [x] Prayer [x] Active listening [x] Non-anxious presence [x] Spiritual/emotional support [] Crisis/trauma care [] Spiritual counseling [] Bereavement support [] Provided bereavement packet [] Provided Bible/devotional materials [] Provided toy/stuffed animal, coloring book to patient or family member [] Provided Communion [] Anointing/[place] [] Salvation [x] Completed spiritual assessment [] Other: Impact on Illness or Injury [] Angry [] Fearful [] Anxious [] Often cries [] Exhaustion [] Unable to work [] Unable to attend cheondoism [] Unable to walk/stand [] Unable to read [] Unable to drive [] Unable to eat/drink [] Unable to sleep [] Unable to be with family [] Patient intubated [] Other: Summary Time spent with patient 5 mi8n
--- NOTE | 2024-08-06 15:38 | P.PN_ITS ---
Subjective 2 Subjective: Patient was seen this morning, she continues to complain of fatigue, malaise, no nausea, no vomiting, does report intermittent dizziness - Repeat orthostatic vitals, lying blood pressure 105/57, standing blood pressure 75/50 - We discussed that potentially metoprol ol could be playing a role, and will hold metoprolol for now - She does report abdominal bloating, wi ll do CT scan of the abdomen, she does report some weight loss, - Continue IV fluids Vitals/I&O/Wt Last Vital Signs Temp 98.1 F 08/06/24 11:19 Pulse 90 08/06/24 11:19 Resp 17 08/06/24 11:19 BP 113/76 08/06/24 11:19 Pulse Ox 96 08/06/24 11:19 O2 Del Method Room Air 08/06/24 11:19 08/06/24 08/06/24 08/06/24 06:59 14:59 22:59 Intake Total 0 / 1100 240 / 240 Balance 0 / 1100 240 / 240 Weight last 48 hrs Weight 51.165 kg Weight 51.256 kg Weight 54.431 kg Physical Exam 2 Const: COMMON NORMALS: no acute distress and patient oriented x3 OTHER: Evidence of protein calorie malnutrition, bilateral temporal muscle wasting, fat pad thinning under bilateral clavicles, ribs Resp: COMMON NORMALS: normal respiratory effort, No retractions, No use of accessory muscles and clear to auscultation bilaterally AUSCULTATION: clear to auscultation bilaterally Cardio: COMMON NORMALS: regular rate, regular rhythm, S1 normal heart sound present and S2 normal heart sound present RATE: regular rate RHYTHM: r egular rhythm HEART SOUNDS: S1 normal heart sound present and S2 normal heart sound present GI: COMMON NORMALS: Normal to inspection, nondistended, normoactive bowel sounds present and non-tender Extremity: COMMON NORMALS: no pedal edema Neuro: COMMON NORMALS: patient oriented x3 Psych: COMMON NORMALS: mental status grossly normal Data 08/06/24 02:27 08/06/24 02:27 A&P Assessment and plan (1) Weight loss: - CT scan abdomen pelvis (2) Orthostatic hypotension: S/p 1 L fluid bolus in ED Hold Entresto and Lasix Gentle IV hydration at 50 cc an hour Hold metoprolol Repeat orthostatic vitals every 12 hours Fall precautions Telemetry monitoring Supportive care (3) Bronchitis: Bronchitis, recent sinusitis Patient reports improving on doxycycline, will continue Zyrtec and Flonase (4) Heart failure, left, with LVEF <=30%: Chronic heart failure with reduced ejection fraction without exacerbation Hold Entresto and Lasix as above due to severe orthostasis Hold beta-rosie Daily assessments of volume (5) Hypokalemia: Status post replacement Telemetry Repeat labs in a.m. (6) S/P implantation of automatic cardioverter/defibrillator (AICD): Device interrogation requested (7) CAD (coronary artery disease): Continue home meds (8) Protein-calorie malnutrition, moderate: (9) Physical deconditioning: - Has evidence of moderate protein, nutrition, physical deconditioning - BMI 17.7 - CT scan abdomen pelvis - Ensure drinks twice daily, consult dietary, PT OT - Etiology could be potentially related to severe heart failure EF less than 30%, CAD Plan DVT prophylaxis: Lovenox CODE STATUS: Full code PDMP PDMP Reviewed: Not Reviewed Attestations 2 Medical Necessity Statement*: Patient requires hospitalization for orthostatic hypotension Diagnoses Weight loss R63.4 Orthostatic hypotension I95.1 Bronchitis J40 Heart failure, left, with LVEF <=30% I50.1 Hypokalemia E87.6 S/P implantation of automatic cardioverter/defibrillator (AICD) Z95.810 CAD (coronary artery disease) I25.10 Protein-calorie malnutrition, moderate E44.0 Physical deconditioning R53.81
--- NOTE | 2024-08-06 15:39 | CTR_ITS ---
PROCEDURE INFORMATION: Exam: CT Abdomen And Pelvis Without Contrast Exam date and time: 08/06/2024 4:51 PM Age: 78 years old Clinical indication: Abdominal pain; Generalized; Additional info: Weightloss, fatigue, abdominal pain TECHNIQUE: Imaging protocol: Computed tomography of the abdomen and pelvis without contrast. Radiation optimization: All CT scans at this facility use at least one of these dose optimization techniques: automated exposure control; mA and/or kV adjustment per patient size (includes targeted exams where dose is matched to clinical indication); or iterative reconstruction. COMPARISON: CT kidney stone [id number] 03/12/2023 8:35 AM RADIATION DOSE METRICS: Total DLP (mGy-cm): 324.33 FINDINGS: Tubes, catheters and devices: Pacemaker. Lungs: Right lower lobe atelectasis versus minimal infiltrate. Emphysematous changes. Heart: Cardiomegaly. Small pericardial effusion measuring up to 12.9 mm in thickness over the left heart border. Liver: Hepatomegaly. Gallbladder and biliary ducts: Normal. No calcified stones. No ductal dilation. Pancreas: Normal. No ductal dilation. Spleen: Normal. No splenomegaly. Adrenal glands: Normal. No mass. Kidneys and ureters: Normal. No hydronephrosis. Stomach and bowel: Prominent fluid in several loops of small bowel without dilation may reflect enteritis in the appropriate clinical setting. Diverticulosis without diverticulitis. Appendix: No evidence of appendicitis. Intraperitoneal space: Unremarkable. No free air. No significant fluid collection. Vasculature: Mesenteric and bilateral renal artery atherosclerotic calcifications. Lymph nodes: Unremarkable. No enlarged lymph nodes. Urinary bladder: Unremarkable as visualized. Reproductive: Unremarkable as visualized. Bones/joints: Unremarkable. No acute fracture. Soft tissues: Unremarkable. CT/CT abdomen pelvis wo con [id number] IMPRESSION: 1. Prominent fluid in several loops of small bowel without dilation may reflect enteritis in the appropriate clinical setting. 2. Right lower lobe atelectasis versus minimal infiltrate. 3. Emphysematous changes. 4. Cardiomegaly. 5. Pacemaker. 6. Small pericardial effusion measuring up to 12.9 mm in thickness over the left heart border. 7. Diverticulosis without diverticulitis. 8. Mesenteric and bilateral renal artery atherosclerotic calcifications. 9. Hepatomegaly.
[2024-08-06] MEDS: sodium chloride 0.9% 1,000 ML 50 ML IV (16:43)
[2024-08-06] MEDS: enoxaparin 40 mg/0.4 mL Syringe SUBCUT (22:56)
[2024-08-07] VITALS (10 sets, daily range): BP systolic 77–128; BP diastolic 49–78; PULSE 60–101; RESP 15–17; TEMP 36.5–36.9; O2SAT 93–98
[2024-08-07 05:34] LABS: Basophils # 0.1 10^3/uL (0.0-0.1); Basophils % 0.7 %; Eosinophils # 0.1 10^3/uL (0.0-0.8); Eosinophils % 1.2 %; Hematocrit 37.2 % (36-47); Lymphocytes % 22.1 %; Mean Corpuscular HGB Conc 32.5 g/dL (30-55); Mean Corpuscular Volume 95.4 fl (85-98); Mean Platelet Volume 10.9 fL (7.4-10.4); Monocytes # 0.6 10^3/uL (0.2-0.9); Monocytes % 6.5 %; Neutrophils # 6.34 10^3/uL (1.8-7.7); Neutrophils % 69.2 %; Nucleated Red Blood Cells % 0 %; Platelet Count 213 10^3/cmm (157-399); Red Cell Distribution Width 12.9 % (12.1-15.1); White Blood Count 9.17 10^3/uL (3.29-11.43)
[2024-08-07 06:00] LABS: Alanine Aminotransferase 7 U/L (0-33); Alkaline Phosphatase 62 U/L (35-105); Anion Gap 11.9 (5-19); Aspartate Amino Transferase 11 U/L (0-32); Blood Urea Nitrogen 31 mg/dL (8-23); Calcium 8.9 mg/dL (8.5-10.5); Carbon Dioxide 26 mmol/L (22-29); Chloride 108 mmol/L (98-107); Creatinine Clr Calc Pharmacy 46.0574; Globulin 2.5 g/dL (1.3-4.6); Glucose 94 mg/dL (65-115); Osmolality Calculated 300 mOsm/kg (285-295); Potassium 3.9 mmol/L (3.5-5.1); Sodium 142 mmol/L (136-145); Total Bilirubin 0.5 mg/dL (0.15-1.2); Total Protein 5.5 g/dL (6.6-8.7)
[2024-08-07] MEDS: aspirin 81 mg EC Tablet PO (08:31)
[2024-08-07] MEDS: cetirizine 10 mg Tablet PO (08:31)
[2024-08-07] MEDS: doxycycline 100 mg Tablet PO ×2 (08:31→17:35)
[2024-08-07] MEDS: fluticasone nasal spray 16gm Btl 2 SPRAY NASAL ×2 (08:31→17:35)
[2024-08-07] MEDS: sodium chloride 0.9% 1,000 ML 50 ML IV (13:28)
--- NOTE | 2024-08-07 16:59 | P.PN_ITS ---
Subjective 2 Subjective: Patient was seen this morning, she reports feeling lightheaded and dizzy, upon standing up, it remains orthostatic positive, discussed getting IV fluids, she is in agreement, Vitals/I&O/Wt Last Vital Signs Temp 97.7 F 08/07/24 15:29 Pulse 64 08/07/24 15:29 Resp 15 08/07/24 15:29 BP 128/78 08/07/24 15:29 Pulse Ox 97 08/07/24 15:29 O2 Del Method Room Air 08/07/24 15:29 08/07/24 08/07/24 08/07/24 06:59 14:59 22:59 Intake Total 1473.167 / 1473.167 Balance 1473.167 / 1473.167 Weight last 48 hrs Weight 51.846 kg Weight 51.165 kg Weight 51.256 kg Weight 54.431 kg Physical Exam 2 Const: COMMON NORMALS: no acute distress and patient oriented x3 Resp: COMMON NORMALS: normal respiratory effort, No retractions, No use of accessory muscles and clear to auscultation bilaterally AUSCULTATION: clear to auscultation bilaterally Cardio: COMMON NORMALS: regular rate, regular rhythm, S1 normal heart sound present and S2 normal heart sound present RATE: regular rate RHYTHM: r egular rhythm HEART SOUNDS: S1 normal heart sound present and S2 normal heart sound present GI: COMMON NORMALS: Normal to inspection, nondistended, normoactive bowel sounds present and non-tender Extremity: COMMON NORMALS: no pedal edema Neuro: COMMON NORMALS: patient oriented x3 Psych: COMMON NORMALS: mental status grossly normal Data 08/07/24 04:38 08/07/24 04:38 A&P Assessment and plan (1) Weight loss: - CT scan abdomen pelvis (2) Orthostatic hypotension: S/p 1 L fluid bolus in ED Hold Entresto and Lasix Gentle IV hydration at 50 cc an hour Hold metoprolol Repeat orthostatic vitals every 12 hours Fall precautions Telemetry monitoring Supportive care (3) Bronchitis: Bronchitis, recent sinusitis Patient reports improving on doxycycline, will continue Zyrtec and Flonase (4) Heart failure, left, with LVEF <=30%: Chronic heart failure with reduced ejection fraction without exacerbation Hold Entresto and Lasix as above due to severe orthostasis Hold beta-rosie Daily assessments of volume (5) Hypokalemia: Status post replacement Telemetry Repeat labs in a.m. (6) S/P implantation of automatic cardioverter/defibrillator (AICD): Device interrogation requested (7) CAD (coronary artery disease): Continue home meds (8) Protein-calorie malnutrition, moderate: (9) Physical deconditioning: - Has evidence of moderate protein, nutrition, physical deconditioning - BMI 17.7 - CT scan abdomen pelvis, no acute findings - Ensure drinks twice daily, consult dietary, PT OT - Etiology could be potentially related to severe heart failure EF less than 30%, CAD Plan DVT prophylaxis: Lovenox CODE STATUS: Full code PDMP PDMP Reviewed: Not Reviewed Attestations 2 Medical Necessity Statement*: Patient requires hospitalization for orthostatic hypotension, requiring gentle IV hydration given CHF Diagnoses Weight loss R63.4 Orthostatic hypotension I95.1 Bronchitis J40 Heart failure, left, with LVEF <=30% I50.1 Hypokalemia E87.6 S/P implantation of automatic cardioverter/defibrillator (AICD) Z95.810 CAD (coronary artery disease) I25.10 Protein-calorie malnutrition, moderate E44.0 Physical deconditioning R53.81
[2024-08-07] MEDS: enoxaparin 40 mg/0.4 mL Syringe SUBCUT (22:12)
[2024-08-08] VITALS (9 sets, daily range): BP systolic 98–135; BP diastolic 62–84; PULSE 61–90; RESP 13–18; TEMP 36.4–36.8; O2SAT 95–97; BMI 17.8
[2024-08-08 05:33] LABS: Basophils # 0.1 10^3/uL (0.0-0.1); Basophils % 0.7 %; Eosinophils # 0.1 10^3/uL (0.0-0.8); Eosinophils % 1.6 %; Hematocrit 38.6 % (36-47); Lymphocytes # 2.3 10^3/uL (0.8-4.8); Lymphocytes % 25.1 %; Mean Corpuscular HGB Conc 31.6 g/dL (30-55); Mean Corpuscular Hemoglobin 29.8 pg (27-33); Mean Corpuscular Volume 94.1 fl (85-98); Mean Platelet Volume 10.9 fL (7.4-10.4); Monocytes # 0.6 10^3/uL (0.2-0.9); Monocytes % 6.9 %; Neutrophils # 5.87 10^3/uL (1.8-7.7); Neutrophils % 65.3 %; Nucleated Red Blood Cells % 0 %; Platelet Count 211 10^3/cmm (157-399); Red Cell Distribution Width 12.6 % (12.1-15.1); White Blood Count 8.99 10^3/uL (3.29-11.43)
[2024-08-08 06:01] LABS: Alanine Aminotransferase 8 U/L (0-33); Albumin Level 3.1 g/dL (3.5-5.2); Alkaline Phosphatase 67 U/L (35-105); Anion Gap 12.2 (5-19); Aspartate Amino Transferase 13 U/L (0-32); Blood Urea Nitrogen 27 mg/dL (8-23); Calcium 9.2 mg/dL (8.5-10.5); Carbon Dioxide 25 mmol/L (22-29); Chloride 110 mmol/L (98-107); Creatinine Clr Calc Pharmacy 51.8896; Globulin 2.6 g/dL (1.3-4.6); Glucose 91 mg/dL (65-115); Osmolality Calculated 301 mOsm/kg (285-295); Potassium 4.2 mmol/L (3.5-5.1); Sodium 143 mmol/L (136-145); Total Bilirubin 0.6 mg/dL (0.15-1.2); Total Protein 5.7 g/dL (6.6-8.7)
[2024-08-08] MEDS: doxycycline 100 mg Tablet PO ×2 (09:22→17:36)
[2024-08-08] MEDS: fluticasone nasal spray 16gm Btl 2 SPRAY NASAL ×2 (09:22→17:36)
[2024-08-08] MEDS: aspirin 81 mg EC Tablet PO (09:22)
[2024-08-08] MEDS: cetirizine 10 mg Tablet PO (09:22)
--- NOTE | 2024-08-08 11:41 | PC.SOCIAL ---
IMM Update pg 2 of IMM Updated and reviewed w/ patient. Copy provided and copy dated, initialed and placed in chart.
--- NOTE | 2024-08-08 16:17 | P.PN_ITS ---
Subjective 2 Subjective: Patient was seen this morning, she is alert oriented x 3, following all commands, she is worried about persistent orthostatic hypotension, denies any chest pain, no palpitations, no facial droop, slurring words, no focal paresthesias Vitals/I&O/Wt Last Vital Signs Temp 98.0 F 08/08/24 15:45 Pulse 86 08/08/24 15:45 Resp 18 08/08/24 15:45 BP 129/80 08/08/24 15:45 Pulse Ox 95 08/08/24 15:45 O2 Del Method Room Air 08/08/24 15:45 08/08/24 08/08/24 08/08/24 06:59 14:59 22:59 Intake Total 200 / 1893.167 360 / 360 Balance 200 / 1893.167 360 / 360 Weight last 48 hrs Weight 51.71 kg Weight 51.846 kg Physical Exam 2 Const: COMMON NORMALS: no acute distress and patient oriented x3 Resp: COMMON NORMALS: normal respiratory effort, No retractions, No use of accessory muscles and clear to auscultation bilaterally AUSCULTATION: clear to auscultation bilaterally Cardio: COMMON NORMALS: regular rate, regular rhythm, S1 normal heart sound present and S2 normal heart sound present RATE: regular rate RHYTHM: r egular rhythm HEART SOUNDS: S1 normal heart sound present and S2 normal heart sound present GI: COMMON NORMALS: Normal to inspection, nondistended, normoactive bowel sounds present and non-tender Extremity: COMMON NORMALS: no pedal edema Neuro: COMMON NORMALS: patient oriented x3 Psych: COMMON NORMALS: mental status grossly normal Data 08/08/24 05:04 08/08/24 05:04 A&P Assessment and plan (1) Weight loss: - CT scan abdomen pelvis, no acute findings (2) Orthostatic hypotension: S/p 1 L fluid bolus in ED Hold Entresto and Lasix Gentle IV hydration at 50 cc an hour Hold metoprolol Repeat orthostatic vitals every 12 hours Fall precautions Telemetry monitoring Supportive care (3) Bronchitis: Bronchitis, recent sinusitis Patient reports improving on doxycycline, will continue Zyrtec and Flonase (4) Heart failure, left, with LVEF <=30%: Chronic heart failure with reduced ejection fraction without exacerbation Hold Entresto and Lasix as above due to severe orthostasis Hold beta-rosie Daily assessments of volume (5) Hypokalemia: Status post replacement Telemetry Repeat labs in a.m. (6) S/P implantation of automatic cardioverter/defibrillator (AICD): Device interrogation requested (7) CAD (coronary artery disease): Continue home meds (8) Protein-calorie malnutrition, moderate: (9) Physical deconditioning: - Has evidence of moderate protein, nutrition, physical deconditioning - BMI 17.7 - CT scan abdomen pelvis, no acute findings - Ensure drinks twice daily, consult dietary, PT OT - Etiology could be potentially related to severe heart failure EF less than 30%, CAD Plan DVT prophylaxis: Lovenox CODE STATUS: Full code Plan for today monitor orthostatic vitals, continue to monitor clinically, hold metoprolol hold Entresto PDMP PDMP Reviewed: Not Reviewed Attestations 2 Medical Necessity Statement*: Patient requires hospitalization for orthostatic hypotension Diagnoses Weight loss R63.4 Orthostatic hypotension I95.1 Bronchitis J40 Heart failure, left, with LVEF <=30% I50.1 Hypokalemia E87.6 S/P implantation of automatic cardioverter/defibrillator (AICD) Z95.810 CAD (coronary artery disease) I25.10 Protein-calorie malnutrition, moderate E44.0 Physical deconditioning R53.81
[2024-08-08] MEDS: enoxaparin 40 mg/0.4 mL Syringe SUBCUT (20:47)
[2024-08-09 00:47] VITALS: BP 108/87; BP 125/78; BP 64/39; PULSE 83; PULSE 90; PULSE 97; RESP 16; TEMP 36.9; O2SAT 96
[2024-08-09 05:09] VITALS: BP 119/65; PULSE 67; RESP 14; TEMP 36.8; O2SAT 96
[2024-08-09 05:47] LABS: Basophils # 0.1 10^3/uL (0.0-0.1); Basophils % 0.6 %; Eosinophils # 0.1 10^3/uL (0.0-0.8); Eosinophils % 1.8 %; Hematocrit 35.5 % (36-47); Lymphocytes # 2.3 10^3/uL (0.8-4.8); Lymphocytes % 29.4 %; Mean Corpuscular HGB Conc 31.3 g/dL (30-55); Mean Corpuscular Hemoglobin 29.9 pg (27-33); Mean Corpuscular Volume 95.7 fl (85-98); Mean Platelet Volume 10.7 fL (7.4-10.4); Monocytes # 0.5 10^3/uL (0.2-0.9); Monocytes % 6.8 %; Neutrophils # 4.82 10^3/uL (1.8-7.7); Nucleated Red Blood Cells % 0 %; Platelet Count 224 10^3/cmm (157-399); Red Blood Count 3.71 10^6/uL (3.85-5.65); Red Cell Distribution Width 12.7 % (12.1-15.1)
[2024-08-09 06:04] VITALS: BMI 17.8
[2024-08-09 06:09] LABS: Alanine Aminotransferase 7 U/L (0-33); Albumin Level 2.8 g/dL (3.5-5.2); Alkaline Phosphatase 55 U/L (35-105); Aspartate Amino Transferase 10 U/L (0-32); Blood Urea Nitrogen 26 mg/dL (8-23); Calcium 9.1 mg/dL (8.5-10.5); Carbon Dioxide 25 mmol/L (22-29); Chloride 109 mmol/L (98-107); Creatinine Clr Calc Pharmacy 51.8896; Globulin 2.4 g/dL (1.3-4.6); Glucose 82 mg/dL (65-115); Osmolality Calculated 296 mOsm/kg (285-295); Sodium 141 mmol/L (136-145); Total Bilirubin 0.5 mg/dL (0.15-1.2); Total Protein 5.2 g/dL (6.6-8.7)
[2024-08-09 07:43] VITALS: BP 120/76; PULSE 67; RESP 16; TEMP 36.6; O2SAT 96
[2024-08-09] MEDS: fluticasone nasal spray 16gm Btl 2 SPRAY NASAL (08:54)
[2024-08-09] MEDS: doxycycline 100 mg Tablet PO (08:55)
[2024-08-09] MEDS: aspirin 81 mg EC Tablet PO (08:55)
[2024-08-09] MEDS: cosyntropin 0.25 mg SDV IVP (08:56)
[2024-08-09 09:32] LABS: Cortisol Random 16.07 ug/dL (2.47-19.5)
[2024-08-09 09:33] LABS: Rapid Plasma Reagin Syphilis Nonreactive (Nonreactive)
[2024-08-09 09:53] LABS: Folate Level 11.2 ng/mL (4.8-37.3)
[2024-08-09 10:00] VITALS: BP 104/60; BP 119/77; BP 92/56
[2024-08-09 10:07] LABS: Vitamin B12 557 pg/mL (232-1245)
[2024-08-09 10:10] LABS: Cosyntropin 30 Minute 24.37 mcg/dL
--- NOTE | 2024-08-09 10:14 | P.DS_ITS ---
Discharge Providers Date of Admission: 08/06/24 15:39 Date of Discharge: August 09, 2024 Attending Provider at Admission: Augustin Altman MD Attending Provider at Discharge: Spencer Dorsey MD Primary Care Provider: YOUNG Ochoa Diagnoses at Discharge Discharge Diagnosis (1) Weight loss: Status: Acute (2) Orthostatic hypotension: Status: Acute (3) Bronchitis: Status: Acute (4) Heart failure, left, with LVEF <=30%: Status: Acute (5) Hypokalemia: Status: Acute (6) S/P implantation of automatic cardioverter/defibrillator (AICD): Status: Acute (7) CAD (coronary artery disease): Status: Acute (8) Protein-calorie malnutrition, moderate: Status: Acute (9) Physical deconditioning: Status: Acute Reason for Visit Reason for Visit: dizziness Hospital Course Hospital Course This is a 78-year-old female with past medical history of CHF with reduced ejection fraction, hypertension, cardiomyopathy, ventricular arrhythmia status post AICD who presents to [facility] due to dizziness Patient was admitted to [facility] for orthostatic hypotension, received IV fluids for over 48 hours, with persistent orthostatic hypotension, Entresto was held, metoprolol was held, Lasix was held and she was monitored for another 48 hours. Although patient had clinically improved, her dizziness has significantly improved, she continues to have orthostatic hypotension and mild degree of symptomatology. TSH, B12, folic acid, serum cortisol, RPR, were within normal limits. No significant evidence of UTI. She was managed with antibiotics for her bronchitis. No chest pain, no shortness of breath. No complaints of neuropathy. I had a detailed discussion with patient about her persistent orthostatic hypotension, etiology likely component associated with her systolic CHF, in addition her metoprolol, and her Entresto. Unfortunately interventions for her orthostatic hypotension given her risk factors carry significant risks, such as salt tabs/fludrocortisone/midodrine, they have a high risk of exacerbating her heart failure. In addition her resting blood pressures are reasonable. However for example on the day of discharge her sitting blood pressure was 125/58, and her standing blood pressure was 64/39, she did not pass out, but she tells me she could feel it when standing up, she was able to manage it, but she was less dizzy than when she came in, but certainly it is noticeable. Nonetheless to some degree she is still symptomatic, unfortunately there is not allot of options that are available to the patient given her risk factors. I had a detailed discussion with her, that on discharge we will continue to hold metoprolol, Entresto, she will have to wear compression stockings. Fluid therapy is contentious, given her diminished ejection fraction I would have her continue her home regimen as there is no significant concerns for fluid overload. Nonetheless unfortunately the only option is conservative management, compression stockings, and patient ambulating and changing position with care. I have recommended for her to keep a walker always by her side, she should change position with care, monitor for her risk for falls. She lives at home by herself, and she is declined to go to a alf. Discussed with her that her greatest risk of falls are when she is changing positions, when she is getting up in the middle the night to go to the bathroom, or getting up from a seated position, she has an increased risk of morbidity and mortality. She voiced understanding, all questions answered, shared decision making. She will follow-up with her primary care provider to monitor orthostatic vitals. Follow- up with cardiology as outpatient. She voices understanding, all questions answered, agrees to proceed. - Please ambulate with care - When changing positions such as standing up from a seated position you have the higher risk of falls - Please give yourself time when you are changing positions - If you have a fall please call 911 - Please always have walker beside you when changing positions, especially when getting up out of bed in the middle the night - Please wear compression stockings - I have temporarily stopped her metoprolol, he might need to be reinstituted in the near future based on your clinical progress - Continue to hold Entresto for now - Please drink Ensure drinks twice daily - Follow-up with your primary care provider for rechecking her orthostatic vitals as outpatient - For your pulmonary nodule, please follow-up with your primary care provider, this needs to be monitored as outpatient Physical Exam Const: COMMON NORMALS: no acute distress and patient oriented x3 Resp: COMMON NORMALS: normal respiratory effort, No retractions, No use of accessory muscles and clear to auscultation bilaterally AUSCULTATION: clear to auscultation bilaterally Cardio: COMMON NORMALS: regular rate, regular rhythm, S1 normal heart sound present and S2 normal heart sound present RATE: regular rate RHYTHM: regular rhythm HEART SOUNDS: S1 normal heart sound present and S2 normal heart sound present GI: COMMON NORMALS: Normal to inspection, nondistended, normoactive bowel sounds present, non-tender and no masses Extremity: COMMON NORMALS: no pedal edema Neuro: COMMON NORMALS: patient oriented x3 Psych: COMMON NORMALS: mental status grossly normal Discharge Data Studies Completed and Pending Completed Studies During Hospitalization Category Date Time Status CT abdomen pelvis wo con [id number] Routine Cat Scan 08/06/24 15:39 Completed CTA PE [CT angio chest PE protcl [id number]] Stat Cat Scan 08/05/24 20:51 Completed XR chest 1V portable [id number] Stat Exams 08/05/24 19:36 Completed Pending at discharge Category Date Time Status Cosyntropin Stim Test Routine Lab 08/09/24 08:53 Results Radiology Impressions Chest X-Ray 08/05/24 19:36 IMPRESSION: Clear hyperinflated lungs. Stable moderate cardiomegaly. Chest CTA 08/05/24 20:51 IMPRESSION: 1. There are features of mild bronchitis with minimal retained secretions in the tracheobronchial tree. No airspace disease. 2. No findings of acute pulmonary embolism. 3. There is insufficient contrast in the aortic lumen to exclude acute dissection. Ascending aorta is dilated measuring up to 4.2 cm. Correlate with any clinical findings aortic valve disease. There is no visible aortic valve leaflet calcification. 4. Incidental 4 mm right upper lobe pulmonary nodule. For patients at low risk (minimal or absent history of smoking and of other known risk factors), no routine follow-up is indicated. For patients at high risk (history of smoking or of other known risk factors), consider optional CT Chest at 12 months. (Reference: Louie) REFERENCES: Saqibhomeet H, et al. Guidelines for Management of Incidental Pulmonary Nodules Detected on CT Images: From the Fleischner Society 2017. Radiology. 2017;284(1):228-243. Abdomen/Pelvis CT 08/06/24 15:39 IMPRESSION: 1. Prominent fluid in several loops of small bowel without dilation may reflect enteritis in the appropriate clinical setting. 2. Right lower lobe atelectasis versus minimal infiltrate. 3. Emphysematous changes. 4. Cardiomegaly. 5. Pacemaker. 6. Small pericardial effusion measuring up to 12.9 mm in thickness over the left heart border. 7. Diverticulosis without diverticulitis. 8. Mesenteric and bilateral renal artery atherosclerotic calcifications. 9. Hepatomegaly. Laboratory Results WBC 7.90 10^3/uL (3.29-11.43) 08/09/24 05:34 RBC 3.71 10^6/uL (3.85-5.65) L 08/09/24 05:34 Hgb 11.10 g/dL (11.27-16.99) L 08/09/24 05:34 Hct 35.5 % (36-47) L 08/09/24 05:34 MCV 95.7 fl (85-98) 08/09/24 05:34 MCH 29.9 pg (27-33) 08/09/24 05:34 MCHC 31.3 g/dL (30-55) 08/09/24 05:34 RDW 12.7 % (12.1-15.1) 08/09/24 05:34 Plt Count 224 10^3/cmm (157-399) 08/09/24 05:34 MPV 10.7 fL (7.4-10.4) H 08/09/24 05:34 Neut % (Auto) 61.0 % 08/09/24 05:34 Lymph % (Auto) 29.4 % 08/09/24 05:34 [place] % (Auto) 6.8 % 08/09/24 05:34 Eos % (Auto) 1.8 % 08/09/24 05:34 Baso % (Auto) 0.6 % 08/09/24 05:34 Neut # (Auto) 4.82 10^3/uL (1.8-7.7) 08/09/24 05:34 Lymph # (Auto) 2.3 10^3/uL (0.8-4.8) 08/09/24 05:34 [place] # (Auto) 0.5 10^3/uL (0.2-0.9) 08/09/24 05:34 Eos # (Auto) 0.1 10^3/uL (0.0-0.8) 08/09/24 05:34 Baso # (Auto) 0.1 10^3/uL (0.0-0.1) 08/09/24 05:34 Nucleated RBC % (auto) 0 % 08/09/24 05:34 Nucleated RBCs # 0.0 /100WBC 08/09/24 05:34 D-Dimer 1.49 ug/mLFEU (0-0.59) H 08/05/24 20:23 Sodium 141 mmol/L (136-145) 08/09/24 05:34 Potassium 4.0 mmol/L (3.5-5.1) 08/09/24 05:34 Chloride 109 mmol/L (98-107) H 08/09/24 05:34 Carbon Dioxide 25 mmol/L (22-29) 08/09/24 05:34 Anion Gap 11.0 (5-19) 08/09/24 05:34 BUN 26 mg/dL (8-23) H 08/09/24 05:34 Creatinine 0.7 mg/dL (0.5-0.9) 08/09/24 05:34 GFR Calculation Not Reportable 08/09/24 05:34 Glucose 82 mg/dL (65-115) 08/09/24 05:34 Calculated Osmolality 296 mOsm/kg (285-295) H 08/09/24 05:34 Lactic Acid 1.5 mmol/L (0.5-2.2) 08/05/24 20:23 Calcium 9.1 mg/dL (8.5-10.5) 08/09/24 05:34 Magnesium 1.8 mg/dL (1.7-2.3) 08/06/24 02:27 Total Bilirubin 0.5 mg/dL (0.15-1.2) 08/09/24 05:34 AST 10 U/L (0-32) 08/09/24 05:34 ALT 7 U/L (0-33) 08/09/24 05:34 Alkaline Phosphatase 55 U/L (35-105) 08/09/24 05:34 Troponin T Baseline 29 ng/L (0-10) H 08/05/24 20:23 Troponin T 120 Minute 29.23 ng/L (0-10) H 08/05/24 22:14 Delta Troponin T 0.23 ABS# (0-10) 08/05/24 22:14 Troponin T Hi Sens 6Hr 34.31 ng/L (0-10) H 08/06/24 02:27 Troponin T Hi Sens 6Hr Delta 5.31 ng/L (0-12) 08/06/24 02:27 C-Reactive Protein 10.3 mg/L (0.0-4.9) H 08/05/24 22:14 NT-Pro-B Natriuret Pep 855 pg/mL (0-450) H 08/05/24 20:23 Total Protein 5.2 g/dL (6.6-8.7) L 08/09/24 05:34 Albumin 2.8 g/dL (3.5-5.2) L 08/09/24 05:34 Globulin 2.4 g/dL (1.3-4.6) 08/09/24 05:34 Vitamin B12 557 pg/mL (232-1245) 08/09/24 08:53 Folate 11.2 ng/mL (4.8-37.3) 08/09/24 08:53 Procalcitonin 0.28 ng/mL (0-0.5) 08/05/24 22:14 TSH 1.01 uIU/mL (0.27-4.20) 08/06/24 02:27 Random Cortisol 16.07 ug/dL (2.47-19.5) 08/09/24 08:53 Cortisol Response 08/09/24 08:53 Urine Color Yellow (Yellow) 08/05/24 19:55 Urine Appearance Clear (CLEAR) 08/05/24 19:55 Urine pH 5.0 (5-7) 08/05/24 19:55 Ur Specific [place] 1.013 (1.005-1.030) 08/05/24 19:55 Urine Protein Trace (Negative) A 08/05/24 19:55 Urine Glucose (UA) Negative (Normal) 08/05/24 19:55 Urine Ketones Negative (Negative) 08/05/24 19:55 Urine Blood Negative (Negative) 08/05/24 19:55 Urine Nitrate Negative (Negative) 08/05/24 19:55 Urine Bilirubin Negative (Negative) 08/05/24 19:55 Urine Urobilinogen 0.2 mg/dL (Negative) 08/05/24 19:55 Ur Leukocyte Esterase Negative (Negative) 08/05/24 19:55 Urine RBC 0-2 /hpf (0-2) 08/05/24 19:55 Urine WBC 0-5 /hpf (0-5) 08/05/24 19:55 Ur Squamous Epith Cells 0-5 /hpf (0-5) 08/05/24 19:55 Amorphous Sediment Not Reportable 08/05/24 19:55 Urine Bacteria None seen /hpf (NONE) 08/05/24 19:55 Hyaline Casts 0.81 /lpf 08/05/24 19:55 RPR Nonreactive (Nonreactive) 08/09/24 08:53 Vitals Last Vital Signs Temp 97.8 F 08/09/24 07:43 Pulse 67 08/09/24 07:43 Resp 16 08/09/24 07:43 BP 120/76 08/09/24 07:43 Pulse Ox 96 08/09/24 07:43 O2 Del Method Room Air 08/09/24 07:43 Discharge Plan Discharge Patient Disposition: Home Health Service Condition: Stable Prescriptions: New doxycycline monohydrate 100 mg Tablet 100 mg PO BID 3 Days Qty: 6 0RF Continued nitroglycerin 0.4 mg tablet, sublingual 0.4 mg SUBLINGUAL Q5M PRN (Reason: Chest Pain) Qty: 25 6RF Rx Instructions: do not exceed 3 doses per episode furosemide 20 mg tablet See Rx Instructions .ROUTE .COMPLEX Qty: 90 1RF Dose Instruction: TAKE ONE TABLET BY MOUTH DAILY NEEDED FOR weight gain Rx Instructions: TAKE ONE TABLET BY MOUTH DAILY NEEDED FOR weight gain fluticasone propionate 50 mcg/actuation spray,suspension See Rx Instructions .ROUTE .COMPLEX Qty: 16 2RF Dose Instruction: INSTILL 2 SPRAYS IN EACH NOSTRIL EVERY DAY Rx Instructions: INSTILL 2 SPRAYS IN EACH NOSTRIL EVERY DAY cetirizine [Zyrtec] 10 mg tablet 10 mg PO DAILY PRN (Reason: allergy symptoms) Qty: 90 1RF aspirin 81 mg Tablet,Delayed Release (Dr/Ec) 81 mg PO DAILY Discontinued metoprolol succinate 25 mg tablet extended release 24 hr 25 mg PO DAILY Qty: 180 3RF Entresto 24-26 mg tablet See Rx Instructions .ROUTE .COMPLEX Qty: 180 2RF Dose Instruction: TAKE 1 TABLET BY MOUTH TWICE DAILY Rx Instructions: TAKE 1 TABLET BY MOUTH TWICE DAILY doxycycline hyclate 100 mg capsule 100 mg PO BID 10 Days Qty: 20 0RF cefdinir 300 mg capsule 300 mg PO BID Discharge Orders: Discharge Order (Routine); Ordered 08/09/24 Ordered By: Spencer Dorsey Other Ambulatory Orders: DME: Walker (Order) Location: None Selected Ordered By: Spencer Dorsey Referrals: [facility] [Outside] [facility] [Outside] Laura Valentine MD [Physician] - 1 week (We have notified your physician's clinic of the need for a follow-up appointment to be scheduled. If you have not heard from them within the next 2 business days, please call them directly. ) Vanna Conde FNP-C [Primary Care Provider] - 08/11/24 9:40 am () Discharge Diet: Cardiac Discharge Activity: Resume usual activity Patient Instructions: Opioid Safety Activity Restrictions/Additional Instructions: - Please ambulate with care - When changing positions such as standing up from a seated position you have the higher risk of falls - Please give yourself time when you are changing positions - If you have a fall please call 911 - Please always have walker beside you when changing positions, especially when getting up out of bed in the middle the night - Please wear compression stockings - I have temporarily stopped her metoprolol, he might need to be reinstituted in the near future based on your clinical progress - Continue to hold Entresto for now - Please drink Ensure drinks twice daily - Follow-up with your primary care provider for rechecking her orthostatic vitals as outpatient - For your pulmonary nodule, please follow-up with your primary care provider, this needs to be monitored as outpatient Discharge Attestations Time Spent in Discharge Care*: greater than 30 min Status at Discharge: Cognitive status at discharge: cognitively intact , Behavioral status at discharge: cooperative , Quality Metrics Clinical Quality Measures [ No reported AMI, CVA or VTE this stay] Coding Level of Care Code 51513 Total time (in minutes) for Discharge: 45 Diagnoses Weight loss R63.4 Orthostatic hypotension I95.1 Bronchitis J40 Heart failure, left, with LVEF <=30% I50.1 Hypokalemia E87.6 S/P implantation of automatic cardioverter/defibrillator (AICD) Z95.810 CAD (coronary artery disease) I25.10 Protein-calorie malnutrition, moderate E44.0 Physical deconditioning R53.81
[2024-08-09 10:39] LABS: Cosyntropin 1 Hour 31.51 mcg/dL
[2024-08-09 11:27] VITALS: BP 119/77; PULSE 66; RESP 16; TEMP 36.7; O2SAT 96
== END 2024-08-09 13:15 | disposition home health service (06) | DRG 312 ==
LOC: ER 21:54 → MEDSURG 22:24
PROVIDERS: Admitting Provider Internal Medicine; Emergency Provider Emergency Medicine; PCP Nurse Practitioner Family; Visit Provider Family Medicine
DX: I95.1 Orthostatic hypotension (principal); I50.22 Chronic systolic (congestive) heart failure; E44.0 Moderate protein-calorie malnutrition; Z68.1 Body mass index [BMI] 19.9 or less, adult; J40 Bronchitis, not specified as acute or chronic; I11.0 Hypertensive heart disease with heart failure; E87.6 Hypokalemia; I25.10 Atherosclerotic heart disease of native coronary artery without angina pectoris; F41.9 Anxiety disorder, unspecified; J32.9 Chronic sinusitis, unspecified; Z79.82 Long term (current) use of aspirin; Z95.810 Presence of automatic (implantable) cardiac defibrillator
CPT/HCPCS: 36415; 71045; 71275; 74176; 80048; 80053; 81001; 82533; 82607; 82746; 83605; 83735; 83880; 84145; 84443; 84484; 85025; 85378; 86140; 86592; 93005; 96372; 97116; 97161; 97167; 97530; 99285; G0378; J0834; J1650; J7030; J9999

== ENCOUNTER → 2024-09-05 09:51 | Outpatient (BNVA) | payer MEDICARE, SELFPAY | PROVIDERS: PCP Nurse Practitioner Family; Visit Provider Nurse Practitioner Family | DX: I11.0 Hypertensive heart disease with heart failure (principal); I50.23 Acute on chronic systolic (congestive) heart failure; I42.8 Other cardiomyopathies; I47.20 Ventricular tachycardia, unspecified; Z79.82 Long term (current) use of aspirin; Z95.810 Presence of automatic (implantable) cardiac defibrillator; I42.9 Cardiomyopathy, unspecified | CPT/HCPCS: 99213 ==

== ENCOUNTER → 2024-10-14 11:20 | Outpatient (BNVA) | payer MEDICARE, SELFPAY | PROVIDERS: PCP Nurse Practitioner Family; Visit Provider Internal Medicine Cardiovascular Disease | DX: Z45.02 Encounter for adjustment and management of automatic implantable cardiac defibrillator (principal) | CPT/HCPCS: 93296 ==

== ENCOUNTER 2024-10-21 10:55 | Outpatient (CLI) | payer MEDICARE, SELFPAY ==
--- NOTE | 2024-10-21 12:00 | USCV_ITS ---
Lorie Wong Age: 78 Gender: F : 1945 Exam Date: 10/21/2024 12:03 Ordering Phys: Patricia Ch NP Technologist: JAY Exam Location: [facility] [place] Indication: SHF BP: 124 / 74 HR: 99 Rhythm: Sinus Technical Quality: Adequate MEASUREMENTS (Male / Female) Normal Values 2D ECHO LV Diastolic Diameter PLAX 5.3 cm 4.2 - 5.9 / 3.9 - 5.3 cm IVS Diastolic Thickness 1.1 cm 0.6 - 1.0 / 0.6 - 0.9 cm IVS Systolic Thickness 1.3 cm LVPW Diastolic Thickness 1.3 cm 0.6 - 1.0 / 0.6 - 0.9 cm LVPW Systolic Thickness 1.7 cm LVOT Diameter 2.0 cm LV Ejection Fraction 2D Teich 46.1 % LV Ejection Fraction MOD 4C 45.1 % LV Ejection Fraction MOD 2C 31.3 % LV Ejection Fraction 2C AL 33.6 % LA Diameter 3.9 cm RA Systolic Volume 4C AL 51.3 ml RA Systolic Volume 4C MOD 48.4 ml LA Sys Volume AL 61.0 cm cubed LA Sys Volume Index AL 39.3 cm cubed/m squared Aorta at Sinotubular Diameter 3.2 cm M-MODE LA Ao Ratio MM 1.6 AV Cusp Separation MM 1.5 cm DOPPLER AV Peak Velocity 101.0 cm/s LVOT Peak Velocity 67.0 cm/s AV Area Cont Eq vti 2.1 cm squared AV Area Cont Eq pk 2.0 cm squared MV Peak Velocity 98.0 cm/s MV Area PHT 6.2 cm squared Mitral E to A Ratio 2.8 TR Peak Velocity 117.0 cm/s TR Peak Gradient 5.5 mmHg TV Peak E Velocity 88.0 cm/s PV Peak Velocity 91.0 cm/s FINDINGS Left Ventricle Diffuse hypokinesia of the left to 1 degree with ejection fraction of 34%. Mildly dilated left ventricle Right Ventricle Pacemaker/defibrillator wire in the right ventricle Right Atrium Pacemaker/defibrillator wire in the right atrium Left Atrium Mildly increased left atrial size. Mitral Valve Normal LV size and ejection fraction.mild mitral valve regurgitation. Aortic Valve Structurally normal trileaflet aortic valve. Tricuspid Valve No gross abnormalities noted Pulmonic Valve Pulmonic valve not well visualized. Mild pulmonary valve regurgitation. Pericardium No pericardial effusion. Aorta Normal aortic annulus size. IVC Inferior vena cava not visualized. CONCLUSIONS Diffuse hypokinesia of the left to 1 degree with ejection fraction of 34%. Mildly dilated left ventricle. Pacemaker/defibrillator wire of the right atrium/ventricle Mild mitral valve regurgitation. Mild pulmonary valve regurgitation. Mildly increased left atrial size. There is no pericardial effusion. Compared to the study from 07/06/2022, there may not be a significant change Dr Laura Valentine MD FAC (Electronically Signed) Final Date: 24 October 2024 18:30 S
== END 2024-10-21 10:56 | disposition home or self-care (01) ==
LOC: RAD 10:56
PROVIDERS: PCP Nurse Practitioner Family; Visit Provider Nurse Practitioner Family
DX: I42.9 Cardiomyopathy, unspecified (principal); R93.1 Abnormal findings on diagnostic imaging of heart and coronary circulation; I51.7 Cardiomegaly; Z96.89 Presence of other specified functional implants; I34.0 Nonrheumatic mitral (valve) insufficiency; I37.1 Nonrheumatic pulmonary valve insufficiency
CPT/HCPCS: 93306

== ENCOUNTER → 2024-12-09 14:01 | Outpatient (BNVA) | payer MEDICARE, SELFPAY | PROVIDERS: PCP Nurse Practitioner Family; Visit Provider Internal Medicine Cardiovascular Disease | DX: I11.0 Hypertensive heart disease with heart failure (principal); I50.1 Left ventricular failure, unspecified; I47.20 Ventricular tachycardia, unspecified; I42.8 Other cardiomyopathies; Z79.82 Long term (current) use of aspirin; Z95.810 Presence of automatic (implantable) cardiac defibrillator | CPT/HCPCS: 99214 ==

== ENCOUNTER → 2024-12-10 14:55 | Outpatient (BNVA) | payer MEDICARE, SELFPAY | PROVIDERS: PCP Nurse Practitioner Family; Visit Provider Nurse Practitioner Family | DX: S80.861A Insect bite (nonvenomous), right lower leg, initial encounter (principal); W57.XXXA Bitten or stung by nonvenomous insect and other nonvenomous arthropods, initial encounter | CPT/HCPCS: 80053; 85025 ==

== ENCOUNTER → 2025-02-10 12:57 | Outpatient (BNVA) | payer MEDICARE, SELFPAY | PROVIDERS: PCP Nurse Practitioner Family; Visit Provider Internal Medicine Cardiovascular Disease | DX: Z95.810 Presence of automatic (implantable) cardiac defibrillator (principal); I42.8 Other cardiomyopathies; I50.1 Left ventricular failure, unspecified; I47.20 Ventricular tachycardia, unspecified | CPT/HCPCS: 99214 ==

== ENCOUNTER → 2025-02-11 12:49 | Outpatient (BNVA) | payer MEDICARE, SELFPAY | PROVIDERS: PCP Nurse Practitioner Family; Visit Provider Internal Medicine Cardiovascular Disease | DX: Z45.02 Encounter for adjustment and management of automatic implantable cardiac defibrillator (principal) | CPT/HCPCS: 93296 ==

== ENCOUNTER → 2025-03-31 13:34 | Outpatient (BNVA) | payer MEDICARE, SELFPAY | PROVIDERS: PCP Nurse Practitioner Family; Visit Provider Nurse Practitioner Family | DX: I10 Essential (primary) hypertension (principal); F41.9 Anxiety disorder, unspecified | CPT/HCPCS: 80053; 80061; 84443; 85025 ==

== ENCOUNTER 2025-04-10 13:28 | Outpatient (CLI) | payer MEDICARE, SELFPAY ==
--- NOTE | 2025-04-10 14:30 | XR_ITS ---
WS: [id number] SCREENING DEXA SCAN happn CLINICAL INFORMATION: M81.0 - Age-related osteoporosis without current patholog... COMPARISON: 2022 FINDINGS: The L1-L4 bone mineral density measures 1.208 g/cm2. This corresponds to a T score score of 0.2 and Z score of 2.5. Left femoral neck bone mineral density measures 0.693 g/cm2. This corresponds to a T score of -2.5 and Z score of -0.2. Right femoral neck bone mineral density measures 0.678 g/cm2. This corresponds to a T score -2.6of and Z score of -0.3. Mean femoral neck bone mineral density measures 0.686 g/cm2. This corresponds to a T score of -2.6 and Z score of -0.3. XR/XR DEXA axial skeleton* 91824 IMPRESSION: Normal bone mineralization lumbar spine. Osteoporosis femoral necks. Patient's FRAX calculated 10 year probability for major osteoporotic fracture i s 26.8% and osteoporotic hip fracture is 12.6%. Bone density lumbar spine increased 3.0% Bone density femoral necks decreased -0.9%
== END 2025-04-10 13:29 | disposition home or self-care (01) ==
LOC: RAD 13:29
PROVIDERS: PCP Nurse Practitioner Family; Visit Provider Nurse Practitioner Family
DX: Z13.820 Encounter for screening for osteoporosis (principal); M81.0 Age-related osteoporosis without current pathological fracture
CPT/HCPCS: 77080

== ENCOUNTER 2025-04-13 10:35 | Emergency (ER) | payer MEDICARE, SELFPAY ==
[2025-04-13 10:39] VITALS: BP 132/84; PULSE 78; TEMP 36.5; O2SAT 96; BMI 18.9
--- NOTE | 2025-04-13 10:42 | XR_ITS ---
WS: [id number] Portable AP upright chest, 04/13/2025 Clinical Data: cp Comparison: None. Findings: There is a patchy opacity adjacent to the right cardiophrenic angle and a small right pleural effusion. No nodules or masses are seen. The heart is enlarged. The pulmonary vascularity is not increased. No pneumothorax is seen. The aortic arch shows tortuosity as does the descending thoracic aorta. There is a 2-lead pacemaker unchanged in position. XR/XR chest 1V portable 23511 Impression: 1. Patchy opacity at right cardiophrenic angle which could represent atelectasi s and/or pneumonia. 2. Small right pleural effusion. 3. Cardiomegaly, atherosclerosis and permanent pacemaker.
--- NOTE | 2025-04-13 10:42 | ECG_ITS ---
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 Measurements Intervals [place] Rate: 76 P: 0 [place]: 0 QRS: -82 QRSD: 134 T: 96 QT: 418 QTc: 470 Interpretive Statements ELECTRONIC VENTRICULAR PACEMAKER WITH ECTOPIC VENTRICULAR COMPLEX VENTRICULAR PACED RHYTHM ABNORMAL RHYTHM ECG Compared to ECG 08/05/2024 19:06:18 No significant changes Electronically Signed On 04-16-2025 16:30:40 [employer] by Segundo Oliva M.D. [email or web address]
[2025-04-13 11:07] LABS: Hematocrit 45.6 % (36-47); Hemoglobin 14.40 g/dL (11.27-16.99); Mean Corpuscular HGB Conc 31.6 g/dL (30-55); Mean Corpuscular Hemoglobin 29.9 pg (27-33); Mean Corpuscular Volume 94.8 fl (85-98); Nucleated Red Blood Cells % 0 %; Platelet Count 220 10^3/cmm (157-399); Red Blood Count 4.81 10^6/uL (3.85-5.65); White Blood Count 7.94 10^3/uL (3.29-11.43)
[2025-04-13 11:28] LABS: Troponin(5th) Baseline 23 ng/L (0-10)
[2025-04-13 11:38] LABS: Alanine Aminotransferase 22 U/L (0-33); Albumin Level 4.5 g/dL (3.5-5.2); Alkaline Phosphatase 72 U/L (35-105); Anion Gap 17.5 (5-19); Aspartate Amino Transferase 22 U/L (0-32); Blood Urea Nitrogen 20 mg/dL (8-23); Calcium 10.0 mg/dL (8.5-10.5); Carbon Dioxide 26 mmol/L (22-29); Chloride 102 mmol/L (98-107); Globulin 2.0 g/dL (1.3-4.6); Glucose 122 mg/dL (65-115); Lipase 20 U/L (13-60); Osmolality Calculated 296 mOsm/kg (285-295); Potassium 4.5 mmol/L (3.5-5.1); Sodium 141 mmol/L (136-145); Total Protein 6.5 g/dL (6.6-8.7)
[2025-04-13 11:58] LABS: NT Pro B Type Natriuretic Pept 13290 pg/mL (0-450)
--- NOTE | 2025-04-13 13:05 | W.ED.SOB ---
HPI - SOB/Dyspnea General: Chief Complaint: Shortness of Breath/Dyspnea Stated Complaint: sob, high bp, chest pain, nauses Time Seen by Provider: 04/13/25 13:03 History of Present Illness: HPI Narrative: 79-year-old female who presents emergency room complaining of moderately productive cough and some shortness of breath. She denies any chest pain. She has noticed a little bit of increased swelling in her legs she has some mild exertional dyspnea. She denies any hemoptysis. She has had problems with systolic congestive heart failure in the past. Previous evaluation showed ejection fractions in the 35 to 45% range. She has not noticed any orthopnea recently. Associated symptoms: Reports chest congestion; Deny abdominal pain, chest pain or fever(s) Related Data Home Medications ?Medication ?Instructions ?Recorded ?Confirmed aspirin 81 mg tablet,delayed 81 mg PO DAILY 03/12/23 03/31/25 release calcium carbonate (Calcium 600) 600 mg PO DAILY 12/09/24 03/31/25 multivitamin 1 tab PO DAILY 12/09/24 03/31/25 Previous Rx's ?Medication ?Instructions ?Recorded metoprolol tartrate 25 mg tablet 12.5 mg (1/2 x 25 mg) PO BID #90 12/09/24 tabs nitroglycerin 0.4 mg sublingual 0.4 mg sublingual Q5M PRN Chest 12/09/24 tablet Pain #25 tabs potassium chloride 8 mEq See Rx Instructions .Route 01/08/25 tablet,extended release .COMPLEX #90 tabs midodrine 5 mg tablet 5 mg PO TID #270 tabs 02/10/25 furosemide 20 mg tablet See Rx Instructions .Route 03/03/25 .COMPLEX #90 tabs fluticasone propionate 50 See Rx Instructions .Route 03/09/25 mcg/actuation nasal .COMPLEX #16 grams spray,suspension furosemide 40 mg tablet (Lasix) 40 mg PO DAILY #30 tabs 04/13/25 levofloxacin 500 mg tablet 500 mg PO DAILY 7 days #7 tabs 04/13/25 Allergies Allergy/AdvReac Type Severity Reaction Status Date / Time No Known Allergies Allergy Verified 04/13/25 10:51 Review of Systems Const: Denies: fever(s) or chills Card: Denies: chest pain Resp: Reports: dyspnea, productive cough and chest congestion GI: Denies: abdominal pain : Denies: dysuria, urinary frequency or urinary urgency Musc: Denies: neck pain or back pain Skin/Breast: Denies: rash PFSH ED PFSH: Medical History Enrolled in chronic care management Weight loss Heart failure, left, with LVEF <=30% Arrhythmia Benign essential HTN Near syncope Cardiomyopathy Hx of chest pain Hypertension Anxiety Hx of cardiomyopathy Hx of viral pericarditis Hx of cardiac arrhythmia History of chronic fatigue Hx of essential hypertension Surgical History History of partial hysterectomy History of breast lump removal Family History Brother CAD (coronary artery disease) unknown age of onset Mother Dementia Father Diabetes Other Suicide Denies family history of Clotting disorder Chronic kidney disease (CKD) Anesthesia complication Bleeding disorder Lung disease Cancer Stroke Social History Smoking and tobacco/nicotine status: never used tobacco/nicotine Second hand smoke exposure: Yes Alcohol intake: never Substance/Drug Use: never Lives independently: Yes Household members: significant other Marital status: Life Partner Current gender identity: Female Special yennifer needs: No Agree to transfusion: Yes Physical Exam Const: COMMON NORMALS: no acute distress GENERAL APPEARANCE: cooperative and comfortable ORIENTATION/CONSCIOUSNESS: Yes awake, Yes oriented to person, Yes oriented to place and Yes oriented to time HENMT: COMMON NORMALS: normocephalic, atraumatic and hearing grossly normal bilaterally HEAD & SCALP: normocephalic and atraumatic Resp: COMMON NORMALS: normal respiratory effort, No retractions and No use of accessory muscles AUSCULTATION: rales Cardio: COMMON NORMALS: regular rate, regular rhythm and No murmurs present (Cardio) RATE: regular rate RHYTHM: regular rhythm GI: COMMON NORMALS: Soft to palpation and No hepatosplenomegaly present AUSCULTATION: Yes normoactive bowel sounds PALPATION: Yes Soft to palpation, No Tenderness to palpation present (GI), No Guarding due to palpation present (GI) and Yes No hepatosplenomegaly present Extremity: COMMON NORMALS: normal to inspection, capillary refill normal, no clubbing, cyanosis or edema, no calf tenderness and no pedal edema Neuro: SENSORIUM/ORIENTATION: Yes oriented to person, Yes oriented to place and Yes oriented to time Skin: COMMON NORMALS: no rashes or lesions noted GENERAL SKIN EXAM: no rashes or lesions noted Course Vital Signs: Vital signs: Vital Signs Temperature 97.7 F 04/13/25 10:39 Pulse Rate 78 04/13/25 10:39 Blood Pressure 132/84 04/13/25 10:39 Pulse Oximetry 96 04/13/25 10:39 Oxygen Delivery Me thod Room Air 04/13/25 10:39 MDM - SOB/Dyspnea Medical Decision Making Medical decision making Social determinants: Generalized weakness age patient has assistance from a family member I reviewed the patient's medical record. I reviewed the patient's current home meds. Alternate historians: None Differential diagnosis: CHF pneumonia viral upper respiratory infection Lab Review: CBC is normal. Hemoglobin 14.4 hematocrit 45 6. Differential is normal troponin does not show positive delta BNP is elevated at 13,000 290. Imaging: Slight increased vascular markings right lower lobe infiltrate Assessment of risk Level of risk: Low moderate Hospitalization considerations: Patient candidate for hospitalization pending on findings from workup. Further there is significant pneumonia or worsening of heart failure. Reexamination: Unchanged Assessment and plan: Patient not requiring oxygen chest x-ray does show some some increased pulmonary vascular markings as well as infiltrate will increase her Lasix to 40 daily and have her follow-up with cardiology within the next few days. Additionally put her on levofloxacin 500 mg once daily x 7 days if there is any worsening of symptoms or develops fever increased chest pain or shortness of breath return to the emergency room Lab Data 04/13/25 11:00 04/13/25 11:00 Labs/Radiology: Radiology Impressions Chest X-Ray 04/13/25 10:42 Impression: 1. Patchy opacity at right cardiophrenic angle which could represent atelectasis and/or pneumonia. 2. Small right pleural effusion. 3. Cardiomegaly, atherosclerosis and permanent pacemaker. Laboratory Results WBC 7.94 10^3/uL (3.29-11.43) 04/13/25 11:00 RBC 4.81 10^6/uL (3.85-5.65) 04/13/25 11:00 Hgb 14.40 g/dL (11.27-16.99) 04/13/25 11:00 Hct 45.6 % (36-47) 04/13/25 11:00 MCV 94.8 fl (85-98) 04/13/25 11:00 MCH 29.9 pg (27-33) 04/13/25 11:00 MCHC 31.6 g/dL (30-55) 04/13/25 11:00 RDW 13.2 % (12.1-15.1) 04/13/25 11:00 Plt Count 220 10^3/cmm (157-399) 04/13/25 11:00 MPV 11.2 fL (7.4-10.4) H 04/13/25 11:00 Neut % (Auto) 77.8 % 04/13/25 11:00 Lymph % (Auto) 14.7 % 04/13/25 11:00 [place] % (Auto) 5.9 % 04/13/25 11:00 Eos % (Auto) 0.8 % 04/13/25 11:00 Baso % (Auto) 0.5 % 04/13/25 11:00 Neut # (Auto) 6.18 10^3/uL (1.8-7.7) 04/13/25 11:00 Lymph # (Auto) 1.2 10^3/uL (0.8-4.8) 04/13/25 11:00 [place] # (Auto) 0.5 10^3/uL (0.2-0.9) 04/13/25 11:00 Eos # (Auto) 0.1 10^3/uL (0.0-0.8) 04/13/25 11:00 Baso # (Auto) 0.0 10^3/uL (0.0-0.1) 04/13/25 11:00 Nucleated RBC % (auto) 0 % 04/13/25 11:00 Nucleated RBCs # 0.0 /100WBC 04/13/25 11:00 Sodium 141 mmol/L (136-145) 04/13/25 11:00 Potassium 4.5 mmol/L (3.5-5.1) 04/13/25 11:00 Chloride 102 mmol/L (98-107) 04/13/25 11:00 Carbon Dioxide 26 mmol/L (22-29) 04/13/25 11:00 Anion Gap 17.5 (5-19) 04/13/25 11:00 BUN 20 mg/dL (8-23) 04/13/25 11:00 Creatinine 0.7 mg/dL (0.5-0.9) 04/13/25 11:00 GFR Calculation Not Reportable 04/13/25 11:00 Glucose 122 mg/dL (65-115) H 04/13/25 11:00 Calculated Osmolality 296 mOsm/kg (285-295) H 04/13/25 11:00 Calcium 10.0 mg/dL (8.5-10.5) 04/13/25 11:00 Total Bilirubin 0.9 mg/dL (0.15-1.2) 04/13/25 11:00 AST 22 U/L (0-32) 04/13/25 11:00 ALT 22 U/L (0-33) 04/13/25 11:00 Alkaline Phosphatase 72 U/L (35-105) 04/13/25 11:00 Troponin T Baseline 23 ng/L (0-10) H 04/13/25 11:00 Troponin T 60 Minute 21.22 ng/L (0-10) H 04/13/25 12:04 Delta Troponin T -1.78 ABS# (0-10) L 04/13/25 12:04 NT-Pro-B Natriuret Pep 97338 pg/mL (0-450) H 04/13/25 11:00 Total Protein 6.5 g/dL (6.6-8.7) L 04/13/25 11:00 Albumin 4.5 g/dL (3.5-5.2) 04/13/25 11:00 Globulin 2.0 g/dL (1.3-4.6) 04/13/25 11:00 Lipase 20 U/L (13-60) 04/13/25 11:00 All radiology interpretation(s) finalized by discharge EKG Data EKG 1: I personally reviewed and interpreted this EKG as follows: Interpretation: EKG 04/13/2025 1046 paced rhythm rate of 76 no further analysis possible. Unchanged from previous EKG. 08/05/2024 EKG 2: I personally reviewed and interpreted this EKG as follows: Interpretation: EKG 04/13/2025 1310 paced rhythm rate of 75. No further analysis possible unchanged from previous EKGs. Discharge Plan Discharge Patient Disposition: Home Clinical Impression: CHF (congestive heart failure), RLL pneumonia Condition: Stable Prescriptions: New furosemide [Lasix] 40 mg tablet 40 mg PO DAILY Qty: 30 0RF levofloxacin 500 mg tablet 500 mg PO DAILY 7 Days Qty: 7 0RF No Action multivitamin Tablet 1 tab PO DAILY calcium carbonate [Calcium 600] 600 mg calcium (1,500 mg) tablet 600 mg PO DAILY metoprolol tartrate 25 mg tablet 12.5 mg PO BID Qty: 90 3RF nitroglycerin 0.4 mg tablet, sublingual 0.4 mg SUBLINGUAL Q5M PRN (Reason: Chest Pain) Qty: 25 3RF Rx Instructions: do not exceed 3 doses per episode midodrine 5 mg tablet 5 mg PO TID Qty: 270 3RF Rx Instructions: do not give last dose of day after 6PM or within 4 hrs of bedtime potassium chloride 8 mEq tablet extended release See Rx Instructions .ROUTE .COMPLEX Qty: 90 3RF Dose Instruction: TAKE 1 TABLET BY MOUTH ONCE DAILY ONLY if you take lasix Rx Instructions: TAKE 1 TABLET BY MOUTH ONCE DAILY ONLY if you take lasix furosemide 20 mg tablet See Rx Instructions .ROUTE .COMPLEX Qty: 90 1RF Dose Instruction: TAKE ONE TABLET BY MOUTH DAILY NEEDED FOR weight gain Rx Instructions: TAKE ONE TABLET BY MOUTH DAILY NEEDED FOR weight gain fluticasone propionate 50 mcg/actuation spray,suspension See Rx Instructions .ROUTE .COMPLEX Qty: 16 2RF Dose Instruction: INSTILL 2 SPRAYS IN EACH NOSTRIL EVERY DAY Rx Instructions: INSTILL 2 SPRAYS IN EACH NOSTRIL EVERY DAY aspirin 81 mg Tablet,Delayed Release (Dr/Ec) 81 mg PO DAILY Discharge Orders: Discharge ED (Routine); Ordered 04/13/25 Ordered By: Donato Peters Referrals: Carolee Lan FNP [Primary Care Provider, Family Practice] Discharge Diet: Low Salt Discharge Activity: Increase activity as tolerated Patient Instructions: Opioid Safety, Pain Management, Patient Portal & Doris Instructions Activity Restrictions/Additional Instructions: Thank you for choosing [facility] for your healthcare needs today. It is very important that you follow up as instructed or that you return to the Emergency Department should you have concerns or if your condition changes or worsens in any way. Emergency department visits are focused on emergent conditions, in some cases you may require further evaluation on an outpatient basis. You were seen in emergency room with complaints of shortness of breath your laboratory test showed slight worsening of your congestive heart failure recommend you increase your Lasix to 40 mg once a day for the next 5 days. There is also a small area of possible pneumonia we gave you prescription for an antibiotic 1 pill daily for 7 days. Case management will arrange for short-term follow-up with cardiology. (Please note that included in your discharge packet is information concerning opioid safety and pain management. 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
--- NOTE | 2025-04-13 13:10 | ECG_ITS ---
[facility] Date: 2025-04-13 Pat Name: Lorie Wong Department: Room: Gender: Female Deliverer Food: : 1945 Requested By: Jessi Oliva Order Number: [id number] Reading MD: FARHAD CHASE Measurements Intervals [place] Rate: 75 P: 50 MS: 213 QRS: -89 QRSD: 140 T: 105 QT: 423 QTc: 475 Interpretive Statements ELECTRONIC VENTRICULAR PACEMAKER ABNORMAL RHYTHM ECG Compared to ECG 04/13/2025 10:46:02 No significant changes Electronically Signed On 04-16-2025 18:52:44 MONEY MARKET CLERK by FARHAD CHASE [id number]
== END 2025-04-13 13:30 | disposition home or self-care (01) ==
PROVIDERS: Emergency Medicine; Emergency Provider Family Medicine; PCP Nurse Practitioner Family
DX: J18.9 Pneumonia, unspecified organism (principal); Z79.82 Long term (current) use of aspirin; I11.0 Hypertensive heart disease with heart failure; I50.20 Unspecified systolic (congestive) heart failure
CPT/HCPCS: 36415; 71045; 80053; 83690; 83880; 84484; 85025; 93005; 99285